=== PATIENT | female | born 1955 | race Asian ===

== ENCOUNTER → 2018-02-16 14:17 | Outpatient (CLI) | payer MEDICARE, OTHER, SELFPAY ==
--- NOTE | 2018-02-16 | DI.MRI.S_ITS ---
PROCEDURE: MR HEAD/BRAIN WO CON INDICATIONS: Tremors. Vertigo TECHNIQUE: Non-contrast axial T1 spin echo, axial T2 fast spin echo, sagittal and axial FLAIR, coronal T2 fast spin echo, axial gradient echo, axial diffusion and ADC through the brain. COMPARISON: None. FINDINGS: Image quality: Excellent. CSF spaces: Ventricles appear symmetric in size and shape. Basal cisterns are patent. No extra-axial fluid collections. Brain: No intracranial bleeds or mass effects. There is moderate cerebral volume loss for age. There are moderate periventricular and deep white matter chronic small vessel ischemic changes. Brainstem appears normal. Diffusion-weighted images show no acute ischemic insults. No chronic ischemic insults. Normal intravascular flow voids are present. Skull and face: Calvarial bone marrow is normal in signal. Orbits are normal. Sinuses: Sinuses and mastoids are clear. IMPRESSION: 1. No acute intracranial abnormalities. No definite findings to explain tumors and vertical. 2. Moderate cerebral volume loss and chronic microvascular ischemic changes. 3. Ventricular dilation may be secondary to central atrophy. A differential diagnosis is normal pressure hydrocephalus. Recommend clinical correlation. Dictated by: Marva Boyer M.D. on 02/16/2018 at 15:34 Approved by: Marva Boyer M.D. on 02/16/2018 at 15:38
== END ==
PROVIDERS: PCP Nurse Practitioner Family; Visit Provider Psychiatry & Neurology Neurology
DX: R25.1 Tremor, unspecified (principal); R42 Dizziness and giddiness; G93.89 Other specified disorders of brain
CPT/HCPCS: 70551

== ENCOUNTER 2018-03-22 14:30 | Outpatient (RCR) | payer MEDICARE, OTHER, SELFPAY ==
--- NOTE | 2018-02-26 17:26 | PT.OIE ---
Current Diagnoses Parkinson's disease (02/26/18) Past Medical History (Last Updated 02/26/18 @ 17:07 by Diana Cruz, PT) Vertigo (Acute) Past Surgical History (Last Updated 02/26/18 @ 17:07 by Diana Cruz, PT) Hx of shoulder surgery (Acute) Status post delivery Status post cholecystectomy Provider Visit Care Team Role Provider Type Emily Lilalupe STOVE INSTALLER- Primary Care Provider Non-Staff Specialty: Medical Address: [address] [place] [address], [id number] Email: Rimma Bauer MD Attending Provider Non-Staff Specialty: Neurology Address: [address] [place] [address], [address] Email: Physical Therapy Initial Evaluation PT-OP-A Visit Information Start: 02/26/18 16:40 Freq: Status: Active Protocol: Document 02/26/18 14:30 AMB (Rec: 02/26/18 16:52 AMB [email or web address]) Out-Patient Physical Therapy Visit Information Visit Information Visit Type Initial Evaluation Visit Start Time 14:30 Visit Stop Time 15:30 Total Visit Minutes 60 Visit Number 1 Evaluation Information Evaluation Date 02/26/18 PT-OP-B Current Condition Start: 02/26/18 16:40 Freq: Status: Active Protocol: Document 02/26/18 14:30 AMB (Rec: 02/26/18 16:52 AMB [email or web address]) Current Condition History of Current Condition History of Current Condition The patient lives with her Juan R and was recently diagnosed with Parkinson's although she reports symptoms for years. She is retired and walks an hour a day. She has tremors in bilateral UEs and LEs worse on the left. Sinemet has been helpful for her symptoms. Prior Functional Status Baseline Function- ADL's Independent Baseline Function- Mobility Independent Current Functional Impairments (Reported) Functional Limitations- Mobility/Gait intermittent difficulty with floor transfers, difficulty washing dishes due to L hand stiffnesss, difficulty writing Personal Factors Other Personal Factors That May Effect History of L shoulder surgery. Therapy/Recovery Trigger finger on R hand. On and off history of vertigo over the past 25 years+, history of motion sensitivity. PT-OP-C Subjective Start: 02/26/18 16:40 Freq: Status: Active Protocol: Document 02/26/18 14:30 AMB (Rec: 02/26/18 16:52 AMB [email or web address]) OP-PT Subjective Patient Comments Patient Reported Progress Improving Patient Questionnaires ABC- Activity Specific Balance Confidence Scale ABC Functional Impairment 0% Impaired (Score 100) PT-OP-D Balance Start: 02/26/18 17:00 Freq: Status: Active Protocol: Document 02/26/18 14:30 AMB (Rec: 02/26/18 17:03 AMB [email or web address]) Balance Tests Single Limb Standing Single Limb- Right 7 seconds Single Limb- Left 9 seconds Semi-Tandem Standing Semi-Tandem Standing Balance with slow head turns, no increase in symptoms, slight ankle sway. Other Other Balance Tests Performed Semi tandem Eyes closed- increased ankle sway forward so that she had to open her eyes within 5 seconds. PT-OP-E Functional Tests Start: 02/26/18 16:40 Freq: Status: Active Protocol: Document 02/26/18 14:30 AMB (Rec: 02/26/18 16:59 AMB [email or web address]) Functional Tests 6 Minute Walk Test Distance 1145 feet Device Used none Comments average for age/gender:1765 feet Five Times Sit to Stand Test Score 8 seconds Comments without UE assist PT-OP-G Mobility & Gait Start: 02/26/18 16:40 Freq: Status: Active Protocol: Document 02/26/18 14:30 AMB (Rec: 02/26/18 16:59 AMB [email or web address]) OP Gait Assessment Comments Gait Comments Decreased arm swing bilaterally worse on the L. Forefoot strike bilaterally. Lack of trunk rotation. PT-OP-J Posture/Palpation/Skin Start: 02/26/18 16:40 Freq: Status: Active Protocol: Document 02/26/18 14:30 AMB (Rec: 02/26/18 17:03 AMB [email or web address]) Posture Evaluation Comments Posture Comments Mild increased thoracic kyphosis. PT-OP-K Range of Motion Start: 02/26/18 16:40 Freq: Status: Active Protocol: Document 02/26/18 14:30 AMB (Rec: 02/26/18 16:59 AMB [email or web address]) Shoulder Goniometric Range of Motion Shoulder Measured in Degrees Left Active Testing Position Supine Flexion 145 Abduction 140 Right Active Testing Position Supine Flexion 170 Abduction 160 PT-OP-M Strength Start: 02/26/18 16:40 Freq: Status: Active Protocol: Document 02/26/18 14:30 AMB (Rec: 02/26/18 16:59 AMB [email or web address]) Hand Assisted Living Coordinator/Pinch Strength Hand Dominance Hand Dominance Left Hand Strength Right Assisted Living Coordinator (lbs) 25 Left Assisted Living Coordinator (lbs) 20 PT-OP-T Assessment and Plan Start: 02/26/18 16:40 Freq: Status: Active Protocol: Document 02/26/18 14:30 AMB (Rec: 02/26/18 17:25 AMB [email or web address]) Physical Therapy Assessment Rehab Potential Rehabilitation Potential Excellent Evaluation Complexity Number of Personal Factors/Comorbidities 1-2 Number of Body Systems Impaired 4 or More Clinical Presentation at Evaluation Evolving Impairments Impairments Balance Functional Activities Gait ROM Strength Goals Four Impairment ADLs Short Term Goal (STG) The patient will improve her customer advisor strength to 35# bilaterally. STG Duration 2 weeks Machine Repair Person Goal (LTG) The patient will improve her hand flexibility so that she can wash the inside of a water glass while washing dishes. LTG Duration 4 weeks Three Impairment Functional mobility Short Term Goal (STG) The patient will move from the floor to standing without environmental support. STG Duration 2 weeks Two Impairment Range of motion Short Term Goal (STG) The patient will increase her shoulder flexion AROM to 160 degrees to put dishes away in tall cabinets. STG Duration 2 weeks One Impairment Gait Short Term Goal (STG) The patient will show appropriate trunk rotation on her daily walks in the community. STG Duration 2 weeks Machine Repair Person Goal (LTG) The patient will improve her 6MWT to 1,325 feet (75% of normal for her gender/age). LTG Duration 4 weeks Assessment Summary Assessment The patient presents to physical therapy with a recent diagnosis of Parkinson's disease for LSVT BIG therapy. She presents with bilateral tremor and stiffness, most impacting her gait and fine motor activities. She presents with weakness, reduced range of motion, impaired balance and gait, and will benefit from physical therapy to improve her function and the amplitude of her motion. Physical Therapy Plan Frequency and Duration Frequency of Treatment 4x/Week Duration of Treatment 4 weeks Plan of Care Start Date 02/26/18 Plan of Care End Date 03/26/18 Therapeutic Interventions Therapeutic Interventions Balance Training Gait Training Home Exercise Program Manual Therapy Neuromuscular Re-education Therapeutic Activities Therapeutic Exercises Vestibular Rehabilitation Modalities Cold Pack/Ice Massage Electric Stimulation Hot Packs Next Visit Focus/Plan Next Note Type Treatment Note
--- NOTE | 2018-02-26 17:26 | PT.OPPOC ---
Current Diagnoses Parkinson's disease (02/26/18) Provider Visit Care Team [facility] Care Provider Non-Staff Specialty: Medical Address: [address], [address] Email: Rimma Bauer MD Attending Provider Non-Staff Specialty: Neurology Address: [address] [place], [address] Email: Plan Of Care PT-OP-T Assessment and Plan Start: 02/26/18 16:40 Freq: Status: Active Protocol: Document 02/26/18 14:30 AMB (Rec: 02/26/18 17:25 AMB [email or web address]) Physical Therapy Assessment Rehab Potential Rehabilitation Potential Excellent Evaluation Complexity Number of Personal Factors/Comorbidities 1-2 Number of Body Systems Impaired 4 or More Clinical Presentation at Evaluation Evolving Impairments Impairments Balance Functional Activities Gait ROM Strength Goals Four Impairment ADLs Short Term Goal (STG) The patient will improve her floor finisher helper strength to 35# bilaterally. STG Duration 2 weeks Getter Filler Goal (LTG) The patient will improve her hand flexibility so that she can wash the inside of a water glass while washing dishes. LTG Duration 4 weeks Three Impairment Functional mobility Short Term Goal (STG) The patient will move from the floor to standing without environmental support. STG Duration 2 weeks Two Impairment Range of motion Short Term Goal (STG) The patient will increase her shoulder flexion AROM to 160 degrees to put dishes away in tall cabinets. STG Duration 2 weeks One Impairment Gait Short Term Goal (STG) The patient will show appropriate trunk rotation on her daily walks in the community. STG Duration 2 weeks Custodial Goal (LTG) The patient will improve her 6MWT to 1,325 feet (75% of normal for her gender/age). LTG Duration 4 weeks Assessment Summary Assessment The patient presents to physical therapy with a recent diagnosis of Parkinson's disease for LSVT BIG therapy. She presents with bilateral tremor and stiffness, most impacting her gait and fine motor activities. She presents with weakness, reduced range of motion, impaired balance and gait, and will benefit from physical therapy to improve her function and the amplitude of her motion. Physical Therapy Plan Frequency and Duration Frequency of Treatment 4x/Week Duration of Treatment 4 weeks Plan of Care Start Date 02/26/18 Plan of Care End Date 03/26/18 Therapeutic Interventions Therapeutic Interventions Balance Training Gait Training Home Exercise Program Manual Therapy Neuromuscular Re-education Therapeutic Activities Therapeutic Exercises Vestibular Rehabilitation Modalities Cold Pack/Ice Massage Electric Stimulation Hot Packs Next Visit Focus/Plan Next Note Type Treatment Note Plan of Care Dates Plan of Care Start Date 02/26/18 Plan of Care End Date 03/26/18 Please Sign and Return: I have reviewed this Plan of Care and certify that the skilled therapy services above are required to meet the patient?s needs. Physician Signature Date Printed Name and Credentials Clinical Instructor Signature Printed Name and Credentials
--- NOTE | 2018-02-27 16:48 | PT.OTN ---
Current Diagnoses Parkinson's disease (02/27/18) Physical Therapy Treatment Note PT-OP-A Visit Information Start: 02/26/18 16:40 Freq: Status: Active Protocol: Document 02/27/18 14:30 AMB (Rec: 02/27/18 16:48 AMB [email or web address]) Out-Patient Physical Therapy Visit Information Visit Information Visit Type Treatment Note Visit Start Time 14:30 Visit Stop Time 15:30 Total Visit Minutes 60 Visit Number 2 Evaluation Information Evaluation Date 02/26/18 PT-OP-B Current Condition Start: 02/26/18 16:40 Freq: Status: Active Protocol: Document 02/26/18 14:30 AMB (Rec: 02/26/18 16:52 AMB [email or web address]) Current Condition History of Current Condition History of Current Condition The patient lives with her Juan R and was recently diagnosed with Parkinson's although she reports symptoms for years. She is retired and walks an hour a day. She has tremors in bilateral UEs and LEs worse on the left. Sinemet has been helpful for her symptoms. Prior Functional Status Baseline Function- ADL's Independent Baseline Function- Mobility Independent Current Functional Impairments (Reported) Functional Limitations- Mobility/Gait intermittent difficulty with floor transfers, difficulty washing dishes due to L hand stiffnesss, difficulty writing Personal Factors Other Personal Factors That May Effect History of L shoulder surgery. Therapy/Recovery Trigger finger on R hand. On and off history of vertigo over the past 25 years+, history of motion sensitivity. PT-OP-C Subjective Start: 02/26/18 16:40 Freq: Status: Active Protocol: Document 02/27/18 14:30 AMB (Rec: 02/27/18 16:48 AMB [email or web address]) OP-PT Subjective Patient Comments Patient Comments Pt reports she has already done her rashmi exercises today. PT-OP-D Balance Start: 02/26/18 17:00 Freq: Status: Active Protocol: Document 02/26/18 14:30 AMB (Rec: 02/26/18 17:03 AMB [email or web address]) Balance Tests Single Limb Standing Single Limb- Right 7 seconds Single Limb- Left 9 seconds Semi-Tandem Standing Semi-Tandem Standing Balance with slow head turns, no increase in symptoms, slight ankle sway. Other Other Balance Tests Performed Semi tandem Eyes closed- increased ankle sway forward so that she had to open her eyes within 5 seconds. PT-OP-E Functional Tests Start: 02/26/18 16:40 Freq: Status: Active Protocol: Document 02/26/18 14:30 AMB (Rec: 02/26/18 16:59 AMB [email or web address]) Functional Tests 6 Minute Walk Test Distance 1145 feet Device Used none Comments average for age/gender:1765 feet Five Times Sit to Stand Test Score 8 seconds Comments without UE assist PT-OP-G Mobility & Gait Start: 02/26/18 16:40 Freq: Status: Active Protocol: Document 02/26/18 14:30 AMB (Rec: 02/26/18 16:59 AMB [email or web address]) OP Gait Assessment Comments Gait Comments Decreased arm swing bilaterally worse on the L. Forefoot strike bilaterally. Lack of trunk rotation. PT-OP-J Posture/Palpation/Skin Start: 02/26/18 16:40 Freq: Status: Active Protocol: Document 02/26/18 14:30 AMB (Rec: 02/26/18 17:03 AMB [email or web address]) Posture Evaluation Comments Posture Comments Mild increased thoracic kyphosis. PT-OP-K Range of Motion Start: 02/26/18 16:40 Freq: Status: Active Protocol: Document 02/26/18 14:30 AMB (Rec: 02/26/18 16:59 AMB [email or web address]) Shoulder Goniometric Range of Motion Shoulder Measured in Degrees Left Active Testing Position Supine Flexion 145 Abduction 140 Right Active Testing Position Supine Flexion 170 Abduction 160 PT-OP-M Strength Start: 02/26/18 16:40 Freq: Status: Active Protocol: Document 02/26/18 14:30 AMB (Rec: 02/26/18 16:59 AMB [email or web address]) Hand Business Continuity Manager/Pinch Strength Hand Dominance Hand Dominance Left Hand Strength Right Business Continuity Manager (lbs) 25 Left Business Continuity Manager (lbs) 20 PT-OP-Q Treatments Start: 02/26/18 16:40 Freq: Status: Active Protocol: Document 02/27/18 14:30 AMB (Rec: 02/27/18 16:48 AMB [email or web address]) Therapeutic Exercises Sitting Exercises 3 Sitting Exercise Name gripping, finger extension Equipment Used red theraputty 2 Sitting Exercise Name Trunk rotation with forward shoulder reach Reps/Minutes 8 1 Sitting Exercise Name Forward flexion with shoulder horizontal abduction Reps/Minutes 8 Gait Training Gait Activity 1 Description smooth surfaces Comments vc for stride length, trunk rotation Neuro Re-Education Treatment Balance Activities 5 Details WBOS with trunk rotation Reps/Duration 12 Comments B UE reach 4 Details a/p weightshift in stride stance Reps/Duration 12 Comments B UE reach alternating 3 Details Backward stepping Reps/Duration 10 Comments B UE reach 2 Details Lateral stepping Reps/Duration 10 Comments B UE reach 1 Details Forward stepping Reps/Duration 10 Comments B UE reach PT-OP-T Assessment and Plan Start: 02/26/18 16:40 Freq: Status: Active Protocol: Document 02/27/18 14:30 AMB (Rec: 02/27/18 16:48 AMB [email or web address]) Physical Therapy Assessment Assessment Summary Assessment Pt should be able to perform exercises without UE support at home safely. Good tolerance but needs cueing for form. Physical Therapy Plan Next Visit Focus/Plan Next Note Type Treatment Note Next Visit Plan Progress gait/balance
--- NOTE | 2018-02-28 16:56 | PT.OTN ---
Current Diagnoses Parkinson's disease (02/28/18) Physical Therapy Treatment Note PT-OP-A Visit Information Start: 02/26/18 16:40 Freq: Status: Active Protocol: Document 02/28/18 14:30 AMB (Rec: 02/28/18 15:12 AMB [id number]) Out-Patient Physical Therapy Visit Information Visit Information Visit Type Treatment Note Visit Start Time 14:30 Visit Stop Time 15:30 Total Visit Minutes 60 Visit Number 3 Evaluation Information Evaluation Date 02/26/18 PT-OP-B Current Condition Start: 02/26/18 16:40 Freq: Status: Active Protocol: Document 02/26/18 14:30 AMB (Rec: 02/26/18 16:52 AMB [email or web address]) Current Condition History of Current Condition History of Current Condition The patient lives with her Juan R and was recently diagnosed with Parkinson's although she reports symptoms for years. She is retired and walks an hour a day. She has tremors in bilateral UEs and LEs worse on the left. Sinemet has been helpful for her symptoms. Prior Functional Status Baseline Function- ADL's Independent Baseline Function- Mobility Independent Current Functional Impairments (Reported) Functional Limitations- Mobility/Gait intermittent difficulty with floor transfers, difficulty washing dishes due to L hand stiffnesss, difficulty writing Personal Factors Other Personal Factors That May Effect History of L shoulder surgery. Therapy/Recovery Trigger finger on R hand. On and off history of vertigo over the past 25 years+, history of motion sensitivity. PT-OP-C Subjective Start: 02/26/18 16:40 Freq: Status: Active Protocol: Document 02/28/18 14:30 AMB (Rec: 02/28/18 15:12 AMB [id number]) OP-PT Subjective Patient Comments Patient Comments Pt states she did the exercises 10x. PT-OP-D Balance Start: 02/26/18 17:00 Freq: Status: Active Protocol: Document 02/26/18 14:30 AMB (Rec: 02/26/18 17:03 AMB [email or web address]) Balance Tests Single Limb Standing Single Limb- Right 7 seconds Single Limb- Left 9 seconds Semi-Tandem Standing Semi-Tandem Standing Balance with slow head turns, no increase in symptoms, slight ankle sway. Other Other Balance Tests Performed Semi tandem Eyes closed- increased ankle sway forward so that she had to open her eyes within 5 seconds. PT-OP-E Functional Tests Start: 02/26/18 16:40 Freq: Status: Active Protocol: Document 02/26/18 14:30 AMB (Rec: 02/26/18 16:59 AMB [email or web address]) Functional Tests 6 Minute Walk Test Distance 1145 feet Device Used none Comments average for age/gender:1765 feet Five Times Sit to Stand Test Score 8 seconds Comments without UE assist PT-OP-G Mobility & Gait Start: 02/26/18 16:40 Freq: Status: Active Protocol: Document 02/26/18 14:30 AMB (Rec: 02/26/18 16:59 AMB [email or web address]) OP Gait Assessment Comments Gait Comments Decreased arm swing bilaterally worse on the L. Forefoot strike bilaterally. Lack of trunk rotation. PT-OP-J Posture/Palpation/Skin Start: 02/26/18 16:40 Freq: Status: Active Protocol: Document 02/26/18 14:30 AMB (Rec: 02/26/18 17:03 AMB [email or web address]) Posture Evaluation Comments Posture Comments Mild increased thoracic kyphosis. PT-OP-K Range of Motion Start: 02/26/18 16:40 Freq: Status: Active Protocol: Document 02/26/18 14:30 AMB (Rec: 02/26/18 16:59 AMB [email or web address]) Shoulder Goniometric Range of Motion Shoulder Measured in Degrees Left Active Testing Position Supine Flexion 145 Abduction 140 Right Active Testing Position Supine Flexion 170 Abduction 160 PT-OP-M Strength Start: 02/26/18 16:40 Freq: Status: Active Protocol: Document 02/26/18 14:30 AMB (Rec: 02/26/18 16:59 AMB [email or web address]) Hand Director Of Career Services/Pinch Strength Hand Dominance Hand Dominance Left Hand Strength Right Director Of Career Services (lbs) 25 Left Director Of Career Services (lbs) 20 PT-OP-Q Treatments Start: 02/26/18 16:40 Freq: Status: Active Protocol: Document 02/28/18 14:30 AMB (Rec: 02/28/18 16:55 AMB [email or web address]) Gym Equipment Shuttle Balance 1 Details RED Reps/Duration 10 min Comments WBOS with eyes closed and then head turns Therapeutic Exercises Sitting Exercises 2 Sitting Exercise Name Trunk rotation with forward shoulder reach Reps/Minutes 8 1 Sitting Exercise Name Forward flexion with shoulder horizontal abduction Reps/Minutes 8 Standing Exercises 1 Standing Exercise Name sidestepping Reps/Minutes 6 x 20' Comments yellow t band Neuro Re-Education Treatment Balance Activities 5 Details WBOS with trunk rotation Reps/Duration 12 Comments B UE reach 4 Details a/p weightshift in stride stance Reps/Duration 12 Comments B UE reach alternating 3 Details Backward stepping Reps/Duration 10 Comments B UE reach 2 Details Lateral stepping Reps/Duration 10 Comments B UE reach 1 Details Forward stepping Reps/Duration 10 Comments B UE reach PT-OP-T Assessment and Plan Start: 02/26/18 16:40 Freq: Status: Active Protocol: Document 02/28/18 14:30 AMB (Rec: 02/28/18 16:55 AMB [email or web address]) Physical Therapy Assessment Goals Four Impairment ADLs Short Term Goal (STG) The patient will improve her data modeling specialist strength to 35# bilaterally. STG Duration 2 weeks Leasing Representative Goal (LTG) The patient will improve her hand flexibility so that she can wash the inside of a water glass while washing dishes. LTG Duration 4 weeks Three Impairment Functional mobility Short Term Goal (STG) The patient will move from the floor to standing without environmental support. STG Duration 2 weeks Two Impairment Range of motion Short Term Goal (STG) The patient will increase her shoulder flexion AROM to 160 degrees to put dishes away in tall cabinets. STG Duration 2 weeks One Impairment Gait Short Term Goal (STG) The patient will show appropriate trunk rotation on her daily walks in the community. STG Duration 2 weeks Leasing Representative Goal (LTG) The patient will improve her 6MWT to 1,325 feet (75% of normal for her gender/age). LTG Duration 4 weeks Assessment Summary Assessment The pt did well with remembering her exercises and doing them at home. She continues to need verbal cues for appropriate form. She is weak in L hip abduction and toes out more on the left than the right with gait and balance activity. Physical Therapy Plan Next Visit Focus/Plan Next Note Type Treatment Note Next Visit Plan Progress dynamic balance and trunk rotation
--- NOTE | 2018-03-01 15:51 | PT.OTN ---
Current Diagnoses Parkinson's disease (03/01/18) Physical Therapy Treatment Note PT-OP-A Visit Information Start: 02/26/18 16:40 Freq: Status: Active Protocol: Document 03/01/18 14:30 AMB (Rec: 03/01/18 15:04 AMB [id number]) Out-Patient Physical Therapy Visit Information Visit Information Visit Type Treatment Note Visit Start Time 14:30 Visit Stop Time 15:30 Total Visit Minutes 60 Visit Number 4 Evaluation Information Evaluation Date 02/26/18 PT-OP-B Current Condition Start: 02/26/18 16:40 Freq: Status: Active Protocol: Document 02/26/18 14:30 AMB (Rec: 02/26/18 16:52 AMB [email or web address]) Current Condition History of Current Condition History of Current Condition The patient lives with her Juan R and was recently diagnosed with Parkinson's although she reports symptoms for years. She is retired and walks an hour a day. She has tremors in bilateral UEs and LEs worse on the left. Sinemet has been helpful for her symptoms. Prior Functional Status Baseline Function- ADL's Independent Baseline Function- Mobility Independent Current Functional Impairments (Reported) Functional Limitations- Mobility/Gait intermittent difficulty with floor transfers, difficulty washing dishes due to L hand stiffnesss, difficulty writing Personal Factors Other Personal Factors That May Effect History of L shoulder surgery. Therapy/Recovery Trigger finger on R hand. On and off history of vertigo over the past 25 years+, history of motion sensitivity. PT-OP-C Subjective Start: 02/26/18 16:40 Freq: Status: Active Protocol: Document 03/01/18 14:30 AMB (Rec: 03/01/18 15:04 AMB [id number]) OP-PT Subjective Patient Comments Patient Comments Pt did all fo her exercises. PT-OP-D Balance Start: 02/26/18 17:00 Freq: Status: Active Protocol: Document 02/26/18 14:30 AMB (Rec: 02/26/18 17:03 AMB [email or web address]) Balance Tests Single Limb Standing Single Limb- Right 7 seconds Single Limb- Left 9 seconds Semi-Tandem Standing Semi-Tandem Standing Balance with slow head turns, no increase in symptoms, slight ankle sway. Other Other Balance Tests Performed Semi tandem Eyes closed- increased ankle sway forward so that she had to open her eyes within 5 seconds. PT-OP-E Functional Tests Start: 02/26/18 16:40 Freq: Status: Active Protocol: Document 02/26/18 14:30 AMB (Rec: 02/26/18 16:59 AMB [email or web address]) Functional Tests 6 Minute Walk Test Distance 1145 feet Device Used none Comments average for age/gender:1765 feet Five Times Sit to Stand Test Score 8 seconds Comments without UE assist PT-OP-G Mobility & Gait Start: 02/26/18 16:40 Freq: Status: Active Protocol: Document 02/26/18 14:30 AMB (Rec: 02/26/18 16:59 AMB [email or web address]) OP Gait Assessment Comments Gait Comments Decreased arm swing bilaterally worse on the L. Forefoot strike bilaterally. Lack of trunk rotation. PT-OP-J Posture/Palpation/Skin Start: 02/26/18 16:40 Freq: Status: Active Protocol: Document 02/26/18 14:30 AMB (Rec: 02/26/18 17:03 AMB [email or web address]) Posture Evaluation Comments Posture Comments Mild increased thoracic kyphosis. PT-OP-K Range of Motion Start: 02/26/18 16:40 Freq: Status: Active Protocol: Document 02/26/18 14:30 AMB (Rec: 02/26/18 16:59 AMB [email or web address]) Shoulder Goniometric Range of Motion Shoulder Measured in Degrees Left Active Testing Position Supine Flexion 145 Abduction 140 Right Active Testing Position Supine Flexion 170 Abduction 160 PT-OP-M Strength Start: 02/26/18 16:40 Freq: Status: Active Protocol: Document 02/26/18 14:30 AMB (Rec: 02/26/18 16:59 AMB [email or web address]) Hand Logistics Supply Officer/Pinch Strength Hand Dominance Hand Dominance Left Hand Strength Right Logistics Supply Officer (lbs) 25 Left Logistics Supply Officer (lbs) 20 PT-OP-Q Treatments Start: 02/26/18 16:40 Freq: Status: Active Protocol: Document 03/01/18 14:30 AMB (Rec: 03/01/18 15:13 AMB [id number]) Therapeutic Exercises Supine Exercises 1 Supine Exercise Name IT band stretch Comments 30x2 2 Supine Exercise Name hamstring stretch Reps/Minutes 30x2 Sidelying Exercises 1 Sidelying Exercise Name hip abduction Reps/Minutes 2x10 Sitting Exercises 2 Sitting Exercise Name Trunk rotation with forward shoulder reach Reps/Minutes 8 1 Sitting Exercise Name Forward flexion with shoulder horizontal abduction Reps/Minutes 8 Standing Exercises 1 Standing Exercise Name sidestepping Reps/Minutes 6 x 20' Comments yellow t band Neuro Re-Education Treatment Balance Activities 5 Details WBOS with trunk rotation Reps/Duration 12 Comments B UE reach 4 Details a/p weightshift in stride stance Reps/Duration 12 Comments B UE reach alternating 3 Details Backward stepping Reps/Duration 10 Comments B UE reach 2 Details Lateral stepping Reps/Duration 10 Comments B UE reach 1 Details Forward stepping Reps/Duration 10 Comments B UE reach PT-OP-T Assessment and Plan Start: 02/26/18 16:40 Freq: Status: Active Protocol: Document 03/01/18 14:30 AMB (Rec: 03/01/18 15:51 AMB [email or web address]) Physical Therapy Assessment Assessment Summary Assessment Pt continues to be weak in hip abduction, but overall is very compliant with her exercises. Physical Therapy Plan Next Visit Focus/Plan Next Note Type Treatment Note Next Visit Plan Progress dynamic stability
--- NOTE | 2018-03-05 17:38 | PT.OTN ---
Current Diagnoses Parkinson's disease (03/05/18) Physical Therapy Treatment Note PT-OP-A Visit Information Start: 02/26/18 16:40 Freq: Status: Active Protocol: Document 03/05/18 14:30 AMB (Rec: 03/05/18 15:17 AMB [id number]) Out-Patient Physical Therapy Visit Information Visit Information Visit Type Treatment Note Visit Start Time 14:30 Visit Stop Time 15:30 Total Visit Minutes 60 Visit Number 5 Evaluation Information Evaluation Date 02/26/18 PT-OP-B Current Condition Start: 02/26/18 16:40 Freq: Status: Active Protocol: Document 02/26/18 14:30 AMB (Rec: 02/26/18 16:52 AMB [email or web address]) Current Condition History of Current Condition History of Current Condition The patient lives with her Juan R and was recently diagnosed with Parkinson's although she reports symptoms for years. She is retired and walks an hour a day. She has tremors in bilateral UEs and LEs worse on the left. Sinemet has been helpful for her symptoms. Prior Functional Status Baseline Function- ADL's Independent Baseline Function- Mobility Independent Current Functional Impairments (Reported) Functional Limitations- Mobility/Gait intermittent difficulty with floor transfers, difficulty washing dishes due to L hand stiffnesss, difficulty writing Personal Factors Other Personal Factors That May Effect History of L shoulder surgery. Therapy/Recovery Trigger finger on R hand. On and off history of vertigo over the past 25 years+, history of motion sensitivity. PT-OP-C Subjective Start: 02/26/18 16:40 Freq: Status: Active Protocol: Document 03/05/18 14:30 AMB (Rec: 03/05/18 15:17 AMB [id number]) OP-PT Subjective Patient Comments Patient Comments Pt notes a litte soreness in her bilateral hips with hip abd exercises. PT-OP-D Balance Start: 02/26/18 17:00 Freq: Status: Active Protocol: Document 02/26/18 14:30 AMB (Rec: 02/26/18 17:03 AMB [email or web address]) Balance Tests Single Limb Standing Single Limb- Right 7 seconds Single Limb- Left 9 seconds Semi-Tandem Standing Semi-Tandem Standing Balance with slow head turns, no increase in symptoms, slight ankle sway. Other Other Balance Tests Performed Semi tandem Eyes closed- increased ankle sway forward so that she had to open her eyes within 5 seconds. PT-OP-E Functional Tests Start: 02/26/18 16:40 Freq: Status: Active Protocol: Document 02/26/18 14:30 AMB (Rec: 02/26/18 16:59 AMB [email or web address]) Functional Tests 6 Minute Walk Test Distance 1145 feet Device Used none Comments average for age/gender:1765 feet Five Times Sit to Stand Test Score 8 seconds Comments without UE assist PT-OP-G Mobility & Gait Start: 02/26/18 16:40 Freq: Status: Active Protocol: Document 02/26/18 14:30 AMB (Rec: 02/26/18 16:59 AMB [email or web address]) OP Gait Assessment Comments Gait Comments Decreased arm swing bilaterally worse on the L. Forefoot strike bilaterally. Lack of trunk rotation. PT-OP-J Posture/Palpation/Skin Start: 02/26/18 16:40 Freq: Status: Active Protocol: Document 02/26/18 14:30 AMB (Rec: 02/26/18 17:03 AMB [email or web address]) Posture Evaluation Comments Posture Comments Mild increased thoracic kyphosis. PT-OP-K Range of Motion Start: 02/26/18 16:40 Freq: Status: Active Protocol: Document 02/26/18 14:30 AMB (Rec: 02/26/18 16:59 AMB [email or web address]) Shoulder Goniometric Range of Motion Shoulder Measured in Degrees Left Active Testing Position Supine Flexion 145 Abduction 140 Right Active Testing Position Supine Flexion 170 Abduction 160 PT-OP-M Strength Start: 02/26/18 16:40 Freq: Status: Active Protocol: Document 02/26/18 14:30 AMB (Rec: 02/26/18 16:59 AMB [email or web address]) Hand Central Office Associate/Pinch Strength Hand Dominance Hand Dominance Left Hand Strength Right Central Office Associate (lbs) 25 Left Central Office Associate (lbs) 20 PT-OP-Q Treatments Start: 02/26/18 16:40 Freq: Status: Active Protocol: Document 03/05/18 14:30 AMB (Rec: 03/05/18 15:36 AMB [id number]) Gym Equipment Shuttle Balance 1 Details RED Reps/Duration 10 min Comments WBOS with eyes closed and then head turns Therapeutic Exercises Supine Exercises 1 Supine Exercise Name IT band stretch Comments 30x2 2 Supine Exercise Name hamstring stretch Reps/Minutes 30x2 Sidelying Exercises 1 Sidelying Exercise Name hip abduction Reps/Minutes 2x10 Sitting Exercises 2 Sitting Exercise Name Trunk rotation with forward shoulder reach Reps/Minutes 8 1 Sitting Exercise Name Forward flexion with shoulder horizontal abduction Reps/Minutes 8 Standing Exercises 2 Standing Exercise Name UE ext Resistance #2 t band Comments 2x10 1 Standing Exercise Name sidestepping Reps/Minutes 6 x 20' Comments yellow t band Gait Training Gait Activity 1 Description smooth surfaces Comments vc for stride length, trunk rotation Neuro Re-Education Treatment Balance Activities 5 Details WBOS with trunk rotation Reps/Duration 12 Comments B UE reach 4 Details a/p weightshift in stride stance Reps/Duration 12 Comments B UE reach alternating 3 Details Backward stepping Reps/Duration 10 Comments B UE reach 2 Details Lateral stepping Reps/Duration 10 Comments B UE reach 1 Details Forward stepping Reps/Duration 10 Comments B UE reach PT-OP-T Assessment and Plan Start: 02/26/18 16:40 Freq: Status: Active Protocol: Document 03/05/18 14:30 AMB (Rec: 03/05/18 17:38 AMB [email or web address]) Physical Therapy Assessment Assessment Summary Assessment Pt progressing well, will need to progress wrist coordination exercises Physical Therapy Plan Next Visit Focus/Plan Next Note Type Treatment Note Next Visit Plan Progress UE coordination
--- NOTE | 2018-03-07 07:20 | PT.OTN ---
Current Diagnoses Parkinson's disease (03/06/18) Physical Therapy Treatment Note PT-OP-A Visit Information Start: 02/26/18 16:40 Freq: Status: Active Protocol: Document 03/06/18 15:15 AMB (Rec: 03/07/18 07:15 AMB [email or web address]) Out-Patient Physical Therapy Visit Information Visit Information Visit Type Treatment Note Visit Start Time 14:30 Visit Stop Time 15:30 Total Visit Minutes 60 Visit Number 6 Evaluation Information Evaluation Date 02/26/18 PT-OP-B Current Condition Start: 02/26/18 16:40 Freq: Status: Active Protocol: Document 02/26/18 14:30 AMB (Rec: 02/26/18 16:52 AMB [email or web address]) Current Condition History of Current Condition History of Current Condition The patient lives with her Juan R and was recently diagnosed with Parkinson's although she reports symptoms for years. She is retired and walks an hour a day. She has tremors in bilateral UEs and LEs worse on the left. Sinemet has been helpful for her symptoms. Prior Functional Status Baseline Function- ADL's Independent Baseline Function- Mobility Independent Current Functional Impairments (Reported) Functional Limitations- Mobility/Gait intermittent difficulty with floor transfers, difficulty washing dishes due to L hand stiffnesss, difficulty writing Personal Factors Other Personal Factors That May Effect History of L shoulder surgery. Therapy/Recovery Trigger finger on R hand. On and off history of vertigo over the past 25 years+, history of motion sensitivity. PT-OP-C Subjective Start: 02/26/18 16:40 Freq: Status: Active Protocol: Document 03/06/18 15:15 AMB (Rec: 03/07/18 07:15 AMB [email or web address]) OP-PT Subjective Patient Comments Patient Comments Pt walked for an hour yesterday PT-OP-D Balance Start: 02/26/18 17:00 Freq: Status: Active Protocol: Document 02/26/18 14:30 AMB (Rec: 02/26/18 17:03 AMB [email or web address]) Balance Tests Single Limb Standing Single Limb- Right 7 seconds Single Limb- Left 9 seconds Semi-Tandem Standing Semi-Tandem Standing Balance with slow head turns, no increase in symptoms, slight ankle sway. Other Other Balance Tests Performed Semi tandem Eyes closed- increased ankle sway forward so that she had to open her eyes within 5 seconds. PT-OP-E Functional Tests Start: 02/26/18 16:40 Freq: Status: Active Protocol: Document 02/26/18 14:30 AMB (Rec: 02/26/18 16:59 AMB [email or web address]) Functional Tests 6 Minute Walk Test Distance 1145 feet Device Used none Comments average for age/gender:1765 feet Five Times Sit to Stand Test Score 8 seconds Comments without UE assist PT-OP-G Mobility & Gait Start: 02/26/18 16:40 Freq: Status: Active Protocol: Document 02/26/18 14:30 AMB (Rec: 02/26/18 16:59 AMB [email or web address]) OP Gait Assessment Comments Gait Comments Decreased arm swing bilaterally worse on the L. Forefoot strike bilaterally. Lack of trunk rotation. PT-OP-J Posture/Palpation/Skin Start: 02/26/18 16:40 Freq: Status: Active Protocol: Document 02/26/18 14:30 AMB (Rec: 02/26/18 17:03 AMB [email or web address]) Posture Evaluation Comments Posture Comments Mild increased thoracic kyphosis. PT-OP-K Range of Motion Start: 02/26/18 16:40 Freq: Status: Active Protocol: Document 02/26/18 14:30 AMB (Rec: 02/26/18 16:59 AMB [email or web address]) Shoulder Goniometric Range of Motion Shoulder Measured in Degrees Left Active Testing Position Supine Flexion 145 Abduction 140 Right Active Testing Position Supine Flexion 170 Abduction 160 PT-OP-M Strength Start: 02/26/18 16:40 Freq: Status: Active Protocol: Document 02/26/18 14:30 AMB (Rec: 02/26/18 16:59 AMB [email or web address]) Hand Marketing Database Coordinator/Pinch Strength Hand Dominance Hand Dominance Left Hand Strength Right Marketing Database Coordinator (lbs) 25 Left Marketing Database Coordinator (lbs) 20 PT-OP-Q Treatments Start: 02/26/18 16:40 Freq: Status: Active Protocol: Document 03/06/18 15:15 AMB (Rec: 03/07/18 07:15 AMB [email or web address]) Gym Equipment Shuttle Balance 1 Details RED Reps/Duration 10 min Comments stride stance with eyes closed and then head turns Therapeutic Exercises Supine Exercises 2 Supine Exercise Name hamstring stretch Reps/Minutes 30x2 Sidelying Exercises 1 Sidelying Exercise Name hip abduction Reps/Minutes 2x10 Sitting Exercises 2 Sitting Exercise Name Trunk rotation with forward shoulder reach Reps/Minutes 8 1 Sitting Exercise Name Forward flexion with shoulder horizontal abduction Reps/Minutes 8 Standing Exercises 2 Standing Exercise Name UE ext Resistance #2 t band Comments 2x10 Neuro Re-Education Treatment Balance Activities 5 Details WBOS with trunk rotation Reps/Duration 12 Comments B UE reach 4 Details a/p weightshift in stride stance Reps/Duration 12 Comments B UE reach alternating 3 Details Backward stepping Reps/Duration 10 Comments B UE reach 2 Details Lateral stepping Reps/Duration 10 Comments B UE reach 1 Details Forward stepping Reps/Duration 10 Comments B UE reach PT-OP-T Assessment and Plan Start: 02/26/18 16:40 Freq: Status: Active Protocol: Document 03/06/18 15:15 AMB (Rec: 03/07/18 07:15 AMB [email or web address]) Physical Therapy Assessment Goals Four Impairment ADLs Short Term Goal (STG) The patient will improve her carrier operator strength to 35# bilaterally. STG Duration 2 weeks Scoop Driver Goal (LTG) The patient will improve her hand flexibility so that she can wash the inside of a water glass while washing dishes. LTG Duration 4 weeks Three Impairment Functional mobility Short Term Goal (STG) The patient will move from the floor to standing without environmental support. STG Duration 2 weeks Two Impairment Range of motion Short Term Goal (STG) The patient will increase her shoulder flexion AROM to 160 degrees to put dishes away in tall cabinets. STG Duration 2 weeks One Impairment Gait Short Term Goal (STG) The patient will show appropriate trunk rotation on her daily walks in the community. STG Duration 2 weeks Scoop Driver Goal (LTG) The patient will improve her 6MWT to 1,325 feet (75% of normal for her gender/age). LTG Duration 4 weeks Assessment Summary Assessment Pt tolerates balance exercises well Physical Therapy Plan Next Visit Focus/Plan Next Note Type Treatment Note Next Visit Plan Progress coordination exercises
--- NOTE | 2018-03-07 15:34 | PT.OTN ---
Current Diagnoses Parkinson's disease (03/07/18) Physical Therapy Treatment Note PT-OP-A Visit Information Start: 02/26/18 16:40 Freq: Status: Active Protocol: Document 03/07/18 14:30 AMB (Rec: 03/07/18 15:24 AMB [id number]) Out-Patient Physical Therapy Visit Information Visit Information Visit Type Treatment Note Visit Start Time 14:30 Visit Stop Time 15:30 Total Visit Minutes 60 Visit Number 7 Evaluation Information Evaluation Date 02/26/18 PT-OP-B Current Condition Start: 02/26/18 16:40 Freq: Status: Active Protocol: Document 02/26/18 14:30 AMB (Rec: 02/26/18 16:52 AMB [email or web address]) Current Condition History of Current Condition History of Current Condition The patient lives with her Juan R and was recently diagnosed with Parkinson's although she reports symptoms for years. She is retired and walks an hour a day. She has tremors in bilateral UEs and LEs worse on the left. Sinemet has been helpful for her symptoms. Prior Functional Status Baseline Function- ADL's Independent Baseline Function- Mobility Independent Current Functional Impairments (Reported) Functional Limitations- Mobility/Gait intermittent difficulty with floor transfers, difficulty washing dishes due to L hand stiffnesss, difficulty writing Personal Factors Other Personal Factors That May Effect History of L shoulder surgery. Therapy/Recovery Trigger finger on R hand. On and off history of vertigo over the past 25 years+, history of motion sensitivity. PT-OP-C Subjective Start: 02/26/18 16:40 Freq: Status: Active Protocol: Document 03/07/18 14:30 AMB (Rec: 03/07/18 15:24 AMB [id number]) OP-PT Subjective Patient Comments Patient Comments Pt notes R knee pain today, perhaps from the squats she was doing. PT-OP-D Balance Start: 02/26/18 17:00 Freq: Status: Active Protocol: Document 02/26/18 14:30 AMB (Rec: 02/26/18 17:03 AMB [email or web address]) Balance Tests Single Limb Standing Single Limb- Right 7 seconds Single Limb- Left 9 seconds Semi-Tandem Standing Semi-Tandem Standing Balance with slow head turns, no increase in symptoms, slight ankle sway. Other Other Balance Tests Performed Semi tandem Eyes closed- increased ankle sway forward so that she had to open her eyes within 5 seconds. PT-OP-E Functional Tests Start: 02/26/18 16:40 Freq: Status: Active Protocol: Document 02/26/18 14:30 AMB (Rec: 02/26/18 16:59 AMB [email or web address]) Functional Tests 6 Minute Walk Test Distance 1145 feet Device Used none Comments average for age/gender:1765 feet Five Times Sit to Stand Test Score 8 seconds Comments without UE assist PT-OP-G Mobility & Gait Start: 02/26/18 16:40 Freq: Status: Active Protocol: Document 02/26/18 14:30 AMB (Rec: 02/26/18 16:59 AMB [email or web address]) OP Gait Assessment Comments Gait Comments Decreased arm swing bilaterally worse on the L. Forefoot strike bilaterally. Lack of trunk rotation. PT-OP-J Posture/Palpation/Skin Start: 02/26/18 16:40 Freq: Status: Active Protocol: Document 02/26/18 14:30 AMB (Rec: 02/26/18 17:03 AMB [email or web address]) Posture Evaluation Comments Posture Comments Mild increased thoracic kyphosis. PT-OP-K Range of Motion Start: 02/26/18 16:40 Freq: Status: Active Protocol: Document 02/26/18 14:30 AMB (Rec: 02/26/18 16:59 AMB [email or web address]) Shoulder Goniometric Range of Motion Shoulder Measured in Degrees Left Active Testing Position Supine Flexion 145 Abduction 140 Right Active Testing Position Supine Flexion 170 Abduction 160 PT-OP-M Strength Start: 02/26/18 16:40 Freq: Status: Active Protocol: Document 02/26/18 14:30 AMB (Rec: 02/26/18 16:59 AMB [email or web address]) Hand Feather Maker/Pinch Strength Hand Dominance Hand Dominance Left Hand Strength Right Feather Maker (lbs) 25 Left Feather Maker (lbs) 20 PT-OP-Q Treatments Start: 02/26/18 16:40 Freq: Status: Active Protocol: Document 03/07/18 14:30 AMB (Rec: 03/07/18 15:24 AMB [id number]) Therapeutic Exercises Supine Exercises 2 Supine Exercise Name hamstring stretch Reps/Minutes 30x2 Sidelying Exercises 1 Sidelying Exercise Name hip abduction Reps/Minutes 2x10 Sitting Exercises 2 Sitting Exercise Name Trunk rotation with forward shoulder reach Reps/Minutes 8 1 Sitting Exercise Name Forward flexion with shoulder horizontal abduction Reps/Minutes 8 Therapeutic Activity Therapeutic Activity 1 Name Rolling lumpia Comments with theraband, fine motor practice Neuro Re-Education Treatment Balance Activities 5 Details WBOS with trunk rotation Reps/Duration 12 Comments B UE reach 4 Details a/p weightshift in stride stance Reps/Duration 12 Comments B UE reach alternating 3 Details Backward stepping Reps/Duration 10 Comments B UE reach 2 Details Lateral stepping Reps/Duration 10 Comments B UE reach 1 Details Forward stepping Reps/Duration 10 Comments B UE reach PT-OP-T Assessment and Plan Start: 02/26/18 16:40 Freq: Status: Active Protocol: Document 03/07/18 14:30 AMB (Rec: 03/07/18 15:24 AMB [id number]) Physical Therapy Assessment Assessment Summary Assessment Rolling the lumpia is difficult with the tremor. Left shoulder limits mixing activities. Physical Therapy Plan Next Visit Focus/Plan Next Note Type Treatment Note Next Visit Plan Folloow up on rolling lumpia other fine motor activities
--- NOTE | 2018-03-09 16:26 | PT.OTN ---
Current Diagnoses Parkinson's disease (03/09/18) Physical Therapy Treatment Note PT-OP-A Visit Information Start: 02/26/18 16:40 Freq: Status: Active Protocol: Document 03/09/18 15:30 AMB (Rec: 03/09/18 16:06 AMB [email or web address]) Out-Patient Physical Therapy Visit Information Visit Information Visit Type Treatment Note Visit Start Time 14:30 Visit Stop Time 15:30 Total Visit Minutes 60 Visit Number 8 Evaluation Information Evaluation Date 02/26/18 PT-OP-B Current Condition Start: 02/26/18 16:40 Freq: Status: Active Protocol: Document 02/26/18 14:30 AMB (Rec: 02/26/18 16:52 AMB [email or web address]) Current Condition History of Current Condition History of Current Condition The patient lives with her Juan R and was recently diagnosed with Parkinson's although she reports symptoms for years. She is retired and walks an hour a day. She has tremors in bilateral UEs and LEs worse on the left. Sinemet has been helpful for her symptoms. Prior Functional Status Baseline Function- ADL's Independent Baseline Function- Mobility Independent Current Functional Impairments (Reported) Functional Limitations- Mobility/Gait intermittent difficulty with floor transfers, difficulty washing dishes due to L hand stiffnesss, difficulty writing Personal Factors Other Personal Factors That May Effect History of L shoulder surgery. Therapy/Recovery Trigger finger on R hand. On and off history of vertigo over the past 25 years+, history of motion sensitivity. PT-OP-C Subjective Start: 02/26/18 16:40 Freq: Status: Active Protocol: Document 03/09/18 15:30 AMB (Rec: 03/09/18 16:06 AMB [id number]) OP-PT Subjective Patient Comments Patient Comments Pt interested in doing a small batch of lumpia. PT-OP-D Balance Start: 02/26/18 17:00 Freq: Status: Active Protocol: Document 02/26/18 14:30 AMB (Rec: 02/26/18 17:03 AMB [email or web address]) Balance Tests Single Limb Standing Single Limb- Right 7 seconds Single Limb- Left 9 seconds Semi-Tandem Standing Semi-Tandem Standing Balance with slow head turns, no increase in symptoms, slight ankle sway. Other Other Balance Tests Performed Semi tandem Eyes closed- increased ankle sway forward so that she had to open her eyes within 5 seconds. PT-OP-E Functional Tests Start: 02/26/18 16:40 Freq: Status: Active Protocol: Document 02/26/18 14:30 AMB (Rec: 02/26/18 16:59 AMB [email or web address]) Functional Tests 6 Minute Walk Test Distance 1145 feet Device Used none Comments average for age/gender:1765 feet Five Times Sit to Stand Test Score 8 seconds Comments without UE assist PT-OP-G Mobility & Gait Start: 02/26/18 16:40 Freq: Status: Active Protocol: Document 02/26/18 14:30 AMB (Rec: 02/26/18 16:59 AMB [email or web address]) OP Gait Assessment Comments Gait Comments Decreased arm swing bilaterally worse on the L. Forefoot strike bilaterally. Lack of trunk rotation. PT-OP-J Posture/Palpation/Skin Start: 02/26/18 16:40 Freq: Status: Active Protocol: Document 02/26/18 14:30 AMB (Rec: 02/26/18 17:03 AMB [email or web address]) Posture Evaluation Comments Posture Comments Mild increased thoracic kyphosis. PT-OP-K Range of Motion Start: 02/26/18 16:40 Freq: Status: Active Protocol: Document 02/26/18 14:30 AMB (Rec: 02/26/18 16:59 AMB [email or web address]) Shoulder Goniometric Range of Motion Shoulder Measured in Degrees Left Active Testing Position Supine Flexion 145 Abduction 140 Right Active Testing Position Supine Flexion 170 Abduction 160 PT-OP-M Strength Start: 02/26/18 16:40 Freq: Status: Active Protocol: Document 02/26/18 14:30 AMB (Rec: 02/26/18 16:59 AMB [email or web address]) Hand Retort Setter/Pinch Strength Hand Dominance Hand Dominance Left Hand Strength Right Retort Setter (lbs) 25 Left Retort Setter (lbs) 20 PT-OP-Q Treatments Start: 02/26/18 16:40 Freq: Status: Active Protocol: Document 03/09/18 15:30 AMB (Rec: 03/09/18 16:06 AMB [id number]) Therapeutic Exercises Supine Exercises 2 Supine Exercise Name hamstring stretch Reps/Minutes 30x2 Sidelying Exercises 1 Sidelying Exercise Name hip abduction Reps/Minutes 2x10 Sitting Exercises 2 Sitting Exercise Name Trunk rotation with forward shoulder reach Reps/Minutes 8 1 Sitting Exercise Name Forward flexion with shoulder horizontal abduction Reps/Minutes 8 Therapeutic Activity Therapeutic Activity 2 Name scissor usage Comments 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- practiced cutting paper 1 Name Rolling lumpia Comments with theraband, fine motor practice Neuro Re-Education Treatment Balance Activities 5 Details WBOS with trunk rotation Reps/Duration 12 Comments B UE reach 4 Details a/p weightshift in stride stance Reps/Duration 12 Comments B UE reach alternating 3 Details Backward stepping Reps/Duration 10 Comments B UE reach 2 Details Lateral stepping Reps/Duration 10 Comments B UE reach 1 Details Forward stepping Reps/Duration 10 Comments B UE reach PT-OP-T Assessment and Plan Start: 02/26/18 16:40 Freq: Status: Active Protocol: Document 03/09/18 15:15 AMB (Rec: 03/09/18 16:26 AMB [email or web address]) Physical Therapy Assessment Assessment Summary Assessment The patient did have difficulty with using the scissors safely, at this point may not be appropriate to cut her 's hair. Physical Therapy Plan Next Visit Focus/Plan Next Note Type Treatment Note Next Visit Plan Progress fine motor coordination
--- NOTE | 2018-03-12 15:44 | PT.OTN ---
Current Diagnoses Parkinson's disease (03/12/18) Physical Therapy Treatment Note PT-OP-A Visit Information Start: 02/26/18 16:40 Freq: Status: Active Protocol: Document 03/12/18 14:30 AMB (Rec: 03/12/18 14:30 AMB [email or web address]) Out-Patient Physical Therapy Visit Information Visit Information Visit Type Treatment Note Visit Start Time 14:30 Visit Stop Time 15:30 Total Visit Minutes 60 Visit Number 9 Evaluation Information Evaluation Date 02/26/18 PT-OP-B Current Condition Start: 02/26/18 16:40 Freq: Status: Active Protocol: Document 02/26/18 14:30 AMB (Rec: 02/26/18 16:52 AMB [email or web address]) Current Condition History of Current Condition History of Current Condition The patient lives with her Juan R and was recently diagnosed with Parkinson's although she reports symptoms for years. She is retired and walks an hour a day. She has tremors in bilateral UEs and LEs worse on the left. Sinemet has been helpful for her symptoms. Prior Functional Status Baseline Function- ADL's Independent Baseline Function- Mobility Independent Current Functional Impairments (Reported) Functional Limitations- Mobility/Gait intermittent difficulty with floor transfers, difficulty washing dishes due to L hand stiffnesss, difficulty writing Personal Factors Other Personal Factors That May Effect History of L shoulder surgery. Therapy/Recovery Trigger finger on R hand. On and off history of vertigo over the past 25 years+, history of motion sensitivity. PT-OP-C Subjective Start: 02/26/18 16:40 Freq: Status: Active Protocol: Document 03/12/18 14:30 AMB (Rec: 03/12/18 14:54 AMB [id number]) OP-PT Subjective Patient Comments Patient Comments The patient washed and vacuumed a car over the weekend so she is abit sore in her R forearm muscles. PT-OP-D Balance Start: 02/26/18 17:00 Freq: Status: Active Protocol: Document 02/26/18 14:30 AMB (Rec: 02/26/18 17:03 AMB [email or web address]) Balance Tests Single Limb Standing Single Limb- Right 7 seconds Single Limb- Left 9 seconds Semi-Tandem Standing Semi-Tandem Standing Balance with slow head turns, no increase in symptoms, slight ankle sway. Other Other Balance Tests Performed Semi tandem Eyes closed- increased ankle sway forward so that she had to open her eyes within 5 seconds. PT-OP-E Functional Tests Start: 02/26/18 16:40 Freq: Status: Active Protocol: Document 02/26/18 14:30 AMB (Rec: 02/26/18 16:59 AMB [email or web address]) Functional Tests 6 Minute Walk Test Distance 1145 feet Device Used none Comments average for age/gender:1765 feet Five Times Sit to Stand Test Score 8 seconds Comments without UE assist PT-OP-G Mobility & Gait Start: 02/26/18 16:40 Freq: Status: Active Protocol: Document 02/26/18 14:30 AMB (Rec: 02/26/18 16:59 AMB [email or web address]) OP Gait Assessment Comments Gait Comments Decreased arm swing bilaterally worse on the L. Forefoot strike bilaterally. Lack of trunk rotation. PT-OP-J Posture/Palpation/Skin Start: 02/26/18 16:40 Freq: Status: Active Protocol: Document 02/26/18 14:30 AMB (Rec: 02/26/18 17:03 AMB [email or web address]) Posture Evaluation Comments Posture Comments Mild increased thoracic kyphosis. PT-OP-K Range of Motion Start: 02/26/18 16:40 Freq: Status: Active Protocol: Document 02/26/18 14:30 AMB (Rec: 02/26/18 16:59 AMB [email or web address]) Shoulder Goniometric Range of Motion Shoulder Measured in Degrees Left Active Testing Position Supine Flexion 145 Abduction 140 Right Active Testing Position Supine Flexion 170 Abduction 160 PT-OP-M Strength Start: 02/26/18 16:40 Freq: Status: Active Protocol: Document 02/26/18 14:30 AMB (Rec: 02/26/18 16:59 AMB [email or web address]) Hand Head Lineman/Pinch Strength Hand Dominance Hand Dominance Left Hand Strength Right Head Lineman (lbs) 25 Left Head Lineman (lbs) 20 PT-OP-Q Treatments Start: 02/26/18 16:40 Freq: Status: Active Protocol: Document 03/12/18 14:30 AMB (Rec: 03/12/18 15:43 AMB [email or web address]) Gym Equipment Shuttle Balance 1 Details RED Reps/Duration 10 min Comments stride stance with eyes closed and then head turns Therapeutic Exercises Supine Exercises 2 Supine Exercise Name hamstring stretch Reps/Minutes 30x2 Sidelying Exercises 1 Sidelying Exercise Name hip abduction Reps/Minutes 2x10 Sitting Exercises 2 Sitting Exercise Name Trunk rotation with forward shoulder reach Reps/Minutes 8 1 Sitting Exercise Name Forward flexion with shoulder horizontal abduction Reps/Minutes 8 Standing Exercises 3 Standing Exercise Name calf stretch Reps/Minutes 30x2 2 Standing Exercise Name UE ext Resistance #2 t band Comments 2x10 1 Standing Exercise Name pec stretch Reps/Minutes 30x2 Comments doorway Neuro Re-Education Treatment Balance Activities 5 Details WBOS with trunk rotation Reps/Duration 12 Comments B UE reach 4 Details a/p weightshift in stride stance Reps/Duration 12 Comments B UE reach alternating 3 Details Backward stepping Reps/Duration 10 Comments B UE reach 2 Details Lateral stepping Reps/Duration 10 Comments B UE reach 1 Details Forward stepping Reps/Duration 10 Comments B UE reach PT-OP-T Assessment and Plan Start: 02/26/18 16:40 Freq: Status: Active Protocol: Document 03/12/18 14:30 AMB (Rec: 03/12/18 15:43 AMB [email or web address]) Physical Therapy Assessment Goals Four Impairment ADLs Short Term Goal (STG) 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 STG Duration 2 weeks Home Service Consultant Goal (LTG) The patient will improve her hand flexibility so that she can wash the inside of a water glass while washing dishes. LTG Duration 4 weeks Three Impairment Functional mobility Short Term Goal (STG) The patient will move from the floor to standing without environmental support. STG Duration 2 weeks Two Impairment Range of motion Short Term Goal (STG) The patient will increase her shoulder flexion AROM to 160 degrees to put dishes away in tall cabinets. STG Duration 2 weeks One Impairment Gait Short Term Goal (STG) The patient will show appropriate trunk rotation on her daily walks in the community. STG Duration 2 weeks Group Home Goal (LTG) The patient will improve her 6MWT to 1,325 feet (75% of normal for her gender/age). LTG Duration 4 weeks Assessment Summary Assessment The patient has slow finger coordination, but otherwise tolerated all exercises well. Physical Therapy Plan Next Visit Focus/Plan Next Note Type Treatment Note Next Visit Plan Progress balance and fine motor coordination
--- NOTE | 2018-03-14 15:55 | PT.OTN ---
Current Diagnoses Parkinson's disease (03/14/18) Physical Therapy Treatment Note PT-OP-A Visit Information Start: 02/26/18 16:40 Freq: Status: Active Protocol: Document 03/14/18 14:30 AMB (Rec: 03/14/18 15:51 AMB [email or web address]) Out-Patient Physical Therapy Visit Information Visit Information Visit Type Treatment Note Visit Note G codes today Visit Start Time 14:30 Visit Stop Time 15:30 Total Visit Minutes 60 Visit Number 10 Evaluation Information Evaluation Date 02/26/18 PT-OP-B Current Condition Start: 02/26/18 16:40 Freq: Status: Active Protocol: Document 02/26/18 14:30 AMB (Rec: 02/26/18 16:52 AMB [email or web address]) Current Condition History of Current Condition History of Current Condition The patient lives with her Juan R and was recently diagnosed with Parkinson's although she reports symptoms for years. She is retired and walks an hour a day. She has tremors in bilateral UEs and LEs worse on the left. Sinemet has been helpful for her symptoms. Prior Functional Status Baseline Function- ADL's Independent Baseline Function- Mobility Independent Current Functional Impairments (Reported) Functional Limitations- Mobility/Gait intermittent difficulty with floor transfers, difficulty washing dishes due to L hand stiffnesss, difficulty writing Personal Factors Other Personal Factors That May Effect History of L shoulder surgery. Therapy/Recovery Trigger finger on R hand. On and off history of vertigo over the past 25 years+, history of motion sensitivity. PT-OP-C Subjective Start: 02/26/18 16:40 Freq: Status: Active Protocol: Document 03/14/18 14:30 AMB (Rec: 03/14/18 15:51 AMB [email or web address]) OP-PT Subjective Patient Comments Patient Comments Pt continues to be concerned with her tremor. PT-OP-D Balance Start: 02/26/18 17:00 Freq: Status: Active Protocol: Document 02/26/18 14:30 AMB (Rec: 02/26/18 17:03 AMB [email or web address]) Balance Tests Single Limb Standing Single Limb- Right 7 seconds Single Limb- Left 9 seconds Semi-Tandem Standing Semi-Tandem Standing Balance with slow head turns, no increase in symptoms, slight ankle sway. Other Other Balance Tests Performed Semi tandem Eyes closed- increased ankle sway forward so that she had to open her eyes within 5 seconds. PT-OP-E Functional Tests Start: 02/26/18 16:40 Freq: Status: Active Protocol: Document 02/26/18 14:30 AMB (Rec: 02/26/18 16:59 AMB [email or web address]) Functional Tests 6 Minute Walk Test Distance 1145 feet Device Used none Comments average for age/gender:1765 feet Five Times Sit to Stand Test Score 8 seconds Comments without UE assist PT-OP-G Mobility & Gait Start: 02/26/18 16:40 Freq: Status: Active Protocol: Document 02/26/18 14:30 AMB (Rec: 02/26/18 16:59 AMB [email or web address]) OP Gait Assessment Comments Gait Comments Decreased arm swing bilaterally worse on the L. Forefoot strike bilaterally. Lack of trunk rotation. PT-OP-J Posture/Palpation/Skin Start: 02/26/18 16:40 Freq: Status: Active Protocol: Document 02/26/18 14:30 AMB (Rec: 02/26/18 17:03 AMB [email or web address]) Posture Evaluation Comments Posture Comments Mild increased thoracic kyphosis. PT-OP-K Range of Motion Start: 02/26/18 16:40 Freq: Status: Active Protocol: Document 02/26/18 14:30 AMB (Rec: 02/26/18 16:59 AMB [email or web address]) Shoulder Goniometric Range of Motion Shoulder Measured in Degrees Left Active Testing Position Supine Flexion 145 Abduction 140 Right Active Testing Position Supine Flexion 170 Abduction 160 PT-OP-M Strength Start: 02/26/18 16:40 Freq: Status: Active Protocol: Document 02/26/18 14:30 AMB (Rec: 02/26/18 16:59 AMB [email or web address]) Hand Tip Length Checker/Pinch Strength Hand Dominance Hand Dominance Left Hand Strength Right Tip Length Checker (lbs) 25 Left Tip Length Checker (lbs) 20 PT-OP-Q Treatments Start: 02/26/18 16:40 Freq: Status: Active Protocol: Document 03/14/18 14:30 AMB (Rec: 03/14/18 15:51 AMB [email or web address]) Therapeutic Exercises Supine Exercises 1 Supine Exercise Name piriformis stretch Reps/Minutes 30x2 2 Supine Exercise Name hamstring stretch Reps/Minutes 30x2 Sitting Exercises 2 Sitting Exercise Name Trunk rotation with forward shoulder reach Reps/Minutes 8 1 Sitting Exercise Name Forward flexion with shoulder horizontal abduction Reps/Minutes 8 Standing Exercises 4 Standing Exercise Name forearm AROM Side bilateral Resistance 3# Reps/Minutes 15 ea Comments wrist flex/ext, rad/unar deviation 3 Standing Exercise Name calf stretch Reps/Minutes 30x2 2 Standing Exercise Name UE ext Resistance #2 t band Comments 2x10 1 Standing Exercise Name pec stretch Reps/Minutes 30x2 Comments doorway Neuro Re-Education Treatment Balance Activities 6 Details SLS balloon batting 5 Details WBOS with trunk rotation Reps/Duration 12 Comments B UE reach 4 Details a/p weightshift in stride stance Reps/Duration 12 Comments B UE reach alternating 3 Details Backward stepping Reps/Duration 10 Comments B UE reach 2 Details Lateral stepping Reps/Duration 10 Comments B UE reach 1 Details Forward stepping Reps/Duration 10 Comments B UE reach PT-OP-T Assessment and Plan Start: 02/26/18 16:40 Freq: Status: Active Protocol: Document 03/14/18 14:30 AMB (Rec: 03/14/18 15:51 AMB [email or web address]) Physical Therapy Assessment Assessment Summary Assessment Shoulder stiffness is improving. Physical Therapy Plan Next Visit Focus/Plan Next Note Type Treatment Note Next Visit Plan Progress fine motor coordination
--- NOTE | 2018-03-15 13:12 | PT.OTN ---
Current Diagnoses Parkinson's disease (03/15/18) Physical Therapy Treatment Note PT-OP-A Visit Information Start: 02/26/18 16:40 Freq: Status: Active Protocol: Document 03/15/18 11:15 AMB (Rec: 03/15/18 13:10 AMB [email or web address]) Out-Patient Physical Therapy Visit Information Visit Information Visit Type Treatment Note Visit Start Time 14:30 Visit Stop Time 15:30 Total Visit Minutes 60 Visit Number 11 Evaluation Information Evaluation Date 02/26/18 PT-OP-B Current Condition Start: 02/26/18 16:40 Freq: Status: Active Protocol: Document 02/26/18 14:30 AMB (Rec: 02/26/18 16:52 AMB [email or web address]) Current Condition History of Current Condition History of Current Condition The patient lives with her Juan R and was recently diagnosed with Parkinson's although she reports symptoms for years. She is retired and walks an hour a day. She has tremors in bilateral UEs and LEs worse on the left. Sinemet has been helpful for her symptoms. Prior Functional Status Baseline Function- ADL's Independent Baseline Function- Mobility Independent Current Functional Impairments (Reported) Functional Limitations- Mobility/Gait intermittent difficulty with floor transfers, difficulty washing dishes due to L hand stiffnesss, difficulty writing Personal Factors Other Personal Factors That May Effect History of L shoulder surgery. Therapy/Recovery Trigger finger on R hand. On and off history of vertigo over the past 25 years+, history of motion sensitivity. PT-OP-C Subjective Start: 02/26/18 16:40 Freq: Status: Active Protocol: Document 03/15/18 11:15 AMB (Rec: 03/15/18 13:10 AMB [email or web address]) OP-PT Subjective Patient Comments Patient Comments Pt will be walking 2x today PT-OP-D Balance Start: 02/26/18 17:00 Freq: Status: Active Protocol: Document 02/26/18 14:30 AMB (Rec: 02/26/18 17:03 AMB [email or web address]) Balance Tests Single Limb Standing Single Limb- Right 7 seconds Single Limb- Left 9 seconds Semi-Tandem Standing Semi-Tandem Standing Balance with slow head turns, no increase in symptoms, slight ankle sway. Other Other Balance Tests Performed Semi tandem Eyes closed- increased ankle sway forward so that she had to open her eyes within 5 seconds. PT-OP-E Functional Tests Start: 02/26/18 16:40 Freq: Status: Active Protocol: Document 02/26/18 14:30 AMB (Rec: 02/26/18 16:59 AMB [email or web address]) Functional Tests 6 Minute Walk Test Distance 1145 feet Device Used none Comments average for age/gender:1765 feet Five Times Sit to Stand Test Score 8 seconds Comments without UE assist PT-OP-G Mobility & Gait Start: 02/26/18 16:40 Freq: Status: Active Protocol: Document 02/26/18 14:30 AMB (Rec: 02/26/18 16:59 AMB [email or web address]) OP Gait Assessment Comments Gait Comments Decreased arm swing bilaterally worse on the L. Forefoot strike bilaterally. Lack of trunk rotation. PT-OP-J Posture/Palpation/Skin Start: 02/26/18 16:40 Freq: Status: Active Protocol: Document 02/26/18 14:30 AMB (Rec: 02/26/18 17:03 AMB [email or web address]) Posture Evaluation Comments Posture Comments Mild increased thoracic kyphosis. PT-OP-K Range of Motion Start: 02/26/18 16:40 Freq: Status: Active Protocol: Document 02/26/18 14:30 AMB (Rec: 02/26/18 16:59 AMB [email or web address]) Shoulder Goniometric Range of Motion Shoulder Measured in Degrees Left Active Testing Position Supine Flexion 145 Abduction 140 Right Active Testing Position Supine Flexion 170 Abduction 160 PT-OP-M Strength Start: 02/26/18 16:40 Freq: Status: Active Protocol: Document 02/26/18 14:30 AMB (Rec: 02/26/18 16:59 AMB [email or web address]) Hand Livestock Nutrition Territory Manager/Pinch Strength Hand Dominance Hand Dominance Left Hand Strength Right Livestock Nutrition Territory Manager (lbs) 25 Left Livestock Nutrition Territory Manager (lbs) 20 PT-OP-Q Treatments Start: 02/26/18 16:40 Freq: Status: Active Protocol: Document 03/15/18 11:15 AMB (Rec: 03/15/18 13:10 AMB [email or web address]) Gym Equipment Shuttle Balance 1 Details RED Reps/Duration 10 min Comments stride stance with eyes closed and then head turns, then with perturbations Therapeutic Exercises Supine Exercises 2 Supine Exercise Name hamstring stretch Reps/Minutes 30x2 Sitting Exercises 2 Sitting Exercise Name Trunk rotation with forward shoulder reach Reps/Minutes 8 1 Sitting Exercise Name Forward flexion with shoulder horizontal abduction Reps/Minutes 8 Standing Exercises 4 Standing Exercise Name forearm AROM Side bilateral Resistance 3# Reps/Minutes 15 ea Comments wrist flex/ext, rad/unar deviation 3 Standing Exercise Name calf stretch Reps/Minutes 30x2 2 Standing Exercise Name UE ext Resistance #2 t band Comments 2x10 1 Standing Exercise Name pec stretch Reps/Minutes 30x2 Comments doorway Neuro Re-Education Treatment Balance Activities 5 Details WBOS with trunk rotation Reps/Duration 12 Comments B UE reach 4 Details a/p weightshift in stride stance Reps/Duration 12 Comments B UE reach alternating 3 Details Backward stepping Reps/Duration 10 Comments B UE reach 2 Details Lateral stepping Reps/Duration 10 Comments B UE reach 1 Details Forward stepping Reps/Duration 10 Comments B UE reach PT-OP-T Assessment and Plan Start: 02/26/18 16:40 Freq: Status: Active Protocol: Document 03/15/18 11:15 AMB (Rec: 03/15/18 13:10 AMB [email or web address]) Physical Therapy Assessment Assessment Summary Assessment Pt continues to have right elbow pain, reinforced icing and bracing. Physical Therapy Plan Next Visit Focus/Plan Next Note Type Treatment Note Next Visit Plan Reassess elbow pain
--- NOTE | 2018-03-16 15:53 | PT.OTN ---
Current Diagnoses Parkinson's disease (03/16/18) Physical Therapy Treatment Note PT-OP-A Visit Information Start: 02/26/18 16:40 Freq: Status: Active Protocol: Document 03/16/18 14:30 AMB (Rec: 03/16/18 14:32 AMB [id number]) Out-Patient Physical Therapy Visit Information Visit Information Visit Type Treatment Note Visit Start Time 14:30 Visit Stop Time 15:30 Total Visit Minutes 60 Visit Number 12 Evaluation Information Evaluation Date 02/26/18 PT-OP-B Current Condition Start: 02/26/18 16:40 Freq: Status: Active Protocol: Document 02/26/18 14:30 AMB (Rec: 02/26/18 16:52 AMB [email or web address]) Current Condition History of Current Condition History of Current Condition The patient lives with her Juan R and was recently diagnosed with Parkinson's although she reports symptoms for years. She is retired and walks an hour a day. She has tremors in bilateral UEs and LEs worse on the left. Sinemet has been helpful for her symptoms. Prior Functional Status Baseline Function- ADL's Independent Baseline Function- Mobility Independent Current Functional Impairments (Reported) Functional Limitations- Mobility/Gait intermittent difficulty with floor transfers, difficulty washing dishes due to L hand stiffnesss, difficulty writing Personal Factors Other Personal Factors That May Effect History of L shoulder surgery. Therapy/Recovery Trigger finger on R hand. On and off history of vertigo over the past 25 years+, history of motion sensitivity. PT-OP-C Subjective Start: 02/26/18 16:40 Freq: Status: Active Protocol: Document 03/16/18 14:30 AMB (Rec: 03/16/18 15:51 AMB [email or web address]) OP-PT Subjective Patient Comments Patient Comments The patient reports she is tired today, she is worried about driving in [place] traffic and that kept her up last night. PT-OP-D Balance Start: 02/26/18 17:00 Freq: Status: Active Protocol: Document 02/26/18 14:30 AMB (Rec: 02/26/18 17:03 AMB [email or web address]) Balance Tests Single Limb Standing Single Limb- Right 7 seconds Single Limb- Left 9 seconds Semi-Tandem Standing Semi-Tandem Standing Balance with slow head turns, no increase in symptoms, slight ankle sway. Other Other Balance Tests Performed Semi tandem Eyes closed- increased ankle sway forward so that she had to open her eyes within 5 seconds. PT-OP-E Functional Tests Start: 02/26/18 16:40 Freq: Status: Active Protocol: Document 02/26/18 14:30 AMB (Rec: 02/26/18 16:59 AMB [email or web address]) Functional Tests 6 Minute Walk Test Distance 1145 feet Device Used none Comments average for age/gender:1765 feet Five Times Sit to Stand Test Score 8 seconds Comments without UE assist PT-OP-G Mobility & Gait Start: 02/26/18 16:40 Freq: Status: Active Protocol: Document 02/26/18 14:30 AMB (Rec: 02/26/18 16:59 AMB [email or web address]) OP Gait Assessment Comments Gait Comments Decreased arm swing bilaterally worse on the L. Forefoot strike bilaterally. Lack of trunk rotation. PT-OP-J Posture/Palpation/Skin Start: 02/26/18 16:40 Freq: Status: Active Protocol: Document 02/26/18 14:30 AMB (Rec: 02/26/18 17:03 AMB [email or web address]) Posture Evaluation Comments Posture Comments Mild increased thoracic kyphosis. PT-OP-K Range of Motion Start: 02/26/18 16:40 Freq: Status: Active Protocol: Document 02/26/18 14:30 AMB (Rec: 02/26/18 16:59 AMB [email or web address]) Shoulder Goniometric Range of Motion Shoulder Measured in Degrees Left Active Testing Position Supine Flexion 145 Abduction 140 Right Active Testing Position Supine Flexion 170 Abduction 160 PT-OP-M Strength Start: 02/26/18 16:40 Freq: Status: Active Protocol: Document 02/26/18 14:30 AMB (Rec: 02/26/18 16:59 AMB [email or web address]) Hand Lining Marker/Pinch Strength Hand Dominance Hand Dominance Left Hand Strength Right Lining Marker (lbs) 25 Left Lining Marker (lbs) 20 PT-OP-Q Treatments Start: 02/26/18 16:40 Freq: Status: Active Protocol: Document 03/16/18 14:30 AMB (Rec: 03/16/18 15:51 AMB [email or web address]) Therapeutic Exercises Supine Exercises 3 Supine Exercise Name IT band stretch Reps/Minutes 30x2 1 Supine Exercise Name piriformis stretch Reps/Minutes 30x2 2 Supine Exercise Name hamstring stretch Reps/Minutes 30x2 Sidelying Exercises 1 Sidelying Exercise Name hip abduction Reps/Minutes 2x10 Sitting Exercises 2 Sitting Exercise Name Trunk rotation with forward shoulder reach Reps/Minutes 8 1 Sitting Exercise Name Forward flexion with shoulder horizontal abduction Reps/Minutes 8 Standing Exercises 3 Standing Exercise Name calf stretch Reps/Minutes 30x2 2 Standing Exercise Name UE ext Resistance #2 t band Comments 2x10 1 Standing Exercise Name pec stretch Reps/Minutes 30x2 Comments doorway Neuro Re-Education Treatment Balance Activities 5 Details WBOS with trunk rotation Reps/Duration 12 Comments B UE reach 4 Details a/p weightshift in stride stance Reps/Duration 12 Comments B UE reach alternating 3 Details Backward stepping Reps/Duration 10 Comments B UE reach 2 Details Lateral stepping Reps/Duration 10 Comments B UE reach 1 Details Forward stepping Reps/Duration 10 Comments B UE reach PT-OP-T Assessment and Plan Start: 02/26/18 16:40 Freq: Status: Active Protocol: Document 03/16/18 14:30 AMB (Rec: 03/16/18 15:51 AMB [email or web address]) Physical Therapy Assessment Goals Four Impairment ADLs Short Term Goal (STG) The patient will improve her supervisor mattress and boxsprings strength to 35# bilaterally. STG Duration 2 weeks Cane Weigher Helper Goal (LTG) The patient will improve her hand flexibility so that she can wash the inside of a water glass while washing dishes. LTG Duration 4 weeks Three Impairment Functional mobility Short Term Goal (STG) The patient will move from the floor to standing without environmental support. STG Duration 2 weeks Two Impairment Range of motion Short Term Goal (STG) The patient will increase her shoulder flexion AROM to 160 degrees to put dishes away in tall cabinets. STG Duration 2 weeks One Impairment Gait Short Term Goal (STG) The patient will show appropriate trunk rotation on her daily walks in the community. STG Duration 2 weeks Cane Weigher Helper Goal (LTG) The patient will improve her 6MWT to 1,325 feet (75% of normal for her gender/age). LTG Duration 4 weeks Assessment Summary Assessment The patient reports her shaking is worse today, because she is tired. Physical Therapy Plan Next Visit Focus/Plan Next Note Type Treatment Note Next Visit Plan Progress dynamic balance.
--- NOTE | 2018-03-20 16:40 | PT.OTN ---
Current Diagnoses Parkinson's disease (03/20/18) Physical Therapy Treatment Note PT-OP-A Visit Information Start: 02/26/18 16:40 Freq: Status: Active Protocol: Document 03/20/18 14:30 AMB (Rec: 03/20/18 16:39 AMB [email or web address]) Out-Patient Physical Therapy Visit Information Visit Information Visit Type Treatment Note Visit Start Time 14:30 Visit Stop Time 15:30 Total Visit Minutes 60 Visit Number 13 Evaluation Information Evaluation Date 02/26/18 PT-OP-B Current Condition Start: 02/26/18 16:40 Freq: Status: Active Protocol: Document 02/26/18 14:30 AMB (Rec: 02/26/18 16:52 AMB [email or web address]) Current Condition History of Current Condition History of Current Condition The patient lives with her Juan R and was recently diagnosed with Parkinson's although she reports symptoms for years. She is retired and walks an hour a day. She has tremors in bilateral UEs and LEs worse on the left. Sinemet has been helpful for her symptoms. Prior Functional Status Baseline Function- ADL's Independent Baseline Function- Mobility Independent Current Functional Impairments (Reported) Functional Limitations- Mobility/Gait intermittent difficulty with floor transfers, difficulty washing dishes due to L hand stiffnesss, difficulty writing Personal Factors Other Personal Factors That May Effect History of L shoulder surgery. Therapy/Recovery Trigger finger on R hand. On and off history of vertigo over the past 25 years+, history of motion sensitivity. PT-OP-C Subjective Start: 02/26/18 16:40 Freq: Status: Active Protocol: Document 03/20/18 14:30 AMB (Rec: 03/20/18 16:39 AMB [email or web address]) OP-PT Subjective Patient Comments Patient Comments Pt continues to be tired. She is noticing L hip pain ( lateral with walking) that is new onset. PT-OP-D Balance Start: 02/26/18 17:00 Freq: Status: Active Protocol: Document 02/26/18 14:30 AMB (Rec: 02/26/18 17:03 AMB [email or web address]) Balance Tests Single Limb Standing Single Limb- Right 7 seconds Single Limb- Left 9 seconds Semi-Tandem Standing Semi-Tandem Standing Balance with slow head turns, no increase in symptoms, slight ankle sway. Other Other Balance Tests Performed Semi tandem Eyes closed- increased ankle sway forward so that she had to open her eyes within 5 seconds. PT-OP-E Functional Tests Start: 02/26/18 16:40 Freq: Status: Active Protocol: Document 02/26/18 14:30 AMB (Rec: 02/26/18 16:59 AMB [email or web address]) Functional Tests 6 Minute Walk Test Distance 1145 feet Device Used none Comments average for age/gender:1765 feet Five Times Sit to Stand Test Score 8 seconds Comments without UE assist PT-OP-G Mobility & Gait Start: 02/26/18 16:40 Freq: Status: Active Protocol: Document 02/26/18 14:30 AMB (Rec: 02/26/18 16:59 AMB [email or web address]) OP Gait Assessment Comments Gait Comments Decreased arm swing bilaterally worse on the L. Forefoot strike bilaterally. Lack of trunk rotation. PT-OP-J Posture/Palpation/Skin Start: 02/26/18 16:40 Freq: Status: Active Protocol: Document 02/26/18 14:30 AMB (Rec: 02/26/18 17:03 AMB [email or web address]) Posture Evaluation Comments Posture Comments Mild increased thoracic kyphosis. PT-OP-K Range of Motion Start: 02/26/18 16:40 Freq: Status: Active Protocol: Document 02/26/18 14:30 AMB (Rec: 02/26/18 16:59 AMB [email or web address]) Shoulder Goniometric Range of Motion Shoulder Measured in Degrees Left Active Testing Position Supine Flexion 145 Abduction 140 Right Active Testing Position Supine Flexion 170 Abduction 160 PT-OP-M Strength Start: 02/26/18 16:40 Freq: Status: Active Protocol: Document 02/26/18 14:30 AMB (Rec: 02/26/18 16:59 AMB [email or web address]) Hand Child And Youth Program Assistant/Pinch Strength Hand Dominance Hand Dominance Left Hand Strength Right Child And Youth Program Assistant (lbs) 25 Left Child And Youth Program Assistant (lbs) 20 PT-OP-Q Treatments Start: 02/26/18 16:40 Freq: Status: Active Protocol: Document 03/20/18 14:30 AMB (Rec: 03/20/18 16:39 AMB [email or web address]) Therapeutic Exercises Supine Exercises 3 Supine Exercise Name IT band stretch Reps/Minutes 30x2 1 Supine Exercise Name piriformis stretch Reps/Minutes 30x2 Sitting Exercises 2 Sitting Exercise Name Trunk rotation with forward shoulder reach Reps/Minutes 8 1 Sitting Exercise Name Forward flexion with shoulder horizontal abduction Reps/Minutes 8 Standing Exercises 3 Standing Exercise Name calf stretch Reps/Minutes 30x2 2 Standing Exercise Name UE ext Resistance #2 t band Comments 2x10 1 Standing Exercise Name pec stretch Reps/Minutes 30x2 Comments doorway Neuro Re-Education Treatment Balance Activities 5 Details WBOS with trunk rotation Reps/Duration 12 Comments B UE reach 4 Details a/p weightshift in stride stance Reps/Duration 12 Comments B UE reach alternating 3 Details Backward stepping Reps/Duration 10 Comments B UE reach 2 Details Lateral stepping Reps/Duration 10 Comments B UE reach 1 Details Forward stepping Reps/Duration 10 Comments B UE reach PT-OP-T Assessment and Plan Start: 02/26/18 16:40 Freq: Status: Active Protocol: Document 03/20/18 14:30 AMB (Rec: 03/20/18 16:39 AMB [email or web address]) Physical Therapy Assessment Assessment Summary Assessment Discussed stress and fatigue's role in changing function. Reassess objective measures next visit. Physical Therapy Plan Next Visit Focus/Plan Next Note Type Treatment Note Next Visit Plan Reassess hip pain
--- NOTE | 2018-03-21 15:53 | PT.OTN ---
Current Diagnoses Parkinson's disease (03/21/18) Physical Therapy Treatment Note PT-OP-A Visit Information Start: 02/26/18 16:40 Freq: Status: Active Protocol: Document 03/21/18 14:30 AMB (Rec: 03/21/18 15:13 AMB [id number]) Out-Patient Physical Therapy Visit Information Visit Information Visit Type Treatment Note Visit Start Time 14:30 Visit Stop Time 15:30 Total Visit Minutes 60 Visit Number 14 Evaluation Information Evaluation Date 02/26/18 PT-OP-B Current Condition Start: 02/26/18 16:40 Freq: Status: Active Protocol: Document 02/26/18 14:30 AMB (Rec: 02/26/18 16:52 AMB [email or web address]) Current Condition History of Current Condition History of Current Condition The patient lives with her Juan R and was recently diagnosed with Parkinson's although she reports symptoms for years. She is retired and walks an hour a day. She has tremors in bilateral UEs and LEs worse on the left. Sinemet has been helpful for her symptoms. Prior Functional Status Baseline Function- ADL's Independent Baseline Function- Mobility Independent Current Functional Impairments (Reported) Functional Limitations- Mobility/Gait intermittent difficulty with floor transfers, difficulty washing dishes due to L hand stiffnesss, difficulty writing Personal Factors Other Personal Factors That May Effect History of L shoulder surgery. Therapy/Recovery Trigger finger on R hand. On and off history of vertigo over the past 25 years+, history of motion sensitivity. PT-OP-C Subjective Start: 02/26/18 16:40 Freq: Status: Active Protocol: Document 03/21/18 14:30 AMB (Rec: 03/21/18 15:13 AMB [id number]) OP-PT Subjective Patient Comments Patient Comments Pt felt that icing the lateral hip helped after her walk yesterday. PT-OP-D Balance Start: 02/26/18 17:00 Freq: Status: Active Protocol: Document 03/21/18 15:19 AMB (Rec: 03/21/18 15:22 AMB [id number]) Balance Tests Single Limb Standing Single Limb- Right 10 seconds Single Limb- Left 10 seconds Other Other Balance Tests Performed eyes closed stride stance 15 seconds + PT-OP-E Functional Tests Start: 02/26/18 16:40 Freq: Status: Active Protocol: Document 03/21/18 14:30 AMB (Rec: 03/21/18 14:59 AMB [id number]) Functional Tests 6 Minute Walk Test Distance 1383 Five Times Sit to Stand Test Score 5 seconds PT-OP-G Mobility & Gait Start: 02/26/18 16:40 Freq: Status: Active Protocol: Document 02/26/18 14:30 AMB (Rec: 02/26/18 16:59 AMB [email or web address]) OP Gait Assessment Comments Gait Comments Decreased arm swing bilaterally worse on the L. Forefoot strike bilaterally. Lack of trunk rotation. PT-OP-J Posture/Palpation/Skin Start: 02/26/18 16:40 Freq: Status: Active Protocol: Document 02/26/18 14:30 AMB (Rec: 02/26/18 17:03 AMB [email or web address]) Posture Evaluation Comments Posture Comments Mild increased thoracic kyphosis. PT-OP-K Range of Motion Start: 02/26/18 16:40 Freq: Status: Active Protocol: Document 03/21/18 15:17 AMB (Rec: 03/21/18 15:19 AMB [id number]) Shoulder Goniometric Range of Motion Shoulder Measured in Degrees Left Active Flexion 165 Abduction 140 PT-OP-M Strength Start: 02/26/18 16:40 Freq: Status: Active Protocol: Document 02/26/18 14:30 AMB (Rec: 02/26/18 16:59 AMB [email or web address]) Hand Population Geneticist/Pinch Strength Hand Dominance Hand Dominance Left Hand Strength Right Population Geneticist (lbs) 25 Left Population Geneticist (lbs) 20 PT-OP-Q Treatments Start: 02/26/18 16:40 Freq: Status: Active Protocol: Document 03/21/18 14:30 AMB (Rec: 03/21/18 15:53 AMB [email or web address]) Therapeutic Exercises Supine Exercises 2 Supine Exercise Name hamstring stretch Reps/Minutes 30x2 Sitting Exercises 2 Sitting Exercise Name Trunk rotation with forward shoulder reach Reps/Minutes 8 1 Sitting Exercise Name Forward flexion with shoulder horizontal abduction Reps/Minutes 8 Standing Exercises 3 Standing Exercise Name calf stretch Reps/Minutes 30x2 2 Standing Exercise Name UE ext Resistance #2 t band Comments 2x10 1 Standing Exercise Name pec stretch Reps/Minutes 30x2 Comments doorway Neuro Re-Education Treatment Balance Activities 5 Details WBOS with trunk rotation Reps/Duration 12 Comments B UE reach 4 Details a/p weightshift in stride stance Reps/Duration 12 Comments B UE reach alternating 3 Details Backward stepping Reps/Duration 10 Comments B UE reach 2 Details Lateral stepping Reps/Duration 10 Comments B UE reach 1 Details Forward stepping Reps/Duration 10 Comments B UE reach PT-OP-T Assessment and Plan Start: 02/26/18 16:40 Freq: Status: Active Protocol: Document 03/21/18 14:30 AMB (Rec: 03/21/18 15:45 AMB [email or web address]) Physical Therapy Assessment Goals Four Impairment ADLs Short Term Goal (STG) The patient will improve her log roper strength to 35# bilaterally. STG Duration 2 weeks Fci Goal (LTG) The patient will improve her hand flexibility so that she can wash the inside of a water glass while washing dishes. LTG Duration 4 weeks Three Impairment Functional mobility Short Term Goal (STG) The patient will move from the floor to standing without environmental support. STG Duration 2 weeks Two Impairment Range of motion Short Term Goal (STG) The patient will increase her shoulder flexion AROM to 160 degrees to put dishes away in tall cabinets. STG Duration 2 weeks One Impairment Gait Short Term Goal (STG) The patient will show appropriate trunk rotation on her daily walks in the community. STG Duration 2 weeks Patient Account Specialist Goal (LTG) The patient will improve her 6MWT to 1,325 feet (75% of normal for her gender/age). LTG Duration 4 weeks Assessment Summary Assessment The patient is showing good improvement with gait and balance. Physical Therapy Plan Next Visit Focus/Plan Next Note Type Discharge Summary
--- NOTE | 2018-03-22 15:55 | PT.OTN ---
Current Diagnoses Parkinson's disease (03/22/18) Physical Therapy Treatment Note PT-OP-A Visit Information Start: 02/26/18 16:40 Freq: Status: Active Protocol: Document 03/22/18 14:30 AMB (Rec: 03/22/18 14:30 AMB [id number]) Out-Patient Physical Therapy Visit Information Visit Information Visit Type Discharge Summary Visit Start Time 14:30 Visit Stop Time 15:30 Total Visit Minutes 60 Visit Number 15 Evaluation Information Evaluation Date 02/26/18 PT-OP-B Current Condition Start: 02/26/18 16:40 Freq: Status: Active Protocol: Document 02/26/18 14:30 AMB (Rec: 02/26/18 16:52 AMB [email or web address]) Current Condition History of Current Condition History of Current Condition The patient lives with her Juan R and was recently diagnosed with Parkinson's although she reports symptoms for years. She is retired and walks an hour a day. She has tremors in bilateral UEs and LEs worse on the left. Sinemet has been helpful for her symptoms. Prior Functional Status Baseline Function- ADL's Independent Baseline Function- Mobility Independent Current Functional Impairments (Reported) Functional Limitations- Mobility/Gait intermittent difficulty with floor transfers, difficulty washing dishes due to L hand stiffnesss, difficulty writing Personal Factors Other Personal Factors That May Effect History of L shoulder surgery. Therapy/Recovery Trigger finger on R hand. On and off history of vertigo over the past 25 years+, history of motion sensitivity. PT-OP-C Subjective Start: 02/26/18 16:40 Freq: Status: Active Protocol: Document 03/22/18 14:30 AMB (Rec: 03/22/18 15:53 AMB [email or web address]) OP-PT Subjective Patient Comments Patient Comments The patient states her hip did not hurt yesterday with her walk. PT-OP-D Balance Start: 02/26/18 17:00 Freq: Status: Active Protocol: Document 03/21/18 15:19 AMB (Rec: 03/21/18 15:22 AMB [id number]) Balance Tests Single Limb Standing Single Limb- Right 10 seconds Single Limb- Left 10 seconds Other Other Balance Tests Performed eyes closed stride stance 15 seconds + PT-OP-E Functional Tests Start: 02/26/18 16:40 Freq: Status: Active Protocol: Document 03/21/18 14:30 AMB (Rec: 03/21/18 14:59 AMB [id number]) Functional Tests 6 Minute Walk Test Distance 1383 Five Times Sit to Stand Test Score 5 seconds PT-OP-G Mobility & Gait Start: 02/26/18 16:40 Freq: Status: Active Protocol: Document 02/26/18 14:30 AMB (Rec: 02/26/18 16:59 AMB [email or web address]) OP Gait Assessment Comments Gait Comments Decreased arm swing bilaterally worse on the L. Forefoot strike bilaterally. Lack of trunk rotation. PT-OP-J Posture/Palpation/Skin Start: 02/26/18 16:40 Freq: Status: Active Protocol: Document 02/26/18 14:30 AMB (Rec: 02/26/18 17:03 AMB [email or web address]) Posture Evaluation Comments Posture Comments Mild increased thoracic kyphosis. PT-OP-K Range of Motion Start: 02/26/18 16:40 Freq: Status: Active Protocol: Document 03/21/18 15:17 AMB (Rec: 03/21/18 15:19 AMB [id number]) Shoulder Goniometric Range of Motion Shoulder Measured in Degrees Left Active Flexion 165 Abduction 140 PT-OP-M Strength Start: 02/26/18 16:40 Freq: Status: Active Protocol: Document 03/22/18 14:30 AMB (Rec: 03/22/18 14:38 AMB [id number]) Hand Professor Of Communication/Pinch Strength Hand Strength Right Professor Of Communication (lbs) 30 Left Professor Of Communication (lbs) 35 PT-OP-Q Treatments Start: 02/26/18 16:40 Freq: Status: Active Protocol: Document 03/22/18 14:30 AMB (Rec: 03/22/18 15:53 AMB [email or web address]) Therapeutic Exercises Supine Exercises 2 Supine Exercise Name hamstring stretch Reps/Minutes 30x2 Sitting Exercises 2 Sitting Exercise Name Trunk rotation with forward shoulder reach Reps/Minutes 8 1 Sitting Exercise Name Forward flexion with shoulder horizontal abduction Reps/Minutes 8 Standing Exercises 3 Standing Exercise Name calf stretch Reps/Minutes 30x2 2 Standing Exercise Name UE ext Resistance #2 t band Comments 2x10 1 Standing Exercise Name pec stretch Reps/Minutes 30x2 Comments doorway Neuro Re-Education Treatment Balance Activities 5 Details WBOS with trunk rotation Reps/Duration 12 Comments B UE reach 4 Details a/p weightshift in stride stance Reps/Duration 12 Comments B UE reach alternating 3 Details Backward stepping Reps/Duration 10 Comments B UE reach 2 Details Lateral stepping Reps/Duration 10 Comments B UE reach 1 Details Forward stepping Reps/Duration 10 Comments B UE reach PT-OP-T Assessment and Plan Start: 02/26/18 16:40 Freq: Status: Active Protocol: Document 03/22/18 14:30 AMB (Rec: 03/22/18 15:53 AMB [email or web address]) Physical Therapy Assessment Goals Four Impairment ADLs Short Term Goal (STG) The patient will improve her structural steel fitter strength to 35# bilaterally. PARTIALLY MET- MET on left, but not right STG Duration 2 weeks Intermediate Goal (LTG) The patient will improve her hand flexibility so that she can wash the inside of a water glass while washing dishes. PARTIALLY MET- the pt continues to have to modify how she does this LTG Duration 4 weeks Three Impairment Functional mobility Short Term Goal (STG) The patient will move from the floor to standing without environmental support. MET STG Duration 2 weeks Two Impairment Range of motion Short Term Goal (STG) The patient will increase her shoulder flexion AROM to 160 degrees to put dishes away in tall cabinets. MET STG Duration 2 weeks One Impairment Gait Short Term Goal (STG) The patient will show appropriate trunk rotation on her daily walks in the community. MET STG Duration 2 weeks Vamp Maker Goal (LTG) The patient will improve her 6MWT to 1,325 feet (75% of normal for her gender/age). MET LTG Duration 4 weeks Assessment Summary Assessment The patient has shown good improvement in structural steel fitter strength, shoulder range of motion, and gait speed. She continues to have tremors (worse with fatigue/ nervous) and this makes some of her fine motor tasks more difficult (she has given up cutting her husbands hair). Overall she is doing well, and has shown excellent consistency with her home exercise program. Physical Therapy Plan Discharge Physical Therapy Discharge Reasons Goals Met Discharge Comments Finished [facility] program
== END 2018-03-29 14:21 ==
LOC: PHYS 14:30
PROVIDERS: PCP Nurse Practitioner Family; Visit Provider Psychiatry & Neurology Neurology
DX: G20 Parkinson's disease (principal)
CPT/HCPCS: 97110; 97112; 97116; 97162; 97530

== ENCOUNTER → 2022-02-03 14:48 | Outpatient (CLI) | payer MEDICARE, OTHER, SELFPAY | PROVIDERS: PCP Physician Assistant; Referring Provider Physician Assistant; Visit Provider Physician Assistant | DX: Z13.820 Encounter for screening for osteoporosis; M81.0 Age-related osteoporosis without current pathological fracture; Z78.0 Asymptomatic menopausal state | CPT/HCPCS: 77080 ==

== ENCOUNTER → 2022-02-07 13:37 | Outpatient (CLI) | payer MEDICARE, OTHER, SELFPAY ==
--- NOTE | 2022-02-07 | DI.MRI.S_ITS ---
PROCEDURE: MR LUMBAR SPINE WO CON INDICATIONS: Low back pain TECHNIQUE: Noncontrast sagittal T1 spin echo and T2 fast echo, sagittal STIR, and T2 fast spin echo through the lumbar spine. In cases with scoliosis, additional coronal T2 fast spin echo may be performed. COMPARISON: None. FINDINGS: Image quality: Excellent. Alignment and Curvature: No plain films are available for comparison, for numbering purposes. Thus, for the purposes of this examination, 5 lumbar type vertebral bodies will be presumed, as denoted on the montage panel. This should be confirmed and correlated with plain films, prior to any lumbar spinal intervention. Roughly 2 mm of anterolisthesis of L4 on L5 is present. Bone Marrow: Marrow is of normal overall signal. No acute vertebral body compression fractures. There is mild reactive signal throughout the endplates of the lumbar and lower thoracic spine. Spinal Cord: Conus medullaris terminates at the T12 level. Visualized cord demonstrates normal signal and size. Paraspinous Soft Tissues: No paravertebral masses. Bilateral renal cysts are present. T12-L1: Mild disc desiccation and diffuse disc bulge. Mild bilateral facet hypertrophy. Mild canal stenosis. Mild bilateral foraminal stenosis. L1-L2: Mild disc desiccation and diffuse disc bulge. Mild facet and ligamentum flavum hypertrophy. Mild epidural lipomatosis. Mild canal stenosis. No foraminal stenosis. L2-L3: Mild disc desiccation and diffuse disc bulge. Mild bilateral facet hypertrophy. Mild canal stenosis. Mild bilateral foraminal stenosis. L3-L4: Mild disc desiccation and diffuse disc bulge. Mild facet and ligamentum flavum hypertrophy. Mild epidural lipomatosis. Mild canal stenosis. Mild bilateral foraminal stenosis. L4-L5: Mild disc desiccation and diffuse disc bulge. Mild facet and ligamentum flavum hypertrophy. Mild epidural lipomatosis. Moderate canal stenosis. Moderate left and mild right foraminal stenosis. L5-S1: Mild disc desiccation and diffuse disc bulge. Mild facet hypertrophy bilaterally. Moderate epidural lipomatosis. Mild canal stenosis. Mild bilateral foraminal stenosis. IMPRESSION: 1. Multilevel degenerative disc and facet disease, as well as ligamentum flavum hypertrophy and epidural lipomatosis. 2. Multilevel canal stenoses, worst at L4-L5 where there is moderate canal stenosis. 3. Multilevel foraminal stenoses, worst at L4-L5 where there is moderate foraminal stenosis. 4. 5 lumbar type vertebral bodies were presumed for the current report. Plain films of the lumbar spine are recommended for confirmation, prior to any lumbar spinal intervention. Dictated by: Rosario Brown M.D. on 02/07/2022 at 14:41 Approved by: Rosario Brown M.D. on 02/07/2022 at 16:50
== END ==
PROVIDERS: PCP Physician Assistant; Referring Provider Physician Assistant; Visit Provider Physician Assistant
DX: M51.36 Other intervertebral disc degeneration, lumbar region (principal); M48.061 Spinal stenosis, lumbar region without neurogenic claudication; M51.37 Other intervertebral disc degeneration, lumbosacral region; M48.07 Spinal stenosis, lumbosacral region; M54.50 Low back pain, unspecified
CPT/HCPCS: 72148

== ENCOUNTER → 2022-05-26 15:07 | Outpatient (CLI) | payer MEDICARE, OTHER, SELFPAY | PROVIDERS: PCP Physician Assistant; Visit Provider Urology | DX: N32.81 Overactive bladder (principal); R31.29 Other microscopic hematuria; R82.81 Pyuria; Z86.69 Personal history of other diseases of the nervous system and sense organs | CPT/HCPCS: 51798; 81002; 87086; 99214 ==

== ENCOUNTER 2022-11-15 13:45 | Outpatient (RCR) | payer MEDICARE, OTHER, SELFPAY ==
--- NOTE | 2022-05-17 21:36 | PT.OPPOC ---
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) Spinal stenosis, lumbar region without neurogenic claudication (05/17/22) Trochanteric bursitis, right hip (05/17/22) Visit Care Team Role Provider Type Rocio Camarillo PA-C Primary Care Provider Non-Staff Specialty: [facility] Address: [address] [place] [address], [id number] Email: [email or web address] Attending Provider Physician Referring Provider Specialty: Orthopedics Orthopedic Surgery [facility] Address: [address] [place] [address], [address] Email: [email or web address] Plan Of Care PT-OP-T Assessment and Plan Start: 05/16/22 19:55 Freq: Status: Active Protocol: Document 05/17/22 13:45 AMB (Rec: 05/21/22 21:33 AMB [id number]) Physical Therapy Assessment Evaluation Complexity Number of Body Systems Impaired 3 Clinical Presentation at Evaluation Evolving Impairments Impairments Activity Tolerance,Balance, Functional Activities, Functional Mobility,Gait,Pain, Posture,ROM,Strength Goals Two Impairment Transfers Short Term Goal (STG) Maggi will roll over in bed without an increase in back pain. STG Duration 4 weeks Gang Tailer Goal (LTG) Maggi will move from supine to standing in the morning after doing her exercises without an increase in back pain. LTG Duration 8 weeks One Impairment Back pain Short Term Goal (STG) Maggi will stand to dog and cat food cook for 30 minutes without an increase in her baseline back pain. STG Duration 4 weeks Mcfp Goal (LTG) Maggi will walk for 30 minutes without an increase in bilateral hip pain. LTG Duration 8 weeks Assessment Summary Assessment Maggi attends physical therapy with an increase in back and bilateral hip pain that limits her ability to stand, walk, and roll over in bed. Her Parkinson's also increases her stiffness and difficulty with gait and transfers. Her symptoms improve with movement and worsen with being stationary. She will benefit from an exercise program that progresses her core stability and hip/lumbar flexibility in addition to taking into consideration her stiffness and gait/transfer changes due to her Parkinson's disease. Physical Therapy Plan Frequency and Duration Frequency of Treatment 2x/Week Duration of treatment (weeks) 8 Plan of Care Start Date 05/17/22 Plan of Care End Date 07/12/22 Therapeutic Interventions Therapeutic Interventions Balance Training,Gait Training ,Home Exercise Program,Joint Mobilizations,Manual Therapy, Neuromuscular Re-education, Self-Care/Home Management, Therapeutic Activities, Therapeutic Exercises Modalities Cold Pack/Ice Massage,Electric Stimulation,Hot Packs, Traction- Mechanical Next Visit Focus/Plan Next Note Type Treatment Note Next Visit Plan Progress hip mobility and core stabilization HEP Plan of Care Dates Plan of Care Start Date 05/17/22 Plan of Care End Date 07/12/22 Electronically Signed by: Diana Cruz, PT 05/21/22 0002 If you are in agreement with this Plan of Care, please return a signed and dated copy. I have reviewed this Plan of Care and certify that the skilled therapy services above are required to meet the patient?s needs. Physician Signature Date Printed Name and Credentials Clinical Instructor Signature Printed Name and Credentials
--- NOTE | 2022-05-17 21:36 | PT.OIE ---
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) Spinal stenosis, lumbar region without neurogenic claudication (05/17/22) Trochanteric bursitis, right hip (05/17/22) Past Medical History (Last Updated 04/27/22 @ 15:50 by Brandon Caballero MD) History of arthritis Hx of Parkinson's disease Microscopic hematuria Overactive bladder Vertigo Past Surgical History (Last Reviewed 03/22/22 @ 15:43 by Brandon Caballero MD) Hx of section Hx of shoulder surgery Status post delivery Status post cholecystectomy Visit Care Team Role Provider Type Rocio Camarillo PA-C Primary Care Provider Non-Staff Specialty: [facility] Address: [address] [place] [address], [id number] Email: [email or web address] Attending Provider Physician Referring Provider Specialty: Orthopedics Orthopedic Surgery [facility] Address: [address] [place] [address], [address] Email: [email or web address] Physical Therapy Initial Evaluation PT-OP-A Visit Information Start: 05/16/22 19:55 Freq: Status: Active Protocol: Document 05/17/22 13:01 AMB (Rec: 05/17/22 13:20 AMB [id number]) Out-Patient Physical Therapy Visit Information Visit Information Visit Type Initial Evaluation Visit Start Time 13:00 Visit Stop Time 13:45 Total Visit Minutes 45 Visit Number 1 PT-OP-B Current Condition Start: 05/16/22 19:55 Freq: Status: Active Protocol: Document 05/17/22 13:01 AMB (Rec: 05/17/22 13:20 AMB [id number]) Current Condition History of Current Condition Onset Date actue exacerbation of chronic pain Current Complaints back pain History of Current Condition Maggi attends for back pain, parkinsons. Standing increases the pain. Rolling over in bed is painful and wakes her up. Does do BIG exercises and overall feels better while moving, standing stationary is the most painful . She cooks a lot and this is painful for her. When waking up legs feel weak. Has had PD for years, does notice freezing vinny in doorways, difficulty walking backwards. Treatment Goals Patient/Caregiver Goals STand, roll over less back pain, walking less hip pain bilateral Personal Factors Other Personal Factors That May Effect Parkinsons Therapy/Recovery PT-OP-G Mobility & Gait Start: 05/16/22 19:55 Freq: Status: Active Protocol: Document 05/17/22 13:45 AMB (Rec: 05/21/22 21:33 AMB [id number]) OP Mobility Evaluation Bed Mobility Rolling pain with rolling over in bed OP Gait Assessment Comments Gait Comments Freezing at doorway, difficulty with turns, reduced trunk rotation PT-OP-J Posture/Palpation/Skin Start: 05/16/22 19:55 Freq: Status: Active Protocol: Document 05/17/22 13:45 AMB (Rec: 05/21/22 21:33 AMB [id number]) Posture Evaluation Comments Posture Comments Flat lumbar spine Palpation Assessment Location One Palpation Findings Soft Tissue Tightness, Tenderness Palpation Details lumbar paraspinals hypertonic PT-OP-K Range of Motion Start: 05/16/22 19:55 Freq: Status: Active Protocol: Document 05/20/22 13:00 AMB (Rec: 05/20/22 15:50 AMB [id number]) Lumbar Spine Range of Motion Lumbar Spine Passive Degrees Testing Position Standing Flexion 50 Extension 15 Lateral Flexion Left 10 Lateral Flexion Right 15 PT-OP-Q Treatments Start: 05/16/22 19:55 Freq: Status: Active Protocol: Document 05/17/22 13:45 AMB (Rec: 05/21/22 21:09 AMB [email or web address]) Therapeutic Exercises Supine Exercises single knee to chest Reps/Minutes 30x2 piriformis stretch Reps/Minutes 30x2 PT-OP-T Assessment and Plan Start: 05/16/22 19:55 Freq: Status: Active Protocol: Document 05/17/22 13:45 AMB (Rec: 05/21/22 21:33 AMB [id number]) Physical Therapy Assessment Evaluation Complexity Number of Body Systems Impaired 3 Clinical Presentation at Evaluation Evolving Impairments Impairments Activity Tolerance,Balance, Functional Activities, Functional Mobility,Gait,Pain, Posture,ROM,Strength Goals Two Impairment Transfers Short Term Goal (STG) Maggi will roll over in bed without an increase in back pain. STG Duration 4 weeks Auto Mechanic Goal (LTG) Maggi will move from supine to standing in the morning after doing her exercises without an increase in back pain. LTG Duration 8 weeks One Impairment Back pain Short Term Goal (STG) Maggi will stand to cheese cook for 30 minutes without an increase in her baseline back pain. STG Duration 4 weeks Custodial Goal (LTG) Maggi will walk for 30 minutes without an increase in bilateral hip pain. LTG Duration 8 weeks Assessment Summary Assessment Maggi attends physical therapy with an increase in back and bilateral hip pain that limits her ability to stand, walk, and roll over in bed. Her Parkinson's also increases her stiffness and difficulty with gait and transfers. Her symptoms improve with movement and worsen with being stationary. She will benefit from an exercise program that progresses her core stability and hip/lumbar flexibility in addition to taking into consideration her stiffness and gait/transfer changes due to her Parkinson's disease. Physical Therapy Plan Frequency and Duration Frequency of Treatment 2x/Week Duration of treatment (weeks) 8 Plan of Care Start Date 05/17/22 Plan of Care End Date 07/12/22 Therapeutic Interventions Therapeutic Interventions Balance Training,Gait Training ,Home Exercise Program,Joint Mobilizations,Manual Therapy, Neuromuscular Re-education, Self-Care/Home Management, Therapeutic Activities, Therapeutic Exercises Modalities Cold Pack/Ice Massage,Electric Stimulation,Hot Packs, Traction- Mechanical Next Visit Focus/Plan Next Note Type Treatment Note Next Visit Plan Progress hip mobility and core stabilization HEP
--- NOTE | 2022-05-23 20:47 | PT.OTN ---
Current Diagnoses Parkinson's disease (05/23/22) Spondylosis without myelopathy or radiculopathy, lumbar region (05/23/22) Spinal stenosis, lumbar region without neurogenic claudication (05/23/22) Trochanteric bursitis, right hip (05/23/22) Physical Therapy Treatment Note PT-OP-A Visit Information Start: 05/16/22 19:55 Freq: Status: Active Protocol: Document 05/23/22 13:03 AMB (Rec: 05/23/22 13:47 AMB [id number]) Out-Patient Physical Therapy Visit Information Visit Information Visit Type Treatment Note Visit Start Time 13:00 Visit Stop Time 13:45 Total Visit Minutes 45 Visit Number 2 PT-OP-B Current Condition Start: 05/16/22 19:55 Freq: Status: Active Protocol: Document 05/17/22 13:01 AMB (Rec: 05/17/22 13:20 AMB [id number]) Current Condition History of Current Condition Onset Date actue exacerbation of chronic pain Current Complaints back pain History of Current Condition Maggi attends for back pain, parkinsons. Standing increases the pain. Rolling over in bed is painful and wakes her up. Does do BIG exercises and overall feels better while moving, standing stationary is the most painful . She cooks a lot and this is painful for her. When waking up legs feel weak. Has had PD for years, does notice freezing vinny in doorways, difficulty walking backwards. Treatment Goals Patient/Caregiver Goals STand, roll over less back pain, walking less hip pain bilateral Personal Factors Other Personal Factors That May Effect Parkinsons Therapy/Recovery PT-OP-C Subjective Start: 05/16/22 19:55 Freq: Status: Active Protocol: Document 05/23/22 13:03 AMB (Rec: 05/23/22 13:47 AMB [id number]) OP-PT Subjective Patient Comments Patient Comments Maggi reports exercises are going well, painis going into buttocks PT-OP-G Mobility & Gait Start: 05/16/22 19:55 Freq: Status: Active Protocol: Document 05/17/22 13:45 AMB (Rec: 05/21/22 21:33 AMB [id number]) OP Mobility Evaluation Bed Mobility Rolling pain with rolling over in bed OP Gait Assessment Comments Gait Comments Freezing at doorway, difficulty with turns, reduced trunk rotation PT-OP-J Posture/Palpation/Skin Start: 05/16/22 19:55 Freq: Status: Active Protocol: Document 05/17/22 13:45 AMB (Rec: 05/21/22 21:33 AMB [id number]) Posture Evaluation Comments Posture Comments Flat lumbar spine Palpation Assessment Location One Palpation Findings Soft Tissue Tightness, Tenderness Palpation Details lumbar paraspinals hypertonic PT-OP-K Range of Motion Start: 05/16/22 19:55 Freq: Status: Active Protocol: Document 05/20/22 13:00 AMB (Rec: 05/20/22 15:50 AMB [id number]) Lumbar Spine Range of Motion Lumbar Spine Passive Degrees Testing Position Standing Flexion 50 Extension 15 Lateral Flexion Left 10 Lateral Flexion Right 15 PT-OP-Q Treatments Start: 05/16/22 19:55 Freq: Status: Active Protocol: Document 05/23/22 13:00 AMB (Rec: 05/24/22 20:46 AMB [id number]) Therapeutic Exercises Supine Exercises TA Supine Exercise Name bent leg lift Reps/Minutes 10 LTR Side bilateral Reps/Minutes 10 single knee to chest Side bilateral Reps/Minutes 30x2 piriformis stretch Side bilateral Reps/Minutes 30x2 Sidelying Exercises open book Side bilateral Reps/Minutes 2x10 Therapeutic Activity Therapeutic Activity bed mobility Reps/Minutes 10 min Comments punch, bridge, use momentum, bend knees PT-OP-T Assessment and Plan Start: 05/16/22 19:55 Freq: Status: Active Protocol: Document 05/23/22 13:03 AMB (Rec: 05/23/22 13:47 AMB [id number]) Physical Therapy Assessment Goals Two Impairment Transfers Short Term Goal (STG) Maggi will roll over in bed without an increase in back pain. STG Duration 4 weeks Jail Goal (LTG) Maggi will move from supine to standing in the morning after doing her exercises without an increase in back pain. LTG Duration 8 weeks One Impairment Back pain Short Term Goal (STG) Maggi will stand to candy cooker helper for 30 minutes without an increase in her baseline back pain. STG Duration 4 weeks Jail Goal (LTG) Maggi will walk for 30 minutes without an increase in bilateral hip pain. 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 Rolling over in bed continues to be challenging depsite cues to punch use momentum. Physical Therapy Plan Next Visit Focus/Plan Next Note Type Treatment Note Next Visit Plan Progress hip mobility and core stabilization HEP
--- NOTE | 2022-05-25 15:21 | PT.OTN ---
Current Diagnoses Parkinson's disease (05/25/22) Spondylosis without myelopathy or radiculopathy, lumbar region (05/25/22) Spinal stenosis, lumbar region without neurogenic claudication (05/25/22) Trochanteric bursitis, right hip (05/25/22) Physical Therapy Treatment Note PT-OP-A Visit Information Start: 05/16/22 19:55 Freq: Status: Active Protocol: Document 05/25/22 12:54 AMB (Rec: 05/25/22 13:53 AMB [id number]) Out-Patient Physical Therapy Visit Information Visit Information Visit Type Treatment Note Visit Start Time 13:00 Visit Stop Time 13:45 Total Visit Minutes 45 Visit Number 3 PT-OP-B Current Condition Start: 05/16/22 19:55 Freq: Status: Active Protocol: Document 05/17/22 13:01 AMB (Rec: 05/17/22 13:20 AMB [id number]) Current Condition History of Current Condition Onset Date actue exacerbation of chronic pain Current Complaints back pain History of Current Condition Maggi attends for back pain, parkinsons. Standing increases the pain. Rolling over in bed is painful and wakes her up. Does do BIG exercises and overall feels better while moving, standing stationary is the most painful . She cooks a lot and this is painful for her. When waking up legs feel weak. Has had PD for years, does notice freezing vinny in doorways, difficulty walking backwards. Treatment Goals Patient/Caregiver Goals STand, roll over less back pain, walking less hip pain bilateral Personal Factors Other Personal Factors That May Effect Parkinsons Therapy/Recovery PT-OP-C Subjective Start: 05/16/22 19:55 Freq: Status: Active Protocol: Document 05/25/22 12:54 AMB (Rec: 05/25/22 13:53 AMB [id number]) OP-PT Subjective Patient Comments Patient Comments Maggi reports R sided back pain woke up with it. PT-OP-G Mobility & Gait Start: 05/16/22 19:55 Freq: Status: Active Protocol: Document 05/17/22 13:45 AMB (Rec: 05/21/22 21:33 AMB [id number]) OP Mobility Evaluation Bed Mobility Rolling pain with rolling over in bed OP Gait Assessment Comments Gait Comments Freezing at doorway, difficulty with turns, reduced trunk rotation PT-OP-J Posture/Palpation/Skin Start: 05/16/22 19:55 Freq: Status: Active Protocol: Document 05/17/22 13:45 AMB (Rec: 05/21/22 21:33 AMB [id number]) Posture Evaluation Comments Posture Comments Flat lumbar spine Palpation Assessment Location One Palpation Findings Soft Tissue Tightness, Tenderness Palpation Details lumbar paraspinals hypertonic PT-OP-K Range of Motion Start: 05/16/22 19:55 Freq: Status: Active Protocol: Document 05/20/22 13:00 AMB (Rec: 05/20/22 15:50 AMB [id number]) Lumbar Spine Range of Motion Lumbar Spine Passive Degrees Testing Position Standing Flexion 50 Extension 15 Lateral Flexion Left 10 Lateral Flexion Right 15 PT-OP-Q Treatments Start: 05/16/22 19:55 Freq: Status: Active Protocol: Document 05/25/22 12:54 AMB (Rec: 05/25/22 13:53 AMB [id number]) Therapeutic Exercises Supine Exercises IT band stretch Reps/Minutes 30x2 Comments HEP TA Supine Exercise Name bent leg lift Reps/Minutes 10 LTR Side bilateral Reps/Minutes 10 Comments HEP single knee to chest Side bilateral Reps/Minutes 30x2 piriformis stretch Side bilateral Reps/Minutes 30x2 Comments HEP Sidelying Exercises open book Side bilateral Reps/Minutes 2x10 Other Exercises thread the needle Reps/Minutes 2x10 Comments HEP PT-OP-T Assessment and Plan Start: 05/16/22 19:55 Freq: Status: Active Protocol: Document 05/25/22 12:54 AMB (Rec: 05/25/22 13:53 AMB [id number]) Physical Therapy Assessment Goals Two Impairment Transfers Short Term Goal (STG) Maggi will roll over in bed without an increase in back pain. STG Duration 4 weeks Senior Medical Transcriptionist Goal (LTG) Maggi will move from supine to standing in the morning after doing her exercises without an increase in back pain. LTG Duration 8 weeks One Impairment Back pain Short Term Goal (STG) Maggi will stand to banquet line cook for 30 minutes without an increase in her baseline back pain. STG Duration 4 weeks Senior Medical Transcriptionist Goal (LTG) Maggi will walk for 30 minutes without an increase in bilateral hip pain. LTG Duration 8 weeks Assessment Summary Assessment Maggi was having more back/ hip pain today but does respond well to exercise, pt's PD sx continue to exacerbate stiffness. Maggi continues to note impaired sleep, difficulty staying asleep. Physical Therapy Plan Next Visit Focus/Plan Next Note Type Treatment Note Next Visit Plan Progress hip mobility and core stabilization HEP
--- NOTE | 2022-05-30 13:49 | PT.OTN ---
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) Spinal stenosis, lumbar region without neurogenic claudication (05/30/22) Trochanteric bursitis, right hip (05/30/22) Physical Therapy Treatment Note PT-OP-A Visit Information Start: 05/16/22 19:55 Freq: Status: Active Protocol: Document 05/30/22 13:00 AMB (Rec: 05/30/22 13:46 AMB [id number]) Out-Patient Physical Therapy Visit Information Visit Information Visit Type Treatment Note Visit Start Time 13:00 Visit Stop Time 13:45 Total Visit Minutes 45 Visit Number 4 PT-OP-B Current Condition Start: 05/16/22 19:55 Freq: Status: Active Protocol: Document 05/17/22 13:01 AMB (Rec: 05/17/22 13:20 AMB [id number]) Current Condition History of Current Condition Onset Date actue exacerbation of chronic pain Current Complaints back pain History of Current Condition Maggi attends for back pain, parkinsons. Standing increases the pain. Rolling over in bed is painful and wakes her up. Does do BIG exercises and overall feels better while moving, standing stationary is the most painful . She cooks a lot and this is painful for her. When waking up legs feel weak. Has had PD for years, does notice freezing vinny in doorways, difficulty walking backwards. Treatment Goals Patient/Caregiver Goals STand, roll over less back pain, walking less hip pain bilateral Personal Factors Other Personal Factors That May Effect Parkinsons Therapy/Recovery PT-OP-C Subjective Start: 05/16/22 19:55 Freq: Status: Active Protocol: Document 05/30/22 13:00 AMB (Rec: 05/30/22 13:46 AMB [id number]) OP-PT Subjective Patient Comments Patient Comments R sided back pain continues-- about the same-- pain does get better with stretches but then comes right back. PT-OP-G Mobility & Gait Start: 05/16/22 19:55 Freq: Status: Active Protocol: Document 05/17/22 13:45 AMB (Rec: 05/21/22 21:33 AMB [id number]) OP Mobility Evaluation Bed Mobility Rolling pain with rolling over in bed OP Gait Assessment Comments Gait Comments Freezing at doorway, difficulty with turns, reduced trunk rotation PT-OP-J Posture/Palpation/Skin Start: 05/16/22 19:55 Freq: Status: Active Protocol: Document 05/17/22 13:45 AMB (Rec: 05/21/22 21:33 AMB [id number]) Posture Evaluation Comments Posture Comments Flat lumbar spine Palpation Assessment Location One Palpation Findings Soft Tissue Tightness, Tenderness Palpation Details lumbar paraspinals hypertonic PT-OP-K Range of Motion Start: 05/16/22 19:55 Freq: Status: Active Protocol: Document 05/20/22 13:00 AMB (Rec: 05/20/22 15:50 AMB [id number]) Lumbar Spine Range of Motion Lumbar Spine Passive Degrees Testing Position Standing Flexion 50 Extension 15 Lateral Flexion Left 10 Lateral Flexion Right 15 PT-OP-Q Treatments Start: 05/16/22 19:55 Freq: Status: Active Protocol: Document 05/30/22 13:00 AMB (Rec: 05/30/22 13:46 AMB [id number]) Therapeutic Exercises Supine Exercises bridges Comments increased pain-discontinued IT band stretch Reps/Minutes 30x2 Comments HEP TA Supine Exercise Name bent leg lift Reps/Minutes 10 LTR Side bilateral Reps/Minutes 10 Comments HEP single knee to chest Side bilateral Reps/Minutes 30x2 piriformis stretch Side bilateral Reps/Minutes 30x2 Comments HEP Sidelying Exercises open book Side bilateral Reps/Minutes 2x10 Other Exercises quadruped UE ext Reps/Minutes 2x10 pipo pose Reps/Minutes 30x2 PT-OP-R Modalities Start: 05/16/22 19:55 Freq: Status: Active Protocol: Document 05/30/22 13:00 AMB (Rec: 05/30/22 13:49 AMB [id number]) Electric Stimulation Electric Stimulation Interferential Current (IFC) Body Location R low back Duration (Minutes) 15 Patient Position Hooklying Combined With Heat/Cold Hot Pack PT-OP-T Assessment and Plan Start: 05/16/22 19:55 Freq: Status: Active Protocol: Document 05/30/22 13:00 AMB (Rec: 05/30/22 13:46 AMB [id number]) Physical Therapy Assessment Goals Two Impairment Transfers Short Term Goal (STG) Maggi will roll over in bed without an increase in back pain. STG Duration 4 weeks Chart Computer Goal (LTG) Maggi will move from supine to standing in the morning after doing her exercises without an increase in back pain. LTG Duration 8 weeks One Impairment Back pain Short Term Goal (STG) Maggi will stand to cooker sulfite for 30 minutes without an increase in her baseline back pain. STG Duration 4 weeks Shelter Goal (LTG) Maggi will walk for 30 minutes without an increase in bilateral hip pain. LTG Duration 8 weeks Assessment Summary Assessment Maggi continues to have difficulty sleeping and back pain R>L that are limiting her function. Bridges increased her pain but pt did do well with stretches. Physical Therapy Plan Frequency and Duration Frequency of Treatment 2x/Week Duration of treatment (weeks) 8 Plan of Care Start Date 05/17/22 Plan of Care End Date 07/12/22 Therapeutic Interventions Therapeutic Interventions Balance Training,Gait Training ,Home Exercise Program,Joint Mobilizations,Manual Therapy, Neuromuscular Re-education, Self-Care/Home Management, Therapeutic Activities, Therapeutic Exercises Modalities Cold Pack/Ice Massage,Electric Stimulation,Hot Packs, Traction- Mechanical Next Visit Focus/Plan Next Note Type Treatment Note Next Visit Plan Progress hip mobility and core stabilization HEP
--- NOTE | 2022-05-31 16:00 | PT.OTN ---
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) Spinal stenosis, lumbar region without neurogenic claudication (05/30/22) Trochanteric bursitis, right hip (05/30/22) Physical Therapy Treatment Note PT-OP-A Visit Information Start: 05/16/22 19:55 Freq: Status: Active Protocol: Document 05/30/22 13:00 AMB (Rec: 05/30/22 13:46 AMB [id number]) Out-Patient Physical Therapy Visit Information Visit Information Visit Type Treatment Note Visit Start Time 13:00 Visit Stop Time 13:45 Total Visit Minutes 45 Visit Number 4 PT-OP-B Current Condition Start: 05/16/22 19:55 Freq: Status: Active Protocol: Document 05/17/22 13:01 AMB (Rec: 05/17/22 13:20 AMB [id number]) Current Condition History of Current Condition Onset Date actue exacerbation of chronic pain Current Complaints back pain History of Current Condition Maggi attends for back pain, parkinsons. Standing increases the pain. Rolling over in bed is painful and wakes her up. Does do BIG exercises and overall feels better while moving, standing stationary is the most painful . She cooks a lot and this is painful for her. When waking up legs feel weak. Has had PD for years, does notice freezing vinny in doorways, difficulty walking backwards. Treatment Goals Patient/Caregiver Goals STand, roll over less back pain, walking less hip pain bilateral Personal Factors Other Personal Factors That May Effect Parkinsons Therapy/Recovery PT-OP-C Subjective Start: 05/16/22 19:55 Freq: Status: Active Protocol: Document 05/30/22 13:00 AMB (Rec: 05/30/22 13:46 AMB [id number]) OP-PT Subjective Patient Comments Patient Comments R sided back pain continues-- about the same-- pain does get better with stretches but then comes right back. PT-OP-G Mobility & Gait Start: 05/16/22 19:55 Freq: Status: Active Protocol: Document 05/17/22 13:45 AMB (Rec: 05/21/22 21:33 AMB [id number]) OP Mobility Evaluation Bed Mobility Rolling pain with rolling over in bed OP Gait Assessment Comments Gait Comments Freezing at doorway, difficulty with turns, reduced trunk rotation PT-OP-J Posture/Palpation/Skin Start: 05/16/22 19:55 Freq: Status: Active Protocol: Document 05/17/22 13:45 AMB (Rec: 05/21/22 21:33 AMB [id number]) Posture Evaluation Comments Posture Comments Flat lumbar spine Palpation Assessment Location One Palpation Findings Soft Tissue Tightness, Tenderness Palpation Details lumbar paraspinals hypertonic PT-OP-K Range of Motion Start: 05/16/22 19:55 Freq: Status: Active Protocol: Document 05/20/22 13:00 AMB (Rec: 05/20/22 15:50 AMB [id number]) Lumbar Spine Range of Motion Lumbar Spine Passive Degrees Testing Position Standing Flexion 50 Extension 15 Lateral Flexion Left 10 Lateral Flexion Right 15 PT-OP-Q Treatments Start: 05/16/22 19:55 Freq: Status: Active Protocol: Document 05/30/22 13:00 AMB (Rec: 05/30/22 13:46 AMB [id number]) Therapeutic Exercises Supine Exercises bridges Comments increased pain-discontinued IT band stretch Reps/Minutes 30x2 Comments HEP TA Supine Exercise Name bent leg lift Reps/Minutes 10 LTR Side bilateral Reps/Minutes 10 Comments HEP single knee to chest Side bilateral Reps/Minutes 30x2 piriformis stretch Side bilateral Reps/Minutes 30x2 Comments HEP Sidelying Exercises open book Side bilateral Reps/Minutes 2x10 Other Exercises quadruped UE ext Reps/Minutes 2x10 pipo pose Reps/Minutes 30x2 PT-OP-R Modalities Start: 05/16/22 19:55 Freq: Status: Active Protocol: Document 05/30/22 13:00 AMB (Rec: 05/30/22 13:49 AMB [id number]) Electric Stimulation Electric Stimulation Interferential Current (IFC) Body Location R low back Duration (Minutes) 15 Patient Position Hooklying Combined With Heat/Cold Hot Pack PT-OP-T Assessment and Plan Start: 05/16/22 19:55 Freq: Status: Active Protocol: Document 05/30/22 13:00 AMB (Rec: 05/30/22 13:46 AMB [id number]) Physical Therapy Assessment Goals Two Impairment Transfers Short Term Goal (STG) Maggi will roll over in bed without an increase in back pain. STG Duration 4 weeks Supply Planner Goal (LTG) Maggi will move from supine to standing in the morning after doing her exercises without an increase in back pain. LTG Duration 8 weeks One Impairment Back pain Short Term Goal (STG) Maggi will stand to mexican food cook for 30 minutes without an increase in her baseline back pain. STG Duration 4 weeks Penitentiary Goal (LTG) Maggi will walk for 30 minutes without an increase in bilateral hip pain. LTG Duration 8 weeks Assessment Summary Assessment Maggi continues to have difficulty sleeping and back pain R>L that are limiting her function. Bridges increased her pain but pt did do well with stretches. Physical Therapy Plan Frequency and Duration Frequency of Treatment 2x/Week Duration of treatment (weeks) 8 Plan of Care Start Date 05/17/22 Plan of Care End Date 07/12/22 Therapeutic Interventions Therapeutic Interventions Balance Training,Gait Training ,Home Exercise Program,Joint Mobilizations,Manual Therapy, Neuromuscular Re-education, Self-Care/Home Management, Therapeutic Activities, Therapeutic Exercises Modalities Cold Pack/Ice Massage,Electric Stimulation,Hot Packs, Traction- Mechanical Next Visit Focus/Plan Next Note Type Treatment Note Next Visit Plan Progress hip mobility and core stabilization HEP
--- NOTE | 2022-06-01 15:32 | PT.OTN ---
Current Diagnoses Parkinson's disease (06/01/22) Spondylosis without myelopathy or radiculopathy, lumbar region (06/01/22) Spinal stenosis, lumbar region without neurogenic claudication (06/01/22) Trochanteric bursitis, right hip (06/01/22) Physical Therapy Treatment Note PT-OP-A Visit Information Start: 05/16/22 19:55 Freq: Status: Active Protocol: Document 06/01/22 13:02 AMB (Rec: 06/01/22 13:46 AMB [id number]) Out-Patient Physical Therapy Visit Information Visit Information Visit Type Treatment Note Visit Start Time 13:00 Visit Stop Time 13:45 Total Visit Minutes 45 Visit Number 5 PT-OP-B Current Condition Start: 05/16/22 19:55 Freq: Status: Active Protocol: Document 05/17/22 13:01 AMB (Rec: 05/17/22 13:20 AMB [id number]) Current Condition History of Current Condition Onset Date actue exacerbation of chronic pain Current Complaints back pain History of Current Condition Maggi attends for back pain, parkinsons. Standing increases the pain. Rolling over in bed is painful and wakes her up. Does do BIG exercises and overall feels better while moving, standing stationary is the most painful . She cooks a lot and this is painful for her. When waking up legs feel weak. Has had PD for years, does notice freezing vinny in doorways, difficulty walking backwards. Treatment Goals Patient/Caregiver Goals STand, roll over less back pain, walking less hip pain bilateral Personal Factors Other Personal Factors That May Effect Parkinsons Therapy/Recovery PT-OP-C Subjective Start: 05/16/22 19:55 Freq: Status: Active Protocol: Document 06/01/22 13:02 AMB (Rec: 06/01/22 13:46 AMB [id number]) OP-PT Subjective Patient Comments Patient Comments Pain was better after last visit, liked the estim would like to try it again before purchasing TENS unit. PT-OP-G Mobility & Gait Start: 05/16/22 19:55 Freq: Status: Active Protocol: Document 05/17/22 13:45 AMB (Rec: 05/21/22 21:33 AMB [id number]) OP Mobility Evaluation Bed Mobility Rolling pain with rolling over in bed OP Gait Assessment Comments Gait Comments Freezing at doorway, difficulty with turns, reduced trunk rotation PT-OP-J Posture/Palpation/Skin Start: 05/16/22 19:55 Freq: Status: Active Protocol: Document 05/17/22 13:45 AMB (Rec: 05/21/22 21:33 AMB [id number]) Posture Evaluation Comments Posture Comments Flat lumbar spine Palpation Assessment Location One Palpation Findings Soft Tissue Tightness, Tenderness Palpation Details lumbar paraspinals hypertonic PT-OP-K Range of Motion Start: 05/16/22 19:55 Freq: Status: Active Protocol: Document 05/20/22 13:00 AMB (Rec: 05/20/22 15:50 AMB [id number]) Lumbar Spine Range of Motion Lumbar Spine Passive Degrees Testing Position Standing Flexion 50 Extension 15 Lateral Flexion Left 10 Lateral Flexion Right 15 PT-OP-Q Treatments Start: 05/16/22 19:55 Freq: Status: Active Protocol: Document 06/01/22 15:26 AMB (Rec: 06/01/22 15:28 AMB [id number]) Therapeutic Exercises Supine Exercises bent knee fall out Side bilateral Reps/Minutes 10 IT band stretch Reps/Minutes 30x2 Comments HEP TA Supine Exercise Name bent leg lift Reps/Minutes 10 LTR Side bilateral Reps/Minutes 10 Comments HEP single knee to chest Side bilateral Reps/Minutes 30x2 piriformis stretch Side bilateral Reps/Minutes 30x2 Comments HEP Sidelying Exercises open book Side bilateral Reps/Minutes 2x10 PT-OP-R Modalities Start: 05/16/22 19:55 Freq: Status: Active Protocol: Document 06/01/22 13:02 AMB (Rec: 06/01/22 13:46 AMB [id number]) Electric Stimulation Electric Stimulation Interferential Current (IFC) Body Location B low back Duration (Minutes) 15 Patient Position Hooklying Combined With Heat/Cold Hot Pack PT-OP-T Assessment and Plan Start: 05/16/22 19:55 Freq: Status: Active Protocol: Document 06/01/22 13:02 AMB (Rec: 06/01/22 13:46 AMB [id number]) Physical Therapy Assessment Goals Two Impairment Transfers Short Term Goal (STG) Maggi will roll over in bed without an increase in back pain. STG Duration 4 weeks [facility] Goal (LTG) Maggi will move from supine to standing in the morning after doing her exercises without an increase in back pain. LTG Duration 8 weeks One Impairment Back pain Short Term Goal (STG) Maggi will stand to cook boat for 30 minutes without an increase in her baseline back pain. STG Duration 4 weeks [facility] Goal (LTG) Maggi will walk for 30 minutes without an increase in bilateral hip pain. LTG Duration 8 weeks Assessment Summary Assessment Maggi is improving with her pain control, but sleep continues to be a big issue. Would recommend following up with her MD regarding difficulty sleeping. Will continue to work on bed mobility as this is a limiting factor as well. If continues to do well with IFC, pt could consider buying home TENS unit. Physical Therapy Plan Next Visit Focus/Plan Next Note Type Treatment Note Next Visit Plan Progress hip mobility and core stabilization HEP
--- NOTE | 2022-06-06 19:44 | PT.OTN ---
Current Diagnoses Parkinson's disease (06/06/22) Spondylosis without myelopathy or radiculopathy, lumbar region (06/06/22) Spinal stenosis, lumbar region without neurogenic claudication (06/06/22) Trochanteric bursitis, right hip (06/06/22) Physical Therapy Treatment Note PT-OP-A Visit Information Start: 05/16/22 19:55 Freq: Status: Active Protocol: Document 06/06/22 14:35 NBM (Rec: 06/06/22 15:21 NB [id number]) Out-Patient Physical Therapy Visit Information Visit Information Visit Type Treatment Note Visit Start Time 14:35 Visit Stop Time 15:15 Total Visit Minutes 40 Visit Number 6 Number of WEB MARKETING SPECIALIST Visits 1 PT-OP-B Current Condition Start: 05/16/22 19:55 Freq: Status: Active Protocol: Document 05/17/22 13:01 AMB (Rec: 05/17/22 13:20 AMB [id number]) Current Condition History of Current Condition Onset Date actue exacerbation of chronic pain Current Complaints back pain History of Current Condition Maggi attends for back pain, parkinsons. Standing increases the pain. Rolling over in bed is painful and wakes her up. Does do BIG exercises and overall feels better while moving, standing stationary is the most painful . She cooks a lot and this is painful for her. When waking up legs feel weak. Has had PD for years, does notice freezing vinny in doorways, difficulty walking backwards. Treatment Goals Patient/Caregiver Goals STand, roll over less back pain, walking less hip pain bilateral Personal Factors Other Personal Factors That May Effect Parkinsons Therapy/Recovery PT-OP-C Subjective Start: 05/16/22 19:55 Freq: Status: Active Protocol: Document 06/06/22 14:35 NBM (Rec: 06/06/22 15:21 [facility] [id number]) OP-PT Subjective Patient Comments Patient Comments Pt still is having trouble sleeping and is tired today. She states she has talked to her doctor before about it but there was nothing they could do to help. When she can't sleep she does her exercises. She wants to wait until next week to try the E-stim again. She sees a massage therapist once a month. PT-OP-G Mobility & Gait Start: 05/16/22 19:55 Freq: Status: Active Protocol: Document 05/17/22 13:45 AMB (Rec: 05/21/22 21:33 AMB [id number]) OP Mobility Evaluation Bed Mobility Rolling pain with rolling over in bed OP Gait Assessment Comments Gait Comments Freezing at doorway, difficulty with turns, reduced trunk rotation PT-OP-J Posture/Palpation/Skin Start: 05/16/22 19:55 Freq: Status: Active Protocol: Document 05/17/22 13:45 AMB (Rec: 05/21/22 21:33 AMB [id number]) Posture Evaluation Comments Posture Comments Flat lumbar spine Palpation Assessment Location One Palpation Findings Soft Tissue Tightness, Tenderness Palpation Details lumbar paraspinals hypertonic PT-OP-K Range of Motion Start: 05/16/22 19:55 Freq: Status: Active Protocol: Document 05/20/22 13:00 AMB (Rec: 05/20/22 15:50 AMB [id number]) Lumbar Spine Range of Motion Lumbar Spine Passive Degrees Testing Position Standing Flexion 50 Extension 15 Lateral Flexion Left 10 Lateral Flexion Right 15 PT-OP-Q Treatments Start: 05/16/22 19:55 Freq: Status: Active Protocol: Document 06/06/22 14:35 NBM (Rec: 06/06/22 15:21 NBM [id number]) Therapeutic Exercises Supine Exercises IT band stretch Side bilateral Equipment Used strap Reps/Minutes 30x2 Comments vc for cervical flexor overactivation - RLE dc'd d/t pain in neck/shoulders LTR Supine Exercise Name Discussed single knee to chest Side bilateral Reps/Minutes 30x2 piriformis stretch Side bilateral Equipment Used strap, manual stretch from WEB MARKETING SPECIALIST Reps/Minutes 30x2 Comments LE assist from therapist for increased stretch per pt request Sidelying Exercises open book Side bilateral Reps/Minutes 2x10 Comments vc for scap setting prior, slower pacing Other Exercises Cat/Cow Comments vc for form, max cues for cat position - improves w/ repetition thread the needle Side bilateral Reps/Minutes 2x10 Comments vc for slower pacing, drop shoulder Manual Therapy Treatment Soft Tissue Mobilization Shoulder Body Location B UT, LS Mobilization Type Rolling,Strumming,Sustained Pressure,Trigger Point Release Intensity/Depth Moderate Body Position Hooklying Comments R>L Cervical Body Location paraspinals, SO, scalenes Mobilization Type Rolling,Sustained Pressure Intensity/Depth Moderate Body Position Hooklying Comments manual trx x2 Good feedback response. PT-OP-R Modalities Start: 05/16/22 19:55 Freq: Status: Active Protocol: Document 06/01/22 13:02 AMB (Rec: 06/01/22 13:46 AMB [id number]) Electric Stimulation Electric Stimulation Interferential Current (IFC) Body Location B low back Duration (Minutes) 15 Patient Position Hooklying Combined With Heat/Cold Hot Pack PT-OP-T Assessment and Plan Start: 05/16/22 19:55 Freq: Status: Active Protocol: Document 06/06/22 14:35 NBM (Rec: 06/06/22 15:21 NBM [id number]) Physical Therapy Assessment Goals Two Impairment Transfers Short Term Goal (STG) Maggi will roll over in bed without an increase in back pain. STG Duration 4 weeks Senior Living Goal (LTG) Maggi will move from supine to standing in the morning after doing her exercises without an increase in back pain. LTG Duration 8 weeks One Impairment Back pain Short Term Goal (STG) Maggi will stand to foreign food specialty cook for 30 minutes without an increase in her baseline back pain. STG Duration 4 weeks Insulation Board Head Saw Operator Goal (LTG) Maggi will walk for 30 minutes without an increase in bilateral hip pain. LTG Duration 8 weeks Assessment Summary Assessment Pt requires consistent cues for slower pacing and transitions, and to hold stretches for at least 30 seconds. Pt needs occasional cues for cervical flexor overactivation when holding strap or leg for stretches- IT band stretch was discontinued due to R-sided pain in neck and shoulders. Palpable tightness in bilateral Upper trapezius R>L improves w/ manual therapy. E-stim declined today, pt would like to try it again next week. Physical Therapy Plan Frequency and Duration Frequency of Treatment 2x/Week Duration of treatment (weeks) 8 Plan of Care Start Date 05/17/22 Plan of Care End Date 07/12/22 Therapeutic Interventions Therapeutic Interventions Balance Training,Gait Training ,Home Exercise Program,Joint Mobilizations,Manual Therapy, Neuromuscular Re-education, Self-Care/Home Management, Therapeutic Activities, Therapeutic Exercises Modalities Cold Pack/Ice Massage,Electric Stimulation,Hot Packs, Traction- Mechanical Next Visit Focus/Plan Next Note Type Treatment Note Next Visit Plan Progress hip mobility and core stabilization HEP
--- NOTE | 2022-06-08 11:15 | PT.OTN ---
Addendum entered and electronically signed by Corinne Galeano, LICENSE EXAMINER 06/08/22 11:33: Pt due to PN in 2 visits, update response to goals. Original Note: Current Diagnoses Parkinson's disease (06/08/22) Spondylosis without myelopathy or radiculopathy, lumbar region (06/08/22) Spinal stenosis, lumbar region without neurogenic claudication (06/08/22) Trochanteric bursitis, right hip (06/08/22) Physical Therapy Treatment Note PT-OP-A Visit Information Start: 05/16/22 19:55 Freq: Status: Active Protocol: Document 06/08/22 10:36 SP (Rec: 06/08/22 11:32 SP [id number]) Out-Patient Physical Therapy Visit Information Visit Information Visit Type Treatment Note Visit Start Time 10:36 Visit Stop Time 11:15 Total Visit Minutes 39 Visit Number 7 Number of LICENSE EXAMINER Visits 2 PT-OP-B Current Condition Start: 05/16/22 19:55 Freq: Status: Active Protocol: Document 05/17/22 13:01 AMB (Rec: 05/17/22 13:20 AMB [id number]) Current Condition History of Current Condition Onset Date actue exacerbation of chronic pain Current Complaints back pain History of Current Condition Maggi attends for back pain, parkinsons. Standing increases the pain. Rolling over in bed is painful and wakes her up. Does do BIG exercises and overall feels better while moving, standing stationary is the most painful . She cooks a lot and this is painful for her. When waking up legs feel weak. Has had PD for years, does notice freezing vinny in doorways, difficulty walking backwards. Treatment Goals Patient/Caregiver Goals STand, roll over less back pain, walking less hip pain bilateral Personal Factors Other Personal Factors That May Effect Parkinsons Therapy/Recovery PT-OP-C Subjective Start: 05/16/22 19:55 Freq: Status: Active Protocol: Document 06/08/22 10:36 SP (Rec: 06/08/22 11:32 SP [id number]) OP-PT Subjective Patient Comments Patient Comments Pt demonstrates slight rounded posture, bent knees and small steps with not full clearance w/ c/o LBP. PT-OP-G Mobility & Gait Start: 05/16/22 19:55 Freq: Status: Active Protocol: Document 05/17/22 13:45 AMB (Rec: 05/21/22 21:33 AMB [id number]) OP Mobility Evaluation Bed Mobility Rolling pain with rolling over in bed OP Gait Assessment Comments Gait Comments Freezing at doorway, difficulty with turns, reduced trunk rotation PT-OP-J Posture/Palpation/Skin Start: 05/16/22 19:55 Freq: Status: Active Protocol: Document 05/17/22 13:45 AMB (Rec: 05/21/22 21:33 AMB [id number]) Posture Evaluation Comments Posture Comments Flat lumbar spine Palpation Assessment Location One Palpation Findings Soft Tissue Tightness, Tenderness Palpation Details lumbar paraspinals hypertonic PT-OP-K Range of Motion Start: 05/16/22 19:55 Freq: Status: Active Protocol: Document 05/20/22 13:00 AMB (Rec: 05/20/22 15:50 AMB [id number]) Lumbar Spine Range of Motion Lumbar Spine Passive Degrees Testing Position Standing Flexion 50 Extension 15 Lateral Flexion Left 10 Lateral Flexion Right 15 PT-OP-Q Treatments Start: 05/16/22 19:55 Freq: Status: Active Protocol: Document 06/08/22 10:36 SP (Rec: 06/08/22 11:32 SP [id number]) Therapeutic Exercises Supine Exercises bent knee fall out Supine Exercise Name HEP reviewed Side bilateral Resistance YTB ( light blue TB #1 home) Reps/Minutes 10 Comments cued stable pelvis bridges Supine Exercise Name HEP reviewed Resistance added Y TB around knees 06/08 Reps/Minutes x10 Comments painfree LTR Supine Exercise Name HEP review Side bilateral Reps/Minutes x10 Comments cued keep pelvis still single knee to chest Side bilateral Reps/Minutes 30x2 Comments good form and stretch response , states hold home until loosens Sitting Exercises STS Sitting Exercise Name added to HEP Equipment Used black table 19 Reps/Minutes x10 Comments cued scoot front, arms across chest, hip hinge slow descent, full stand Standing Exercises self STMs Standing Exercise Name Self STMs: paraspinals, glut Side bilateral Equipment Used tennis ball on wall Reps/Minutes 2 min Comments good feedback response Gait Training Gait Activity no AD Description improve posturing and foot clearance Distance/Duration 170 ft Treatment Focus upright posture, increase stride and foot clearance Comments cued for more upright posturing, knee extension into heel strike, increase stride and foot clearance, cues for maintaining. Manual Therapy Treatment Soft Tissue Mobilization LB Body Location B QL, paraspinals, glut med Mobilization Type Cross-Friction,Strumming Intensity/Depth Moderate Body Position Sidelying Comments good feedback decrease LB muscle tightness Manual Traction LS Details long axis pull each LE Comments good feedback response: can pull more, feels good PT-OP-R Modalities Start: 05/16/22 19:55 Freq: Status: Active Protocol: Document 06/01/22 13:02 AMB (Rec: 06/01/22 13:46 AMB [id number]) Electric Stimulation Electric Stimulation Interferential Current (IFC) Body Location B low back Duration (Minutes) 15 Patient Position Hooklying Combined With Heat/Cold Hot Pack PT-OP-T Assessment and Plan Start: 05/16/22 19:55 Freq: Status: Active Protocol: Document 06/08/22 10:36 SP (Rec: 06/08/22 11:32 SP [id number]) Physical Therapy Assessment Goals Two Impairment Transfers Short Term Goal (STG) Maggi will roll over in bed without an increase in back pain. 06/08/22: reports getting better especially after stretches before gets up but still some pain. STG Duration 4 weeks progressing 06/08 [facility] Goal (LTG) Maggi will move from supine to standing in the morning after doing her exercises without an increase in back pain. 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 06/08/22 unsure if understands but states able to stand up to 3 hours before has to sit down due to LBP but at times if hurries causes increase pain, no time identified. STG Duration 4 weeks progressing 06/08 [facility] Goal (LTG) Maggi will walk for 30 minutes without an increase in bilateral hip pain. 06/08/22: GOAL MET: post injection hasn't had hip pain March or Apr. LTG Duration 8 weeks GOAL MET 06/08/22 Progress Towards Goals Progress Comments MET LTG #1 no hip pain now. Assessment Summary Assessment Pt reported less back pain, unable get scale rating changes, post manual and core HEP review. She improved posture and stride/foot clearance with cues before leaving. Physical Therapy Plan Frequency and Duration Frequency of Treatment 2x/Week Duration of treatment (weeks) 8 Plan of Care Start Date 05/17/22 Plan of Care End Date 07/12/22 Therapeutic Interventions Therapeutic Interventions Balance Training,Gait Training ,Home Exercise Program,Joint Mobilizations,Manual Therapy, Neuromuscular Re-education, Self-Care/Home Management, Therapeutic Activities, Therapeutic Exercises Modalities Cold Pack/Ice Massage,Electric Stimulation,Hot Packs, Traction- Mechanical Next Visit Focus/Plan Next Note Type Treatment Note Next Visit Plan review flexibility, add standing balance/gait for improved foot clerance/stride length for safety gait. POC: Progress hip mobility and core stabilization HEP
--- NOTE | 2022-06-15 14:30 | PT.OTN ---
Addendum entered and electronically signed by Corinne Galeano PTA 06/15/22 14:47: PN due in 2 visits. Original Note: Current Diagnoses Parkinson's disease (06/15/22) Spondylosis without myelopathy or radiculopathy, lumbar region (06/15/22) Spinal stenosis, lumbar region without neurogenic claudication (06/15/22) Trochanteric bursitis, right hip (06/15/22) Physical Therapy Treatment Note PT-OP-A Visit Information Start: 05/16/22 19:55 Freq: Status: Active Protocol: Document 06/15/22 13:50 SP (Rec: 06/15/22 14:44 SP [id number]) Out-Patient Physical Therapy Visit Information Visit Information Visit Type Treatment Note Visit Note DALTON Zepeda instructed pt HEP review while under direct supervision and guidence of ANTONIO Sun. Visit Start Time 13:51 Visit Stop Time 14:30 Total Visit Minutes 39 Visit Number 8 Number of RIDDLER OPERATOR Visits 3 PT-OP-B Current Condition Start: 05/16/22 19:55 Freq: Status: Active Protocol: Document 05/17/22 13:01 AMB (Rec: 05/17/22 13:20 AMB [id number]) Current Condition History of Current Condition Onset Date actue exacerbation of chronic pain Current Complaints back pain History of Current Condition Maggi attends for back pain, parkinsons. Standing increases the pain. Rolling over in bed is painful and wakes her up. Does do BIG exercises and overall feels better while moving, standing stationary is the most painful . She cooks a lot and this is painful for her. When waking up legs feel weak. Has had PD for years, does notice freezing vinny in doorways, difficulty walking backwards. Treatment Goals Patient/Caregiver Goals STand, roll over less back pain, walking less hip pain bilateral Personal Factors Other Personal Factors That May Effect Parkinsons Therapy/Recovery PT-OP-C Subjective Start: 05/16/22 19:55 Freq: Status: Active Protocol: Document 06/15/22 13:50 SP (Rec: 06/15/22 14:44 SP [id number]) OP-PT Subjective Patient Comments Patient Comments Pt reported improving but not back to normal steps. Pt states her and walking around [employer] lately to get some exercise if raining out. PT-OP-G Mobility & Gait Start: 05/16/22 19:55 Freq: Status: Active Protocol: Document 05/17/22 13:45 AMB (Rec: 05/21/22 21:33 AMB [id number]-) OP Mobility Evaluation Bed Mobility Rolling pain with rolling over in bed OP Gait Assessment Comments Gait Comments Freezing at doorway, difficulty with turns, reduced trunk rotation PT-OP-J Posture/Palpation/Skin Start: 05/16/22 19:55 Freq: Status: Active Protocol: Document 05/17/22 13:45 AMB (Rec: 05/21/22 21:33 AMB [id number]-) Posture Evaluation Comments Posture Comments Flat lumbar spine Palpation Assessment Location One Palpation Findings Soft Tissue Tightness, Tenderness Palpation Details lumbar paraspinals hypertonic PT-OP-K Range of Motion Start: 05/16/22 19:55 Freq: Status: Active Protocol: Document 05/20/22 13:00 AMB (Rec: 05/20/22 15:50 AMB [id number]) Lumbar Spine Range of Motion Lumbar Spine Passive Degrees Testing Position Standing Flexion 50 Extension 15 Lateral Flexion Left 10 Lateral Flexion Right 15 PT-OP-Q Treatments Start: 05/16/22 19:55 Freq: Status: Active Protocol: Document 06/15/22 13:50 SP (Rec: 06/15/22 14:44 SP [id number]) Therapeutic Exercises Supine Exercises bent knee fall out Supine Exercise Name HEP reviewed Side bilateral Resistance YTB ( light blue TB #1 home) Reps/Minutes 10 Comments cued stable pelvis bridges Supine Exercise Name HEP reviewed Resistance added Y TB around knees Reps/Minutes x10 Comments painfree, cued core and glut fac lift IT band stretch Supine Exercise Name RIDDLER OPERATOR provided manual support, unable get ITb stretch only HS and calf Side bilateral Resistance in PT only Equipment Used manual Reps/Minutes 30x2 Comments to challenging performing self LTR Supine Exercise Name HEP review Side bilateral Reps/Minutes x10 Comments cued keep pelvis still piriformis stretch Side bilateral Reps/Minutes 30x2 Comments cradling knee towards chest while rested on opposite knee Sitting Exercises Piriformis stretch Sitting Exercise Name Piriformis stretch- trialed but increase L lateral leg pain- DC Side bilateral Reps/Minutes 1x30 Comments Pt reports some discomfort in lateral side of leg in sitting . Other Exercises Cat/Cow Comments vc for form, max cues for cat position - improves w/ repetition tactile cue quadruped UE ext Other Exercise Name Added LE then UE ext Reps/Minutes 2x10 Comments improved core stability pipo pose Reps/Minutes 30x2 Comments good form and back stretch thread the needle Side bilateral Reps/Minutes x10, cued pause 3 sec stretch Comments vc for slower pacing, drop shoulder Gait Training Gait Activity no AD Description improve posturing and foot clearance Distance/Duration 170 ft Treatment Focus upright posture, increase stride and foot clearance Comments cued knee extension into heel strike, increase stride and foot clearance with good demonstration. foot clearance improved 75% time. Neuro Re-Education Treatment Balance Activities jose angel stepping Details fwd/bwd/lateral Surface firm Equipment 5 hurdles Reps/Duration 2 laps each Comments cued feet/ trunk forward vinny lateral stepping. PT-OP-R Modalities Start: 05/16/22 19:55 Freq: Status: Active Protocol: Document 06/01/22 13:02 AMB (Rec: 06/01/22 13:46 AMB [id number]) Electric Stimulation Electric Stimulation Interferential Current (IFC) Body Location B low back Duration (Minutes) 15 Patient Position Hooklying Combined With Heat/Cold Hot Pack PT-OP-T Assessment and Plan Start: 05/16/22 19:55 Freq: Status: Active Protocol: Document 06/15/22 13:50 SP (Rec: 06/15/22 14:44 SP [id number]) Physical Therapy Assessment Goals Two Impairment Transfers Short Term Goal (STG) Maggi will roll over in bed without an increase in back pain. 06/08/22: reports getting better especially after stretches before gets up but still some pain. STG Duration 4 weeks progressing 06/08 [facility] Goal (LTG) Maggi will move from supine to standing in the morning after doing her exercises without an increase in back pain. 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 06/08/22 unsure if understands but states able to stand up to 3 hours before has to sit down due to LBP but at times if hurries causes increase pain, no time identified. 06/15/22: able to stand 30-60 min cooking in kitchen before LB starts to hurt and needs sit down or goes lay down and do stretches to make go away. STG Duration 4 weeks progressing 06/15/22 [facility] Goal (LTG) Maggi will walk for 30 minutes without an increase in bilateral hip pain. 06/08/22: GOAL MET: post injection hasn't had hip pain March or Apr. 06/15/22: able to stand 30-60 min cooking in kitchen before LB starts to hurt and needs sit down or goes lay down and do stretches to make go away. LTG Duration 8 weeks GOAL MET 06/08/22 Assessment Summary Assessment Pt improved foot clearance post jose angel stepping and gait end tx 75% time. She has more ROM/ mobility with HEP, able to progress quadruped LE ext stability continue atd home. Physical Therapy Plan Frequency and Duration Frequency of Treatment 2x/Week Duration of treatment (weeks) 8 Plan of Care Start Date 05/17/22 Plan of Care End Date 07/12/22 Therapeutic Interventions Therapeutic Interventions Balance Training,Gait Training ,Home Exercise Program,Joint Mobilizations,Manual Therapy, Neuromuscular Re-education, Self-Care/Home Management, Therapeutic Activities, Therapeutic Exercises Modalities Cold Pack/Ice Massage,Electric Stimulation,Hot Packs, Traction- Mechanical Next Visit Focus/Plan Next Note Type Treatment Note Next Visit Plan Add step ups, band walk next tx. Continue standing balance/ gait for improved foot clerance/stride length for safety gait. POC: Progress hip mobility and core stabilization HEP
--- NOTE | 2022-06-17 09:47 | PT.OTN ---
Current Diagnoses Parkinson's disease (06/17/22) Spondylosis without myelopathy or radiculopathy, lumbar region (06/17/22) Spinal stenosis, lumbar region without neurogenic claudication (06/17/22) Trochanteric bursitis, right hip (06/17/22) Physical Therapy Treatment Note PT-OP-A Visit Information Start: 05/16/22 19:55 Freq: Status: Active Protocol: Document 06/17/22 08:59 TS (Rec: 06/17/22 09:51 TS [id number]) Out-Patient Physical Therapy Visit Information Visit Information Visit Type Treatment Note Visit Note DALTON Zepeda instructed pt HEP review while under direct supervision and guidence of SUPPLY CHAIN ASSISTANT Corinne. Visit Start Time 09:02 Visit Stop Time 09:47 Total Visit Minutes 45 Visit Number 9 Number of SUPPLY CHAIN ASSISTANT Visits 4 PT-OP-B Current Condition Start: 05/16/22 19:55 Freq: Status: Active Protocol: Document 05/17/22 13:01 AMB (Rec: 05/17/22 13:20 AMB [id number]) Current Condition History of Current Condition Onset Date actue exacerbation of chronic pain Current Complaints back pain History of Current Condition Maggi attends for back pain, parkinsons. Standing increases the pain. Rolling over in bed is painful and wakes her up. Does do BIG exercises and overall feels better while moving, standing stationary is the most painful . She cooks a lot and this is painful for her. When waking up legs feel weak. Has had PD for years, does notice freezing vinny in doorways, difficulty walking backwards. Treatment Goals Patient/Caregiver Goals STand, roll over less back pain, walking less hip pain bilateral Personal Factors Other Personal Factors That May Effect Parkinsons Therapy/Recovery PT-OP-C Subjective Start: 05/16/22 19:55 Freq: Status: Active Protocol: Document 06/17/22 08:59 TS (Rec: 06/17/22 09:51 TS [id number]) OP-PT Subjective Patient Comments Patient Comments Pt reports her R low back is hurting this morning and rates it 8/10. She was having pain while walking around [employer] for 30 mins in her back but not in her hip. She does appear to be more tremulous in UE and trunk during session. Continues trunk repositioning . PT-OP-G Mobility & Gait Start: 05/16/22 19:55 Freq: Status: Active Protocol: Document 05/17/22 13:45 AMB (Rec: 05/21/22 21:33 AMB [id number]-) OP Mobility Evaluation Bed Mobility Rolling pain with rolling over in bed OP Gait Assessment Comments Gait Comments Freezing at doorway, difficulty with turns, reduced trunk rotation PT-OP-J Posture/Palpation/Skin Start: 05/16/22 19:55 Freq: Status: Active Protocol: Document 05/17/22 13:45 AMB (Rec: 05/21/22 21:33 AMB [id number]-) Posture Evaluation Comments Posture Comments Flat lumbar spine Palpation Assessment Location One Palpation Findings Soft Tissue Tightness, Tenderness Palpation Details lumbar paraspinals hypertonic PT-OP-K Range of Motion Start: 05/16/22 19:55 Freq: Status: Active Protocol: Document 05/20/22 13:00 AMB (Rec: 05/20/22 15:50 AMB [id number]) Lumbar Spine Range of Motion Lumbar Spine Passive Degrees Testing Position Standing Flexion 50 Extension 15 Lateral Flexion Left 10 Lateral Flexion Right 15 PT-OP-Q Treatments Start: 05/16/22 19:55 Freq: Status: Active Protocol: Document 06/17/22 08:59 TS (Rec: 06/17/22 09:51 TS [id number]) Therapeutic Exercises Supine Exercises single knee to chest Side bilateral Reps/Minutes 30x2 Comments good form and stretch response , reports helped with her pain symptoms. Other Exercises Cat/Cow Other Exercise Name with lateral pelvic sidebend/ tail wags Equipment Used Mat table Reps/Minutes 2x30 Comments vc for form, max cues for cat position - improves w/ repetition tactile cue pipo pose Equipment Used Mat table Reps/Minutes 30x2 Comments good form and back stretch Manual Therapy Treatment Soft Tissue Mobilization LB Body Location B QL, paraspinals Mobilization Type Cross-Friction,Strumming Intensity/Depth Moderate Body Position Prone Comments good feedback decrease LB muscle tightness PT-OP-R Modalities Start: 05/16/22 19:55 Freq: Status: Active Protocol: Document 06/17/22 08:59 TS (Rec: 06/17/22 09:51 TS [id number]) Electric Stimulation Electric Stimulation Interferential Current (IFC) Body Location B low back Duration (Minutes) 10 Intensity 10 Patient Position Hooklying Combined With Heat/Cold Hot Pack PT-OP-T Assessment and Plan Start: 05/16/22 19:55 Freq: Status: Active Protocol: Document 06/17/22 08:59 TS (Rec: 06/17/22 09:51 TS [id number]) Physical Therapy Assessment Goals Two Impairment Transfers Short Term Goal (STG) Maggi will roll over in bed without an increase in back pain. 06/08/22: reports getting better especially after stretches before gets up but still some pain. STG Duration 4 weeks progressing 06/08 Mission Manager Goal (LTG) Maggi will move from supine to standing in the morning after doing her exercises without an increase in back pain. 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 06/08/22 unsure if understands but states able to stand up to 3 hours before has to sit down due to LBP but at times if hurries causes increase pain, no time identified. 06/15/22: able to stand 30-60 min cooking in kitchen before LB starts to hurt and needs sit down or goes lay down and do stretches to make go away. STG Duration 4 weeks progressing 06/15/22 Shelter Goal (LTG) Maggi will walk for 30 minutes without an increase in bilateral hip pain. 06/08/22: GOAL MET: post injection hasn't had hip pain March or Apr. 06/15/22: able to stand 30-60 min cooking in kitchen before LB starts to hurt and needs sit down or goes lay down and do stretches to make go away. LTG Duration 8 weeks GOAL MET 06/08/22 Assessment Summary Assessment Due to pt's flare up in pain in R lower back, unable to progress exercise this session . She responded well to manual therapy, stretching and estim with a decrease in pain from 03/30 to 12/28. Educated her on taking shorter walks at [employer] or taking more breaks while walking to help limit discomfort in back. She will continue to benefit from skilled intervention to improve core strength, gait/ balance training and bed mobility. Physical Therapy Plan Frequency and Duration Frequency of Treatment 2x/Week Duration of treatment (weeks) 8 Plan of Care Start Date 05/17/22 Plan of Care End Date 07/12/22 Therapeutic Interventions Therapeutic Interventions Balance Training,Gait Training ,Home Exercise Program,Joint Mobilizations,Manual Therapy, Neuromuscular Re-education, Self-Care/Home Management, Therapeutic Activities, Therapeutic Exercises Modalities Cold Pack/Ice Massage,Electric Stimulation,Hot Packs, Traction- Mechanical Next Visit Focus/Plan Next Note Type Progress Note Next Visit Plan 10th visit progress note due, next visit not with primary PT . Add step ups, band walk next tx. Continue standing balance/ gait for improved foot clerance/stride length for safety gait. Trial standing core ex, wood chops/ side stepping with TB. POC: Progress hip mobility and core stabilization HEP
--- NOTE | 2022-06-20 17:11 | PT.OTN ---
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) Spinal stenosis, lumbar region without neurogenic claudication (06/20/22) Trochanteric bursitis, right hip (06/20/22) Physical Therapy Treatment Note PT-OP-A Visit Information Start: 05/16/22 19:55 Freq: Status: Active Protocol: Document 06/20/22 13:52 LRN (Rec: 06/20/22 17:09 LRN [id number]) Out-Patient Physical Therapy Visit Information Visit Information Visit Type Progress Note Visit Start Time 13:52 Visit Stop Time 14:41 Total Visit Minutes 49 Visit Number 10 Evaluation Information Evaluation Date 05/17/22 PT-OP-B Current Condition Start: 05/16/22 19:55 Freq: Status: Active Protocol: Document 05/17/22 13:01 AMB (Rec: 05/17/22 13:20 AMB [id number]) Current Condition History of Current Condition Onset Date actue exacerbation of chronic pain Current Complaints back pain History of Current Condition Maggi attends for back pain, parkinsons. Standing increases the pain. Rolling over in bed is painful and wakes her up. Does do BIG exercises and overall feels better while moving, standing stationary is the most painful . She cooks a lot and this is painful for her. When waking up legs feel weak. Has had PD for years, does notice freezing vinny in doorways, difficulty walking backwards. Treatment Goals Patient/Caregiver Goals STand, roll over less back pain, walking less hip pain bilateral Personal Factors Other Personal Factors That May Effect Parkinsons Therapy/Recovery PT-OP-C Subjective Start: 05/16/22 19:55 Freq: Status: Active Protocol: Document 06/20/22 13:52 LRN (Rec: 06/20/22 17:09 LRN [id number]) OP-PT Subjective Patient Comments Patient Comments Initially was so weak and tired and couldn't walk. States her back hurt a lot after last session. EStim has been helpful and can walk better. Patient Reported Progress Improving PT-OP-G Mobility & Gait Start: 05/16/22 19:55 Freq: Status: Active Protocol: Document 05/17/22 13:45 AMB (Rec: 05/21/22 21:33 AMB [id number]) OP Mobility Evaluation Bed Mobility Rolling pain with rolling over in bed OP Gait Assessment Comments Gait Comments Freezing at doorway, difficulty with turns, reduced trunk rotation PT-OP-J Posture/Palpation/Skin Start: 05/16/22 19:55 Freq: Status: Active Protocol: Document 05/17/22 13:45 AMB (Rec: 05/21/22 21:33 AMB [id number]) Posture Evaluation Comments Posture Comments Flat lumbar spine Palpation Assessment Location One Palpation Findings Soft Tissue Tightness, Tenderness Palpation Details lumbar paraspinals hypertonic PT-OP-K Range of Motion Start: 05/16/22 19:55 Freq: Status: Active Protocol: Document 06/20/22 13:52 LRN (Rec: 06/20/22 17:09 LRN [id number]) Hip Goniometric Range of Motion Hip Right Passive Straight Leg Raise 70 Abduction 35 Internal Rotation 35 External Rotation 55 Left Passive Testing Position Supine Straight Leg Raise 70 Abduction 30 Internal Rotation 20 External Rotation 65 PT-OP-Q Treatments Start: 05/16/22 19:55 Freq: Status: Active Protocol: Document 06/20/22 13:52 LRN (Rec: 06/20/22 17:09 LRN [id number]) Therapeutic Exercises Supine Exercises Supine<>Sit Supine Exercise Name Transfer training with TA tight Reps/Minutes 10' Hip PROM Supine Exercise Name Hip PROM Side bilateral Reps/Minutes 6' Comments ROM taken TA Supine Exercise Name Supine holding with breathing and with cough Reps/Minutes 10' Manual Therapy Treatment Joint Mobilizations SIJ Joint R SIJ/L SIJ Direction Correcting an anteriorly rotated innominate/Posterior rot L SIJ Body Position Supine Reps/Duration 13' PT-OP-R Modalities Start: 05/16/22 19:55 Freq: Status: Active Protocol: Document 06/20/22 13:52 LRN (Rec: 06/20/22 17:09 LRN [id number]) Electric Stimulation Electric Stimulation Interferential Current (IFC) Body Location B low back Duration (Minutes) 10 Intensity 8 Patient Position Hooklying Combined With Heat/Cold Hot Pack PT-OP-T Assessment and Plan Start: 05/16/22 19:55 Freq: Status: Active Protocol: Document 06/20/22 13:52 LRN (Rec: 06/20/22 17:09 LRN [id number]) Physical Therapy Assessment Evaluation Complexity Number of Body Systems Impaired 3 Clinical Presentation at Evaluation Evolving Impairments Impairments Activity Tolerance,Balance, Functional Activities, Functional Mobility,Gait,Pain, Posture,ROM,Strength Goals Two Impairment Transfers Short Term Goal (STG) Maggi will roll over in bed without an increase in back pain. 06/08/22: reports getting better especially after stretches before gets up but still some pain. STG Duration 4 weeks progressing 06/08 Senior Living Goal (LTG) Maggi will move from supine to standing in the morning after doing her exercises without an increase in back pain. 06/20/22: Pain persists. LTG Duration 8 weeks One Impairment Back pain Short Term Goal (STG) Maggi will stand to pulp cooker for 30 minutes without an increase in her baseline back pain. 06/08/22 unsure if understands but states able to stand up to 3 hours before has to sit down due to LBP but at times if hurries causes increase pain, no time identified. 06/15/22: able to stand 30-60 min cooking in kitchen before LB starts to hurt and needs sit down or goes lay down and do stretches to make go away. 06/20/22: More pain with standing 1 hr to cook meal. STG Duration 4 weeks progressing 06/15/22 Genetic Coordinator Goal (LTG) Maggi will walk for 30 minutes without an increase in bilateral hip pain. 06/08/22: GOAL MET: post injection hasn't had hip pain March or Apr. 06/15/22: able to stand 30-60 min cooking in kitchen before LB starts to hurt and needs sit down or goes lay down and do stretches to make go away. 06/20/22: Sometimes pain is worse with walking. LTG Duration 8 weeks GOAL MET 06/08/22 Assessment Summary Assessment Pt has shown some improvement in her pain complaints and greater tolerance to activities with pain decreased . She demonstrates decreased R hip ER and L hip IR & AB PROM ; therefore further stretching would be beneficial. R innominate is anteriorly rotated/L posteriorly rotated; mostly corrected with JMT. Pt has had some relief of her back and bilateral hip pain that limits her ability to stand, walk, and roll over in bed. Her Parkinson's is hindering her ability to progress due to stiffnessness and mobility difficulty with gait and transfers. Her symptoms continue to improve with movement and worsen with being stationary. I recommend continuation of physical theray for an exercise program that progresses her core stability and hip/lumbar flexibility and improving her stability with gait as her Parkinson's hinders her ability to progress. Physical Therapy Plan Frequency and Duration Frequency of Treatment 2x/Week Duration of treatment (weeks) 8 Plan of Care Start Date 06/20/22 Plan of Care End Date 08/19/22 Therapeutic Interventions Therapeutic Interventions Balance Training,Gait Training ,Home Exercise Program,Joint Mobilizations,Manual Therapy, Neuromuscular Re-education, Self-Care/Home Management, Therapeutic Activities, Therapeutic Exercises Modalities Cold Pack/Ice Massage,Electric Stimulation,Hot Packs, Traction- Mechanical Next Visit Focus/Plan Next Note Type Treatment Note Next Visit Plan Add stretch for R hip ER and L hip IR & AB to improve mobility. Core stabilization to minimize back pain. Add step ups, band walk next tx. Continue standing balance/gait for improved foot clerance/ stride length for safety gait. Trial standing core ex, wood chops/ side stepping with TB. POC: Progress hip mobility and core stabilization HEP
--- NOTE | 2022-06-20 17:12 | PT.OPPOC ---
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) Spinal stenosis, lumbar region without neurogenic claudication (06/20/22) Trochanteric bursitis, right hip (06/20/22) Visit Care Team Role Provider Type Rocio Camarillo PA-C Primary Care Provider Non-Staff Specialty: [facility] Address: [address] [place] [address], [id number] Email: Jacob Ferrari MD Attending Provider Physician Referring Provider Specialty: Orthopedics Orthopedic Surgery [facility] Address: [address] [place] [address], [id number] Email: [email or web address] Plan Of Care PT-OP-T Assessment and Plan Start: 05/16/22 19:55 Freq: Status: Active Protocol: Document 06/20/22 13:52 LRN (Rec: 06/20/22 17:09 LRN [id number]) Physical Therapy Assessment Evaluation Complexity Number of Body Systems Impaired 3 Clinical Presentation at Evaluation Evolving Impairments Impairments Activity Tolerance,Balance, Functional Activities, Functional Mobility,Gait,Pain, Posture,ROM,Strength Goals Two Impairment Transfers Short Term Goal (STG) Maggi will roll over in bed without an increase in back pain. 06/08/22: reports getting better especially after stretches before gets up but still some pain. STG Duration 4 weeks progressing 06/08 Oil Field Rig Builder Goal (LTG) Maggi will move from supine to standing in the morning after doing her exercises without an increase in back pain. 06/20/22: Pain persists. 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 06/08/22 unsure if understands but states able to stand up to 3 hours before has to sit down due to LBP but at times if hurries causes increase pain, no time identified. 06/15/22: able to stand 30-60 min cooking in kitchen before LB starts to hurt and needs sit down or goes lay down and do stretches to make go away. 06/20/22: More pain with standing 1 hr to cook meal. STG Duration 4 weeks progressing 06/15/22 Snf Goal (LTG) Maggi will walk for 30 minutes without an increase in bilateral hip pain. 06/08/22: GOAL MET: post injection hasn't had hip pain March or Apr. 06/15/22: able to stand 30-60 min cooking in kitchen before LB starts to hurt and needs sit down or goes lay down and do stretches to make go away. 06/20/22: Sometimes pain is worse with walking. LTG Duration 8 weeks GOAL MET 06/08/22 Assessment Summary Assessment Pt has shown some improvement in her pain complaints and greater tolerance to activities with pain decreased . She demonstrates decreased R hip ER and L hip IR & AB PROM ; therefore further stretching would be beneficial. R innominate is anteriorly rotated/L posteriorly rotated; mostly corrected with JMT. Pt has had some relief of her back and bilateral hip pain that limits her ability to stand, walk, and roll over in bed. Her Parkinson's is hindering her ability to progress due to stiffnessness and mobility difficulty with gait and transfers. Her symptoms continue to improve with movement and worsen with being stationary. I recommend continuation of physical theray for an exercise program that progresses her core stability and hip/lumbar flexibility and improving her stability with gait as her Parkinson's hinders her ability to progress. Physical Therapy Plan Frequency and Duration Frequency of Treatment 2x/Week Duration of treatment (weeks) 8 Plan of Care Start Date 06/20/22 Plan of Care End Date 08/19/22 Therapeutic Interventions Therapeutic Interventions Balance Training,Gait Training ,Home Exercise Program,Joint Mobilizations,Manual Therapy, Neuromuscular Re-education, Self-Care/Home Management, Therapeutic Activities, Therapeutic Exercises Modalities Cold Pack/Ice Massage,Electric Stimulation,Hot Packs, Traction- Mechanical Next Visit Focus/Plan Next Note Type Treatment Note Next Visit Plan Add stretch for R hip ER and L hip IR & AB to improve mobility. Core stabilization to minimize back pain. Add step ups, band walk next tx. Continue standing balance/gait for improved foot clerance/ stride length for safety gait. Trial standing core ex, wood chops/ side stepping with TB. POC: Progress hip mobility and core stabilization HEP Plan of Care Dates Plan of Care Start Date 06/20/22 Plan of Care End Date 08/19/22 Electronically Signed by: Kimberly Browne, PT 06/20/22 0933 If you are in agreement with this Plan of Care, please return a signed and dated copy. I have reviewed this Plan of Care and certify that the skilled therapy services above are required to meet the patient?s needs. Physician Signature Date Printed Name and Credentials Clinical Instructor Signature Printed Name and Credentials
--- NOTE | 2022-06-20 17:14 | PT-OP ANOTE ---
Late entry of pt Questionnaire received. SANDRA is 30/50 (20-39% impaired). Pain Diagram: Pain in L low back/Hip and L knee is rated 8/10.
--- NOTE | 2022-06-22 15:22 | PT.OTN ---
Current Diagnoses Parkinson's disease (06/22/22) Spondylosis without myelopathy or radiculopathy, lumbar region (06/22/22) Spinal stenosis, lumbar region without neurogenic claudication (06/22/22) Trochanteric bursitis, right hip (06/22/22) Physical Therapy Treatment Note PT-OP-A Visit Information Start: 05/16/22 19:55 Freq: Status: Active Protocol: Document 06/22/22 14:22 TS (Rec: 06/22/22 15:36 TS [id number]) Out-Patient Physical Therapy Visit Information Visit Information Visit Type Treatment Note Visit Note SPTA plead session with GIS SOFTWARE ENGINEER Corinne supervising. Spouse reports he is seeing an improvment in her walking and sleeping. She is sleeping well and not waking up due to back pain. Visit Start Time 14:40 Visit Stop Time 15:22 Total Visit Minutes 42 Visit Number 11 Number of GIS SOFTWARE ENGINEER Visits 1 PT-OP-B Current Condition Start: 05/16/22 19:55 Freq: Status: Active Protocol: Document 05/17/22 13:01 AMB (Rec: 05/17/22 13:20 AMB [id number]) Current Condition History of Current Condition Onset Date actue exacerbation of chronic pain Current Complaints back pain History of Current Condition Maggi attends for back pain, parkinsons. Standing increases the pain. Rolling over in bed is painful and wakes her up. Does do BIG exercises and overall feels better while moving, standing stationary is the most painful . She cooks a lot and this is painful for her. When waking up legs feel weak. Has had PD for years, does notice freezing vinny in doorways, difficulty walking backwards. Treatment Goals Patient/Caregiver Goals STand, roll over less back pain, walking less hip pain bilateral Personal Factors Other Personal Factors That May Effect Parkinsons Therapy/Recovery PT-OP-C Subjective Start: 05/16/22 19:55 Freq: Status: Active Protocol: Document 06/22/22 14:22 TS (Rec: 06/22/22 15:36 TS [id number]) OP-PT Subjective Patient Comments Patient Comments Pt reports she is not having any pain today but has some tightness in her back upon arrival. She hasn't been walking at [employer] due to raining outside. PT-OP-G Mobility & Gait Start: 05/16/22 19:55 Freq: Status: Active Protocol: Document 05/17/22 13:45 AMB (Rec: 05/21/22 21:33 AMB [id number]) OP Mobility Evaluation Bed Mobility Rolling pain with rolling over in bed OP Gait Assessment Comments Gait Comments Freezing at doorway, difficulty with turns, reduced trunk rotation PT-OP-J Posture/Palpation/Skin Start: 05/16/22 19:55 Freq: Status: Active Protocol: Document 05/17/22 13:45 AMB (Rec: 05/21/22 21:33 AMB [id number]) Posture Evaluation Comments Posture Comments Flat lumbar spine Palpation Assessment Location One Palpation Findings Soft Tissue Tightness, Tenderness Palpation Details lumbar paraspinals hypertonic PT-OP-K Range of Motion Start: 05/16/22 19:55 Freq: Status: Active Protocol: Document 06/20/22 13:52 LRN (Rec: 06/20/22 17:09 LRN [id number]) Hip Goniometric Range of Motion Hip Right Passive Straight Leg Raise 70 Abduction 35 Internal Rotation 35 External Rotation 55 Left Passive Testing Position Supine Straight Leg Raise 70 Abduction 30 Internal Rotation 20 External Rotation 65 PT-OP-Q Treatments Start: 05/16/22 19:55 Freq: Status: Active Protocol: Document 06/22/22 14:22 TS (Rec: 06/22/22 15:36 TS [id number]) Therapeutic Exercises Supine Exercises ER stretch Supine Exercise Name Figure 4 stretch supine Side bilateral Reps/Minutes 2x30 Comments More comfortable in supine than sitting. piriformis stretch Side bilateral Reps/Minutes 30x2 Comments cradling knee towards chest while rested on opposite knee Sidelying Exercises open book Side bilateral Reps/Minutes 1x10 Comments vc for scap setting prior, slower pacing Standing Exercises Step outs Side bilateral Resistance LVL 1 Reps/Minutes 2x10 Comments Cues for keeping feet straight ahead and posture Hip AROM ABD Side bilateral Resistance AROM Equipment Used Handrail Reps/Minutes 2x15 Comments cues for eyes up and keeping foot straight Step Ups Equipment Used Stairs Reps/Minutes 2x10 Comments Cues for foot placement and upright posture. Sink Stretch Standing Exercise Name L/sink stretch with tail wags Equipment Used counter Comments Cues for sinking in to stretch . Other Exercises Cat/Cow Other Exercise Name Difficult on hands in quadruped Equipment Used Mat table Reps/Minutes 1x30 Comments vc for form, max cues for cat position - improves w/ repetition tactile cue pipo pose Equipment Used Mat table Reps/Minutes 30x2 Comments good form and back stretch PT-OP-R Modalities Start: 05/16/22 19:55 Freq: Status: Active Protocol: Document 06/20/22 13:52 LRN (Rec: 06/20/22 17:09 LRN [id number]) Electric Stimulation Electric Stimulation Interferential Current (IFC) Body Location B low back Duration (Minutes) 10 Intensity 8 Patient Position Hooklying Combined With Heat/Cold Hot Pack PT-OP-T Assessment and Plan Start: 05/16/22 19:55 Freq: Status: Active Protocol: Document 06/22/22 14:22 TS (Rec: 06/22/22 15:36 TS [id number]) Physical Therapy Assessment Goals Two Impairment Transfers Short Term Goal (STG) Maggi will roll over in bed without an increase in back pain. 06/08/22: reports getting better especially after stretches before gets up but still some pain. STG Duration 4 weeks progressing 06/08 Heavy Equipment Sales Manager Goal (LTG) Maggi will move from supine to standing in the morning after doing her exercises without an increase in back pain. 06/20/22: Pain persists. LTG Duration 8 weeks One Impairment Back pain Short Term Goal (STG) Maggi will stand to foreign food specialty cook for 30 minutes without an increase in her baseline back pain. 06/08/22 unsure if understands but states able to stand up to 3 hours before has to sit down due to LBP but at times if hurries causes increase pain, no time identified. 06/15/22: able to stand 30-60 min cooking in kitchen before LB starts to hurt and needs sit down or goes lay down and do stretches to make go away. 06/20/22: More pain with standing 1 hr to cook meal. STG Duration 4 weeks progressing 06/15/22 Heavy Equipment Sales Manager Goal (LTG) Maggi will walk for 30 minutes without an increase in bilateral hip pain. 06/08/22: GOAL MET: post injection hasn't had hip pain March or Apr. 06/15/22: able to stand 30-60 min cooking in kitchen before LB starts to hurt and needs sit down or goes lay down and do stretches to make go away. 06/20/22: Sometimes pain is worse with walking. LTG Duration 8 weeks GOAL MET 06/08/22 Assessment Summary Assessment Pt reported improvement in pain at end of session and decreased tightness in hips. Educated her on the benefits of hip ABD and side stepping while standing for long periods in kitchen. She will benefit from continued intervention to improve activity tolerance and functional mobiltiy. Physical Therapy Plan Frequency and Duration Frequency of Treatment 2x/Week Duration of treatment (weeks) 8 Plan of Care Start Date 06/20/22 Plan of Care End Date 08/19/22 Therapeutic Interventions Therapeutic Interventions Balance Training,Gait Training ,Home Exercise Program,Joint Mobilizations,Manual Therapy, Neuromuscular Re-education, Self-Care/Home Management, Therapeutic Activities, Therapeutic Exercises Modalities Cold Pack/Ice Massage,Electric Stimulation,Hot Packs, Traction- Mechanical Next Visit Focus/Plan Next Note Type Treatment Note Next Visit Plan Continue R hip ER streches and L IR. Assess step outs carryover and possibly add to HEP. trial bandwalks and ABD exercise.
--- NOTE | 2022-06-27 16:00 | PT.OTN ---
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/22) Spinal stenosis, lumbar region without neurogenic claudication (06/27/22) Trochanteric bursitis, right hip (06/27/22) Physical Therapy Treatment Note PT-OP-A Visit Information Start: 05/16/22 19:55 Freq: Status: Active Protocol: Document 06/27/22 14:30 AMB (Rec: 06/27/22 15:26 AMB [id number]) Out-Patient Physical Therapy Visit Information Visit Information Visit Type Treatment Note Visit Start Time 14:30 Visit Stop Time 15:15 Total Visit Minutes 45 Visit Number 12 PT-OP-B Current Condition Start: 05/16/22 19:55 Freq: Status: Active Protocol: Document 05/17/22 13:01 AMB (Rec: 05/17/22 13:20 AMB [id number]) Current Condition History of Current Condition Onset Date actue exacerbation of chronic pain Current Complaints back pain History of Current Condition Maggi attends for back pain, parkinsons. Standing increases the pain. Rolling over in bed is painful and wakes her up. Does do BIG exercises and overall feels better while moving, standing stationary is the most painful . She cooks a lot and this is painful for her. When waking up legs feel weak. Has had PD for years, does notice freezing vinny in doorways, difficulty walking backwards. Treatment Goals Patient/Caregiver Goals STand, roll over less back pain, walking less hip pain bilateral Personal Factors Other Personal Factors That May Effect Parkinsons Therapy/Recovery PT-OP-C Subjective Start: 05/16/22 19:55 Freq: Status: Active Protocol: Document 06/27/22 14:30 AMB (Rec: 06/27/22 15:26 AMB [id number]) OP-PT Subjective Patient Comments Patient Comments Pt reports improving pain, continues to have difficulty with bed mobility, feels like she is baby stepping more. PT-OP-G Mobility & Gait Start: 05/16/22 19:55 Freq: Status: Active Protocol: Document 05/17/22 13:45 AMB (Rec: 05/21/22 21:33 AMB [id number]) OP Mobility Evaluation Bed Mobility Rolling pain with rolling over in bed OP Gait Assessment Comments Gait Comments Freezing at doorway, difficulty with turns, reduced trunk rotation PT-OP-J Posture/Palpation/Skin Start: 05/16/22 19:55 Freq: Status: Active Protocol: Document 05/17/22 13:45 AMB (Rec: 05/21/22 21:33 AMB [id number]) Posture Evaluation Comments Posture Comments Flat lumbar spine Palpation Assessment Location One Palpation Findings Soft Tissue Tightness, Tenderness Palpation Details lumbar paraspinals hypertonic PT-OP-K Range of Motion Start: 05/16/22 19:55 Freq: Status: Active Protocol: Document 06/20/22 13:52 LRN (Rec: 06/20/22 17:09 LRN [id number]) Hip Goniometric Range of Motion Hip Right Passive Straight Leg Raise 70 Abduction 35 Internal Rotation 35 External Rotation 55 Left Passive Testing Position Supine Straight Leg Raise 70 Abduction 30 Internal Rotation 20 External Rotation 65 PT-OP-Q Treatments Start: 05/16/22 19:55 Freq: Status: Active Protocol: Document 06/27/22 14:30 AMB (Rec: 06/28/22 08:10 AMB [id number]) Therapeutic Exercises Supine Exercises ER stretch Supine Exercise Name Figure 4 stretch supine Side bilateral Reps/Minutes 2x30 Comments More comfortable in supine than sitting. bent knee fall out Supine Exercise Name HEP reviewed Side bilateral Resistance YTB ( light blue TB #1 home) Reps/Minutes 10 Comments cued stable pelvis Sidelying Exercises hip abduction Side bilateral Reps/Minutes 2x10 Comments heavy cues needed for form clamshell Side bilateral Reps/Minutes 2x10 Standing Exercises Sink Stretch Standing Exercise Name L/sink stretch with tail wags Equipment Used counter Comments Cues for sinking in to stretch . Other Exercises Cat/Cow Other Exercise Name Difficult on hands in quadruped Equipment Used Mat table Reps/Minutes 1x30 Comments vc for form, max cues for cat position - improves w/ repetition tactile cue pipo pose Equipment Used Mat table Reps/Minutes 30x2 Comments good form and back stretch Therapeutic Activity Therapeutic Activity bed mobility Reps/Minutes 10 min Comments punch, bridge, use momentum, bend knees- improvement since eval, pt continues to have difficulty with scooting PT-OP-R Modalities Start: 05/16/22 19:55 Freq: Status: Active Protocol: Document 06/27/22 14:30 AMB (Rec: 06/28/22 08:10 AMB [id number]) Electric Stimulation Electric Stimulation Interferential Current (IFC) Body Location B low back Duration (Minutes) 10 Intensity 8 Patient Position Hooklying Combined With Heat/Cold Hot Pack PT-OP-T Assessment and Plan Start: 05/16/22 19:55 Freq: Status: Active Protocol: Document 06/27/22 14:30 AMB (Rec: 06/27/22 15:26 [facility] [id number]) Physical Therapy Assessment Goals Two Impairment Transfers Short Term Goal (STG) Maggi will roll over in bed without an increase in back pain. 06/08/22: reports getting better especially after stretches before gets up but still some pain. STG Duration 4 weeks progressing 06/08 Top Precipitator Operator Helper Goal (LTG) Maggi will move from supine to standing in the morning after doing her exercises without an increase in back pain. 06/20/22: Pain persists. 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 06/08/22 unsure if understands but states able to stand up to 3 hours before has to sit down due to LBP but at times if hurries causes increase pain, no time identified. 06/15/22: able to stand 30-60 min cooking in kitchen before LB starts to hurt and needs sit down or goes lay down and do stretches to make go away. 06/20/22: More pain with standing 1 hr to cook meal. STG Duration 4 weeks progressing 06/15/22 Top Precipitator Operator Helper Goal (LTG) Maggi will walk for 30 minutes without an increase in bilateral hip pain. 06/08/22: GOAL MET: post injection hasn't had hip pain March or Apr. 06/15/22: able to stand 30-60 min cooking in kitchen before LB starts to hurt and needs sit down or goes lay down and do stretches to make go away. 06/20/22: Sometimes pain is worse with walking. LTG Duration 8 weeks GOAL MET 06/08/22 Assessment Summary Assessment Discussed with pt's that he could buy TENS unit at [employer] [email or web address] per pt's request. Pt's back pain does appear to be decreasing, but hip abduction is weak and pt continues to have stiffness/ movement changes associated with her PD diagnosis that impacts her pain. Physical Therapy Plan Frequency and Duration Frequency of Treatment 2x/Week Duration of treatment (weeks) 8 Plan of Care Start Date 06/20/22 Plan of Care End Date 08/19/22 Therapeutic Interventions Therapeutic Interventions Balance Training,Gait Training ,Home Exercise Program,Joint Mobilizations,Manual Therapy, Neuromuscular Re-education, Self-Care/Home Management, Therapeutic Activities, Therapeutic Exercises Modalities Cold Pack/Ice Massage,Electric Stimulation,Hot Packs, Traction- Mechanical Next Visit Focus/Plan Next Note Type Treatment Note Next Visit Plan Continue R hip ER streches and L IR. Assess step outs carryover and possibly add to HEP. trial bandwalks and ABD exercise.
--- NOTE | 2022-06-30 16:14 | PT.OTN ---
Current Diagnoses Parkinson's disease (06/30/22) Spondylosis without myelopathy or radiculopathy, lumbar region (06/30/22) Spinal stenosis, lumbar region without neurogenic claudication (06/30/22) Trochanteric bursitis, right hip (06/30/22) Physical Therapy Treatment Note PT-OP-A Visit Information Start: 05/16/22 19:55 Freq: Status: Active Protocol: Document 06/30/22 15:23 LRN (Rec: 06/30/22 16:14 LRN [id number]) Out-Patient Physical Therapy Visit Information Visit Information Visit Type Treatment Note Visit Start Time 15:23 Visit Stop Time 16:11 Total Visit Minutes 48 Visit Number 13 PT-OP-B Current Condition Start: 05/16/22 19:55 Freq: Status: Active Protocol: Document 05/17/22 13:01 AMB (Rec: 05/17/22 13:20 AMB [id number]) Current Condition History of Current Condition Onset Date actue exacerbation of chronic pain Current Complaints back pain History of Current Condition Maggi attends for back pain, parkinsons. Standing increases the pain. Rolling over in bed is painful and wakes her up. Does do BIG exercises and overall feels better while moving, standing stationary is the most painful . She cooks a lot and this is painful for her. When waking up legs feel weak. Has had PD for years, does notice freezing vinny in doorways, difficulty walking backwards. Treatment Goals Patient/Caregiver Goals STand, roll over less back pain, walking less hip pain bilateral Personal Factors Other Personal Factors That May Effect Parkinsons Therapy/Recovery PT-OP-C Subjective Start: 05/16/22 19:55 Freq: Status: Active Protocol: Document 06/30/22 15:23 LRN (Rec: 06/30/22 16:14 LRN [id number]) OP-PT Subjective Patient Comments Patient Comments ............... PT-OP-G Mobility & Gait Start: 05/16/22 19:55 Freq: Status: Active Protocol: Document 05/17/22 13:45 AMB (Rec: 05/21/22 21:33 AMB [id number]) OP Mobility Evaluation Bed Mobility Rolling pain with rolling over in bed OP Gait Assessment Comments Gait Comments Freezing at doorway, difficulty with turns, reduced trunk rotation PT-OP-J Posture/Palpation/Skin Start: 05/16/22 19:55 Freq: Status: Active Protocol: Document 05/17/22 13:45 AMB (Rec: 05/21/22 21:33 AMB [id number]) Posture Evaluation Comments Posture Comments Flat lumbar spine Palpation Assessment Location One Palpation Findings Soft Tissue Tightness, Tenderness Palpation Details lumbar paraspinals hypertonic PT-OP-K Range of Motion Start: 05/16/22 19:55 Freq: Status: Active Protocol: Document 06/20/22 13:52 LRN (Rec: 06/20/22 17:09 LRN [id number]) Hip Goniometric Range of Motion Hip Right Passive Straight Leg Raise 70 Abduction 35 Internal Rotation 35 External Rotation 55 Left Passive Testing Position Supine Straight Leg Raise 70 Abduction 30 Internal Rotation 20 External Rotation 65 PT-OP-Q Treatments Start: 05/16/22 19:55 Freq: Status: Active Protocol: Document 06/30/22 15:23 LRN (Rec: 06/30/22 16:14 LRN [id number]) Therapeutic Exercises Supine Exercises Lateral Hip stretch Supine Exercise Name Lateral Hip stretch Side left Reps/Minutes 60 ER stretch Supine Exercise Name Figure 4 stretch supine w/10x active stretch Side right Reps/Minutes 2x30 Comments More comfortable in supine than sitting. bent knee fall out Supine Exercise Name HEP reviewed Side bilateral Resistance YTB ( light blue TB #1 home) Reps/Minutes 10 Comments cued stable pelvis piriformis stretch Supine Exercise Name Piriformis stretch Side left Reps/Minutes 60 x 1 Sidelying Exercises hip abduction Side bilateral Reps/Minutes 2x10 Comments heavy cues to keep pelvis neutral for proper form clamshell Side bilateral Reps/Minutes 2x10 Comments heavy cues to keep pelvis neutral for proper form Other Exercises pipo pose Equipment Used Mat table Reps/Minutes 30x2 Comments Minimal mvmt, good form and back stretch Self-Care/Home Management Treatment Education Patient Education Home Exercise Program Activities Self-Care/Home Management Activities Issued & reviewed HEP: R hip ER (fig 4) & L hip Piriformis and lateral hip stretch. PT-OP-R Modalities Start: 05/16/22 19:55 Freq: Status: Active Protocol: Document 06/30/22 15:23 LRN (Rec: 06/30/22 16:14 LRN [id number]) Electric Stimulation Electric Stimulation Interferential Current (IFC) Body Location B low back Duration (Minutes) 10 Intensity 17 Target/Sweep Sweep Patient Position Hooklying Combined With Heat/Cold Hot Pack Comments Extra time needed due to failure of one of the electrodes. PT-OP-T Assessment and Plan Start: 05/16/22 19:55 Freq: Status: Active Protocol: Document 06/30/22 15:23 LRN (Rec: 06/30/22 16:14 LRN [id number]) Physical Therapy Assessment Goals Two Impairment Transfers Short Term Goal (STG) Maggi will roll over in bed without an increase in back pain. 06/08/22: reports getting better especially after stretches before gets up but still some pain. STG Duration 4 weeks progressing 06/08 Prison Goal (LTG) Maggi will move from supine to standing in the morning after doing her exercises without an increase in back pain. 06/20/22: Pain persists. 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 06/08/22 unsure if understands but states able to stand up to 3 hours before has to sit down due to LBP but at times if hurries causes increase pain, no time identified. 06/15/22: able to stand 30-60 min cooking in kitchen before LB starts to hurt and needs sit down or goes lay down and do stretches to make go away. 06/20/22: More pain with standing 1 hr to cook meal. STG Duration 4 weeks progressing 06/15/22 Supervisory Investigative Specialist Goal (LTG) Maggi will walk for 30 minutes without an increase in bilateral hip pain. 06/08/22: GOAL MET: post injection hasn't had hip pain March or Apr. 06/15/22: able to stand 30-60 min cooking in kitchen before LB starts to hurt and needs sit down or goes lay down and do stretches to make go away. 06/20/22: Sometimes pain is worse with walking. LTG Duration 8 weeks GOAL MET 06/08/22 Assessment Summary Assessment Pt shows better understanding of neutral pelvis with hip AB & clamshell ex, but has difficulty maintaining neutral without phys cuing to ASIS'. Physical Therapy Plan Frequency and Duration Frequency of Treatment 2x/Week Duration of treatment (weeks) 8 Plan of Care Start Date 06/20/22 Plan of Care End Date 08/19/22 Next Visit Focus/Plan Next Note Type Treatment Note Next Visit Plan Discuss with pt TNS unit for home EStim use. Continue R hip ER and L IR stretching. Assess step outs carryover and possibly add to HEP. trial bandwalks and ABD exercise.
--- NOTE | 2022-07-04 22:33 | PT.OTN ---
Current Diagnoses Parkinson's disease (07/04/22) Spondylosis without myelopathy or radiculopathy, lumbar region (07/04/22) Spinal stenosis, lumbar region without neurogenic claudication (07/04/22) Trochanteric bursitis, right hip (07/04/22) Physical Therapy Treatment Note PT-OP-A Visit Information Start: 05/16/22 19:55 Freq: Status: Active Protocol: Document 07/04/22 13:45 AMB (Rec: 07/04/22 22:32 AMB [id number]-) Out-Patient Physical Therapy Visit Information Visit Information Visit Type Treatment Note Visit Start Time 13:45 Visit Stop Time 14:30 Total Visit Minutes 45 Visit Number 14 PT-OP-B Current Condition Start: 05/16/22 19:55 Freq: Status: Active Protocol: Document 05/17/22 13:01 AMB (Rec: 05/17/22 13:20 AMB [id number]) Current Condition History of Current Condition Onset Date actue exacerbation of chronic pain Current Complaints back pain History of Current Condition Maggi attends for back pain, parkinsons. Standing increases the pain. Rolling over in bed is painful and wakes her up. Does do BIG exercises and overall feels better while moving, standing stationary is the most painful . She cooks a lot and this is painful for her. When waking up legs feel weak. Has had PD for years, does notice freezing vinny in doorways, difficulty walking backwards. Treatment Goals Patient/Caregiver Goals STand, roll over less back pain, walking less hip pain bilateral Personal Factors Other Personal Factors That May Effect Parkinsons Therapy/Recovery PT-OP-C Subjective Start: 05/16/22 19:55 Freq: Status: Active Protocol: Document 07/04/22 13:45 AMB (Rec: 07/04/22 22:32 AMB [id number]-) OP-PT Subjective Patient Comments Patient Comments Pt states less back pain today . is looking into purchasing TENS unit. PT-OP-G Mobility & Gait Start: 05/16/22 19:55 Freq: Status: Active Protocol: Document 05/17/22 13:45 AMB (Rec: 05/21/22 21:33 AMB [id number]-) OP Mobility Evaluation Bed Mobility Rolling pain with rolling over in bed OP Gait Assessment Comments Gait Comments Freezing at doorway, difficulty with turns, reduced trunk rotation PT-OP-J Posture/Palpation/Skin Start: 05/16/22 19:55 Freq: Status: Active Protocol: Document 05/17/22 13:45 AMB (Rec: 05/21/22 21:33 AMB [id number]) Posture Evaluation Comments Posture Comments Flat lumbar spine Palpation Assessment Location One Palpation Findings Soft Tissue Tightness, Tenderness Palpation Details lumbar paraspinals hypertonic PT-OP-K Range of Motion Start: 05/16/22 19:55 Freq: Status: Active Protocol: Document 06/20/22 13:52 LRN (Rec: 06/20/22 17:09 LRN [id number]) Hip Goniometric Range of Motion Hip Right Passive Straight Leg Raise 70 Abduction 35 Internal Rotation 35 External Rotation 55 Left Passive Testing Position Supine Straight Leg Raise 70 Abduction 30 Internal Rotation 20 External Rotation 65 PT-OP-Q Treatments Start: 05/16/22 19:55 Freq: Status: Active Protocol: Document 07/04/22 13:45 AMB (Rec: 07/04/22 22:32 AMB [id number]-) Therapeutic Exercises Sidelying Exercises clamshell Side bilateral Reps/Minutes 2x10 Comments better form Sitting Exercises therapy ball Sitting Exercise Name pelvic tilts, TA Reps/Minutes 3 min STS Sitting Exercise Name added to HEP Equipment Used black table 19 Reps/Minutes x10 Comments cued scoot front, arms across chest, hip hinge slow descent, full stand Standing Exercises Sink Stretch Standing Exercise Name L/sink stretch with tail wags Equipment Used counter Comments Cues for sinking in to stretch . Other Exercises Cat/Cow Other Exercise Name Difficult on hands in quadruped Equipment Used Mat table Reps/Minutes 1x30 Comments vc for form, max cues for cat position - improves w/ repetition tactile cue quadruped UE ext Other Exercise Name Added LE then UE ext Reps/Minutes 2x10 Comments improved core stability pipo pose Equipment Used Mat table Reps/Minutes 30x2 Comments Minimal mvmt, good form and back stretch thread the needle Side bilateral Reps/Minutes x10, cued pause 3 sec stretch Comments vc for slower pacing, drop shoulder PT-OP-R Modalities Start: 05/16/22 19:55 Freq: Status: Active Protocol: Document 07/04/22 13:45 AMB (Rec: 07/04/22 22:33 AMB [id number]) Electric Stimulation Electric Stimulation Interferential Current (IFC) Body Location B low back Duration (Minutes) 10 Intensity 14 Target/Sweep Sweep Patient Position Sitting Combined With Heat/Cold Hot Pack PT-OP-T Assessment and Plan Start: 05/16/22 19:55 Freq: Status: Active Protocol: Document 07/04/22 13:58 AMB (Rec: 07/04/22 14:32 AMB [id number]) Physical Therapy Assessment Goals Two Impairment Transfers Short Term Goal (STG) Maggi will roll over in bed without an increase in back pain. 06/08/22: reports getting better especially after stretches before gets up but still some pain. STG Duration 4 weeks progressing 06/08 Political Advisor Goal (LTG) Maggi will move from supine to standing in the morning after doing her exercises without an increase in back pain. 06/20/22: Pain persists. LTG Duration 8 weeks One Impairment Back pain Short Term Goal (STG) Maggi will stand to industrial cook for 30 minutes without an increase in her baseline back pain. 06/08/22 unsure if understands but states able to stand up to 3 hours before has to sit down due to LBP but at times if hurries causes increase pain, no time identified. 06/15/22: able to stand 30-60 min cooking in kitchen before LB starts to hurt and needs sit down or goes lay down and do stretches to make go away. 06/20/22: More pain with standing 1 hr to cook meal. STG Duration 4 weeks progressing 06/15/22 Retirement Goal (LTG) Maggi will walk for 30 minutes without an increase in bilateral hip pain. 06/08/22: GOAL MET: post injection hasn't had hip pain March or Apr. 06/15/22: able to stand 30-60 min cooking in kitchen before LB starts to hurt and needs sit down or goes lay down and do stretches to make go away. 06/20/22: Sometimes pain is worse with walking. LTG Duration 8 weeks GOAL MET 06/08/22 Assessment Summary Assessment Pt with less back pain today, needed cues for good walking and sit to stand motions to avoid increase in back pain. Reviewed HEP which pt is doing well, pt reports good relief with counter top stretch, stiffness in morning continues , encouraged increased attentiont o amplitude with gait, sit to stand. Physical Therapy Plan Frequency and Duration Frequency of Treatment 2x/Week Duration of treatment (weeks) 8 Plan of Care Start Date 06/20/22 Plan of Care End Date 08/19/22 Therapeutic Interventions Therapeutic Interventions Balance Training,Gait Training ,Home Exercise Program,Joint Mobilizations,Manual Therapy, Neuromuscular Re-education, Self-Care/Home Management, Therapeutic Activities, Therapeutic Exercises Modalities Cold Pack/Ice Massage,Electric Stimulation,Hot Packs, Traction- Mechanical Next Visit Focus/Plan Next Note Type Treatment Note Next Visit Plan Continue R hip ER and L IR stretching. Assess step outs carryover and possibly add to HEP. trial bandwalks and ABD exercise.
--- NOTE | 2022-07-08 13:00 | PT.OTN ---
Addendum entered and electronically signed by Corinne Galeano PTA 07/08/22 15:57: Told pt and spouse if purchase stim unit to bring in with instructions and can provided hands on education on proper use. Original Note: Current Diagnoses Parkinson's disease (07/08/22) Spondylosis without myelopathy or radiculopathy, lumbar region (07/08/22) Spinal stenosis, lumbar region without neurogenic claudication (07/08/22) Trochanteric bursitis, right hip (07/08/22) Physical Therapy Treatment Note PT-OP-A Visit Information Start: 05/16/22 19:55 Freq: Status: Active Protocol: Document 07/08/22 12:09 TS (Rec: 07/08/22 15:29 TS [id number]) Out-Patient Physical Therapy Visit Information Visit Information Visit Type Treatment Note Visit Note SPTA [facility] lead treatment, supervised by ANTONIO Sun. Visit Start Time 12:15 Visit Stop Time 13:00 Total Visit Minutes 45 Visit Number 15 Number of BENEFITS SPECIALIST RECRUITER Visits 1 PT-OP-B Current Condition Start: 05/16/22 19:55 Freq: Status: Active Protocol: Document 05/17/22 13:01 AMB (Rec: 05/17/22 13:20 AMB [id number]) Current Condition History of Current Condition Onset Date actue exacerbation of chronic pain Current Complaints back pain History of Current Condition Maggi attends for back pain, parkinsons. Standing increases the pain. Rolling over in bed is painful and wakes her up. Does do BIG exercises and overall feels better while moving, standing stationary is the most painful . She cooks a lot and this is painful for her. When waking up legs feel weak. Has had PD for years, does notice freezing vinny in doorways, difficulty walking backwards. Treatment Goals Patient/Caregiver Goals STand, roll over less back pain, walking less hip pain bilateral Personal Factors Other Personal Factors That May Effect Parkinsons Therapy/Recovery PT-OP-C Subjective Start: 05/16/22 19:55 Freq: Status: Active Protocol: Document 07/08/22 12:09 TS (Rec: 07/08/22 15:29 TS [id number]) OP-PT Subjective Patient Comments Patient Comments Pt reports increase in pain Monday night, not sure what caused increase in pain. Reports went to massage therapist and it helped relieve her symptoms. Has not purchased tens unit. PT-OP-G Mobility & Gait Start: 05/16/22 19:55 Freq: Status: Active Protocol: Document 05/17/22 13:45 AMB (Rec: 05/21/22 21:33 AMB [id number]) OP Mobility Evaluation Bed Mobility Rolling pain with rolling over in bed OP Gait Assessment Comments Gait Comments Freezing at doorway, difficulty with turns, reduced trunk rotation PT-OP-J Posture/Palpation/Skin Start: 05/16/22 19:55 Freq: Status: Active Protocol: Document 05/17/22 13:45 AMB (Rec: 05/21/22 21:33 AMB [id number]-) Posture Evaluation Comments Posture Comments Flat lumbar spine Palpation Assessment Location One Palpation Findings Soft Tissue Tightness, Tenderness Palpation Details lumbar paraspinals hypertonic PT-OP-K Range of Motion Start: 05/16/22 19:55 Freq: Status: Active Protocol: Document 06/20/22 13:52 LRN (Rec: 06/20/22 17:09 LRN [id number]) Hip Goniometric Range of Motion Hip Right Passive Straight Leg Raise 70 Abduction 35 Internal Rotation 35 External Rotation 55 Left Passive Testing Position Supine Straight Leg Raise 70 Abduction 30 Internal Rotation 20 External Rotation 65 PT-OP-Q Treatments Start: 05/16/22 19:55 Freq: Status: Active Protocol: Document 07/08/22 12:09 TS (Rec: 07/08/22 15:29 TS [id number]) Therapeutic Exercises Sidelying Exercises clamshell Side bilateral Reps/Minutes 1x10 Comments L is weaker than R side, some discomfort in L Sitting Exercises therapy ball Sitting Exercise Name pelvic tilts, lateral tilts, marches Reps/Minutes 5 min Comments Marches 2x10 STS Equipment Used mat table Reps/Minutes 1x15 Comments Cues for hip hinge., WBOS Standing Exercises Sink Stretch Standing Exercise Name L/sink stretch Equipment Used counter Comments Cues for sinking in to stretch . Gait Training Gait Activity no AD Description Mirror for feedback Level of Assistance CGA Distance/Duration 25x6 Comments Pt demonstrates scissor gait. Provided cues for toe off, not crossing feet, posture. Self-Care/Home Management Treatment Education Caregiver Education Pt and spouse education on operation of tens unit, use of electrodes. Are looking to purchase for home use. PT-OP-R Modalities Start: 05/16/22 19:55 Freq: Status: Active Protocol: Document 07/04/22 13:45 AMB (Rec: 07/04/22 22:33 AMB [id number]) Electric Stimulation Electric Stimulation Interferential Current (IFC) Body Location B low back Duration (Minutes) 10 Intensity 14 Target/Sweep Sweep Patient Position Sitting Combined With Heat/Cold Hot Pack PT-OP-T Assessment and Plan Start: 05/16/22 19:55 Freq: Status: Active Protocol: Document 07/08/22 12:09 TS (Rec: 07/08/22 15:29 TS [id number]) Physical Therapy Assessment Goals Two Impairment Transfers Short Term Goal (STG) Maggi will roll over in bed without an increase in back pain. 06/08/22: reports getting better especially after stretches before gets up but still some pain. STG Duration 4 weeks progressing 06/08 Maintenance Mechanic Supervisor Goal (LTG) Maggi will move from supine to standing in the morning after doing her exercises without an increase in back pain. 06/20/22: Pain persists. 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 06/08/22 unsure if understands but states able to stand up to 3 hours before has to sit down due to LBP but at times if hurries causes increase pain, no time identified. 06/15/22: able to stand 30-60 min cooking in kitchen before LB starts to hurt and needs sit down or goes lay down and do stretches to make go away. 06/20/22: More pain with standing 1 hr to cook meal. STG Duration 4 weeks progressing 06/15/22 Nursing Home Goal (LTG) Maggi will walk for 30 minutes without an increase in bilateral hip pain. 06/08/22: GOAL MET: post injection hasn't had hip pain March or Apr. 06/15/22: able to stand 30-60 min cooking in kitchen before LB starts to hurt and needs sit down or goes lay down and do stretches to make go away. 06/20/22: Sometimes pain is worse with walking. LTG Duration 8 weeks GOAL MET 06/08/22 Assessment Summary Assessment Provided education to pt and spouse on proper use of tens unit and electrod pads before purchasing their own. Pt requires cues for decreased hip ER during clamshells, verbal and tactile cues for PPT on ex ball. During gait pt demonstrates scissor gait with rolling of ankles, more on R foot. Provided verbal and tactile cues for toeing off and not crossing R foot. Pt will benefit from continued intervention to improve gait for safe walks out in the community. Physical Therapy Plan Frequency and Duration Frequency of Treatment 2x/Week Duration of treatment (weeks) 8 Plan of Care Start Date 06/20/22 Plan of Care End Date 08/19/22 Therapeutic Interventions Therapeutic Interventions Balance Training,Gait Training ,Home Exercise Program,Joint Mobilizations,Manual Therapy, Neuromuscular Re-education, Self-Care/Home Management, Therapeutic Activities, Therapeutic Exercises Modalities Cold Pack/Ice Massage,Electric Stimulation,Hot Packs, Traction- Mechanical Next Visit Focus/Plan Next Note Type Treatment Note Next Visit Plan Trial bandwalks and ABD ex, assess pts gait and gait with SPC. Progress ex to standing and dynamic balance ex.
--- NOTE | 2022-07-12 22:01 | PT.OTN ---
Current Diagnoses Parkinson's disease (07/12/22) Spondylosis without myelopathy or radiculopathy, lumbar region (07/12/22) Spinal stenosis, lumbar region without neurogenic claudication (07/12/22) Trochanteric bursitis, right hip (07/12/22) Physical Therapy Treatment Note PT-OP-A Visit Information Start: 05/16/22 19:55 Freq: Status: Active Protocol: Document 07/12/22 14:30 AMB (Rec: 07/17/22 22:01 AMB [id number]) Out-Patient Physical Therapy Visit Information Visit Information Visit Type Treatment Note Visit Start Time 14:30 Visit Stop Time 15:30 Total Visit Minutes 60 Visit Number 16 PT-OP-B Current Condition Start: 05/16/22 19:55 Freq: Status: Active Protocol: Document 05/17/22 13:01 AMB (Rec: 05/17/22 13:20 AMB [id number]) Current Condition History of Current Condition Onset Date actue exacerbation of chronic pain Current Complaints back pain History of Current Condition Maggi attends for back pain, parkinsons. Standing increases the pain. Rolling over in bed is painful and wakes her up. Does do BIG exercises and overall feels better while moving, standing stationary is the most painful . She cooks a lot and this is painful for her. When waking up legs feel weak. Has had PD for years, does notice freezing vinny in doorways, difficulty walking backwards. Treatment Goals Patient/Caregiver Goals STand, roll over less back pain, walking less hip pain bilateral Personal Factors Other Personal Factors That May Effect Parkinsons Therapy/Recovery PT-OP-C Subjective Start: 05/16/22 19:55 Freq: Status: Active Protocol: Document 07/12/22 14:30 AMB (Rec: 07/17/22 22:01 AMB [id number]-) OP-PT Subjective Patient Comments Patient Comments Pt and attend with personal TENS unit hoping for instruction in how to use it. Pt reports overall sx are improving, but stiffness and pain persist when working in the kitchen and first getting up in the morning. PT-OP-G Mobility & Gait Start: 05/16/22 19:55 Freq: Status: Active Protocol: Document 05/17/22 13:45 AMB (Rec: 05/21/22 21:33 AMB -[id number]-) OP Mobility Evaluation Bed Mobility Rolling pain with rolling over in bed OP Gait Assessment Comments Gait Comments Freezing at doorway, difficulty with turns, reduced trunk rotation PT-OP-J Posture/Palpation/Skin Start: 05/16/22 19:55 Freq: Status: Active Protocol: Document 05/17/22 13:45 AMB (Rec: 05/21/22 21:33 AMB [id number]-) Posture Evaluation Comments Posture Comments Flat lumbar spine Palpation Assessment Location One Palpation Findings Soft Tissue Tightness, Tenderness Palpation Details lumbar paraspinals hypertonic PT-OP-K Range of Motion Start: 05/16/22 19:55 Freq: Status: Active Protocol: Document 06/20/22 13:52 LRN (Rec: 06/20/22 17:09 LRN [id number]) Hip Goniometric Range of Motion Hip Right Passive Straight Leg Raise 70 Abduction 35 Internal Rotation 35 External Rotation 55 Left Passive Testing Position Supine Straight Leg Raise 70 Abduction 30 Internal Rotation 20 External Rotation 65 PT-OP-Q Treatments Start: 05/16/22 19:55 Freq: Status: Active Protocol: Document 07/12/22 14:30 AMB (Rec: 07/17/22 22:01 AMB [id number]-) Therapeutic Exercises Standing Exercises Step outs Side bilateral Resistance LVL 1 Reps/Minutes 2x10 Comments Cues for keeping feet straight ahead and posture Sink Stretch Standing Exercise Name L/sink stretch Equipment Used counter Comments Cues for sinking in to stretch . Other Exercises thread the needle Side bilateral Reps/Minutes x10, cued pause 3 sec stretch Comments vc for slower pacing, drop shoulder Self-Care/Home Management Treatment Education Other Education Continued pt and spouse education of TENS unit that the purchased, how to set up, attach electrodes, different settings on their unit. PT-OP-R Modalities Start: 05/16/22 19:55 Freq: Status: Active Protocol: Document 07/12/22 14:30 AMB (Rec: 07/17/22 22:01 AMB [id number]-) Hot Pack/Cold Pack Treatment Hot Pack Location mid back Patient Position Supine Treatment Duration (minutes) 10 PT-OP-T Assessment and Plan Start: 05/16/22 19:55 Freq: Status: Active Protocol: Document 07/12/22 14:30 AMB (Rec: 07/17/22 22:01 AMB [id number]) Physical Therapy Assessment Goals Two Impairment Transfers Short Term Goal (STG) Maggi will roll over in bed without an increase in back pain. 06/08/22: reports getting better especially after stretches before gets up but still some pain. STG Duration 4 weeks progressing 06/08 Nursing Home Goal (LTG) Maggi will move from supine to standing in the morning after doing her exercises without an increase in back pain. 06/20/22: Pain persists. 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 06/08/22 unsure if understands but states able to stand up to 3 hours before has to sit down due to LBP but at times if hurries causes increase pain, no time identified. 06/15/22: able to stand 30-60 min cooking in kitchen before LB starts to hurt and needs sit down or goes lay down and do stretches to make go away. 06/20/22: More pain with standing 1 hr to cook meal. STG Duration 4 weeks progressing 06/15/22 Nursing Home Goal (LTG) Maggi will walk for 30 minutes without an increase in bilateral hip pain. 06/08/22: GOAL MET: post injection hasn't had hip pain March or Apr. 06/15/22: able to stand 30-60 min cooking in kitchen before LB starts to hurt and needs sit down or goes lay down and do stretches to make go away. 06/20/22: Sometimes pain is worse with walking. LTG Duration 8 weeks GOAL MET 06/08/22 Assessment Summary Assessment Pt and instructed in their personal TENS unit. All questions answered. Continue to encouraged Maggi in the amplituded of her movement to improve gait/ trunk rotation, etc. Physical Therapy Plan Frequency and Duration Frequency of Treatment 2x/Week Duration of treatment (weeks) 8 Plan of Care Start Date 06/20/22 Plan of Care End Date 08/19/22 Therapeutic Interventions Therapeutic Interventions Balance Training,Gait Training ,Home Exercise Program,Joint Mobilizations,Manual Therapy, Neuromuscular Re-education, Self-Care/Home Management, Therapeutic Activities, Therapeutic Exercises Modalities Cold Pack/Ice Massage,Electric Stimulation,Hot Packs, Traction- Mechanical Next Visit Focus/Plan Next Note Type Treatment Note Next Visit Plan Trial bandwalks and ABD ex, assess pts gait and gait with SPC. Progress ex to standing and dynamic balance ex.
--- NOTE | 2022-07-18 16:01 | PT.OTN ---
Current Diagnoses Parkinson's disease (07/18/22) Spondylosis without myelopathy or radiculopathy, lumbar region (07/18/22) Spinal stenosis, lumbar region without neurogenic claudication (07/18/22) Trochanteric bursitis, right hip (07/18/22) Physical Therapy Treatment Note PT-OP-A Visit Information Start: 05/16/22 19:55 Freq: Status: Active Protocol: Document 07/18/22 13:51 AMB (Rec: 07/18/22 14:35 AMB [id number]) Out-Patient Physical Therapy Visit Information Visit Information Visit Type Treatment Note Visit Start Time 13:45 Visit Stop Time 14:45 Total Visit Minutes 60 Visit Number 17 PT-OP-B Current Condition Start: 05/16/22 19:55 Freq: Status: Active Protocol: Document 05/17/22 13:01 AMB (Rec: 05/17/22 13:20 AMB [id number]) Current Condition History of Current Condition Onset Date actue exacerbation of chronic pain Current Complaints back pain History of Current Condition Maggi attends for back pain, parkinsons. Standing increases the pain. Rolling over in bed is painful and wakes her up. Does do BIG exercises and overall feels better while moving, standing stationary is the most painful . She cooks a lot and this is painful for her. When waking up legs feel weak. Has had PD for years, does notice freezing vinny in doorways, difficulty walking backwards. Treatment Goals Patient/Caregiver Goals STand, roll over less back pain, walking less hip pain bilateral Personal Factors Other Personal Factors That May Effect Parkinsons Therapy/Recovery PT-OP-C Subjective Start: 05/16/22 19:55 Freq: Status: Active Protocol: Document 07/18/22 13:51 AMB (Rec: 07/18/22 14:35 AMB [id number]) OP-PT Subjective Patient Comments Patient Comments Pt reports improved back pain, but still does get pain with extended standing in the kitchen, is taking rest breaks as needed. PT-OP-G Mobility & Gait Start: 05/16/22 19:55 Freq: Status: Active Protocol: Document 05/17/22 13:45 AMB (Rec: 05/21/22 21:33 AMB [id number]) OP Mobility Evaluation Bed Mobility Rolling pain with rolling over in bed OP Gait Assessment Comments Gait Comments Freezing at doorway, difficulty with turns, reduced trunk rotation PT-OP-J Posture/Palpation/Skin Start: 05/16/22 19:55 Freq: Status: Active Protocol: Document 05/17/22 13:45 AMB (Rec: 05/21/22 21:33 AMB [id number]) Posture Evaluation Comments Posture Comments Flat lumbar spine Palpation Assessment Location One Palpation Findings Soft Tissue Tightness, Tenderness Palpation Details lumbar paraspinals hypertonic PT-OP-K Range of Motion Start: 05/16/22 19:55 Freq: Status: Active Protocol: Document 06/20/22 13:52 LRN (Rec: 06/20/22 17:09 LRN [id number]) Hip Goniometric Range of Motion Hip Right Passive Straight Leg Raise 70 Abduction 35 Internal Rotation 35 External Rotation 55 Left Passive Testing Position Supine Straight Leg Raise 70 Abduction 30 Internal Rotation 20 External Rotation 65 PT-OP-Q Treatments Start: 05/16/22 19:55 Freq: Status: Active Protocol: Document 07/18/22 13:51 AMB (Rec: 07/18/22 14:35 AMB [id number]) Therapeutic Exercises Supine Exercises LTR Supine Exercise Name HEP review Side bilateral Reps/Minutes x10 Comments cued keep pelvis still Standing Exercises squats Standing Exercise Name lifting 5# crate from waist height Reps/Minutes 10 Step outs Side bilateral Resistance LVL 2 Reps/Minutes 2x10 Comments Cues for keeping feet straight ahead and posture Hip AROM ABD Side bilateral Resistance AROM Equipment Used Handrail Reps/Minutes 2x15 Comments cues for eyes up and keeping foot straight Other Exercises pipo pose Equipment Used Mat table Reps/Minutes 30x2 Comments Minimal mvmt, good form and back stretch thread the needle Side bilateral Reps/Minutes x10, cued pause 3 sec stretch Comments vc for slower pacing, drop shoulder Therapeutic Activity Therapeutic Activity bed mobility Reps/Minutes 10 min Comments punch, bridge, use momentum, bend knees- improvement since eval, pt continues to have difficulty with scooting PT-OP-R Modalities Start: 05/16/22 19:55 Freq: Status: Active Protocol: Document 07/12/22 14:30 AMB (Rec: 07/17/22 22:01 AMB [id number]) Hot Pack/Cold Pack Treatment Hot Pack Location mid back Patient Position Supine Treatment Duration (minutes) 10 PT-OP-T Assessment and Plan Start: 05/16/22 19:55 Freq: Status: Active Protocol: Document 07/18/22 13:51 AMB (Rec: 07/18/22 14:35 AMB [id number]) Physical Therapy Assessment Goals Two Impairment Transfers Short Term Goal (STG) Maggi will roll over in bed without an increase in back pain. 06/08/22: reports getting better especially after stretches before gets up but still some pain. STG Duration 4 weeks progressing 06/08 Gambling Supervisor Goal (LTG) Maggi will move from supine to standing in the morning after doing her exercises without an increase in back pain. 06/20/22: Pain persists. 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 06/08/22 unsure if understands but states able to stand up to 3 hours before has to sit down due to LBP but at times if hurries causes increase pain, no time identified. 06/15/22: able to stand 30-60 min cooking in kitchen before LB starts to hurt and needs sit down or goes lay down and do stretches to make go away. 06/20/22: More pain with standing 1 hr to cook meal. STG Duration 4 weeks progressing 06/15/22 Gambling Supervisor Goal (LTG) Maggi will walk for 30 minutes without an increase in bilateral hip pain. 06/08/22: GOAL MET: post injection hasn't had hip pain March or Apr. 06/15/22: able to stand 30-60 min cooking in kitchen before LB starts to hurt and needs sit down or goes lay down and do stretches to make go away. 06/20/22: Sometimes pain is worse with walking. LTG Duration 8 weeks GOAL MET 06/08/22 Assessment Summary Assessment Pt reports she is doing better with her back pain, but is frustrated with her gait and bed mobility at times. Continued to encourage pt with amplitude of movement during bed mobility and gait. Started standing hip abd strengthening, pt needing cues for form, bu then can give as HEP once posture during exercise is improved. Physical Therapy Plan Frequency and Duration Frequency of Treatment 2x/Week Duration of treatment (weeks) 8 Plan of Care Start Date 06/20/22 Plan of Care End Date 08/19/22 Therapeutic Interventions Therapeutic Interventions Balance Training,Gait Training ,Home Exercise Program,Joint Mobilizations,Manual Therapy, Neuromuscular Re-education, Self-Care/Home Management, Therapeutic Activities, Therapeutic Exercises Modalities Cold Pack/Ice Massage,Electric Stimulation,Hot Packs, Traction- Mechanical Next Visit Focus/Plan Next Visit Plan Continue to progress standing exercises, gait, continue with bed mobility training.
--- NOTE | 2022-07-20 15:32 | PT.OTN ---
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/22) Spinal stenosis, lumbar region without neurogenic claudication (07/20/22) Trochanteric bursitis, right hip (07/20/22) Physical Therapy Treatment Note PT-OP-A Visit Information Start: 05/16/22 19:55 Freq: Status: Active Protocol: Document 07/20/22 14:37 AMB (Rec: 07/20/22 15:31 AMB [id number]) Out-Patient Physical Therapy Visit Information Visit Information Visit Type Treatment Note Visit Start Time 14:30 Visit Stop Time 15:30 Total Visit Minutes 60 Visit Number 18 PT-OP-B Current Condition Start: 05/16/22 19:55 Freq: Status: Active Protocol: Document 05/17/22 13:01 AMB (Rec: 05/17/22 13:20 AMB [id number]) Current Condition History of Current Condition Onset Date actue exacerbation of chronic pain Current Complaints back pain History of Current Condition Maggi attends for back pain, parkinsons. Standing increases the pain. Rolling over in bed is painful and wakes her up. Does do BIG exercises and overall feels better while moving, standing stationary is the most painful . She cooks a lot and this is painful for her. When waking up legs feel weak. Has had PD for years, does notice freezing vinny in doorways, difficulty walking backwards. Treatment Goals Patient/Caregiver Goals STand, roll over less back pain, walking less hip pain bilateral Personal Factors Other Personal Factors That May Effect Parkinsons Therapy/Recovery PT-OP-C Subjective Start: 05/16/22 19:55 Freq: Status: Active Protocol: Document 07/20/22 14:37 AMB (Rec: 07/20/22 15:31 AMB [id number]) OP-PT Subjective Patient Comments Patient Comments Pt is going to be visiting with 8 month old grandson over the weekend. Did sleep better over the last few days. PT-OP-G Mobility & Gait Start: 05/16/22 19:55 Freq: Status: Active Protocol: Document 05/17/22 13:45 AMB (Rec: 05/21/22 21:33 AMB [id number]) OP Mobility Evaluation Bed Mobility Rolling pain with rolling over in bed OP Gait Assessment Comments Gait Comments Freezing at doorway, difficulty with turns, reduced trunk rotation PT-OP-J Posture/Palpation/Skin Start: 05/16/22 19:55 Freq: Status: Active Protocol: Document 05/17/22 13:45 AMB (Rec: 05/21/22 21:33 AMB [id number]) Posture Evaluation Comments Posture Comments Flat lumbar spine Palpation Assessment Location One Palpation Findings Soft Tissue Tightness, Tenderness Palpation Details lumbar paraspinals hypertonic PT-OP-K Range of Motion Start: 05/16/22 19:55 Freq: Status: Active Protocol: Document 06/20/22 13:52 LRN (Rec: 06/20/22 17:09 LRN [id number]) Hip Goniometric Range of Motion Hip Right Passive Straight Leg Raise 70 Abduction 35 Internal Rotation 35 External Rotation 55 Left Passive Testing Position Supine Straight Leg Raise 70 Abduction 30 Internal Rotation 20 External Rotation 65 PT-OP-Q Treatments Start: 05/16/22 19:55 Freq: Status: Active Protocol: Document 07/20/22 14:37 AMB (Rec: 07/20/22 15:31 AMB [id number]) Therapeutic Exercises Supine Exercises Lateral Hip stretch Supine Exercise Name Lateral Hip stretch Side left Reps/Minutes 60 ER stretch Supine Exercise Name Figure 4 stretch supine w/10x active stretch Side right Reps/Minutes 2x30 Comments More comfortable in supine than sitting. LTR Supine Exercise Name HEP review Side bilateral Reps/Minutes x10 Comments cued keep pelvis still Standing Exercises forward/backward/sidestepping Standing Exercise Name focus on amplitude squats Standing Exercise Name lifting 10# crate from floor Reps/Minutes 10 Sink Stretch Standing Exercise Name L/sink stretch Equipment Used counter Comments Cues for sinking in to stretch . Therapeutic Activity Therapeutic Activity bed mobility Reps/Minutes 10 min Comments punch, bridge, use momentum, bend knees- improvement since eval, pt continues to have difficulty with scooting--- better roll to the R than the L today Manual Therapy Treatment Soft Tissue Mobilization LB Body Location L QL Mobilization Type Cross-Friction,Strumming Intensity/Depth Moderate Body Position Sidelying Comments good feedback decrease LB muscle tightness PT-OP-R Modalities Start: 05/16/22 19:55 Freq: Status: Active Protocol: Document 07/20/22 14:37 AMB (Rec: 07/20/22 15:31 AMB [id number]) Hot Pack/Cold Pack Treatment Hot Pack Location mid back Patient Position Supine Treatment Duration (minutes) 10 PT-OP-T Assessment and Plan Start: 05/16/22 19:55 Freq: Status: Active Protocol: Document 07/20/22 14:37 AMB (Rec: 07/20/22 15:31 AMB [id number]) Physical Therapy Assessment Goals Two Impairment Transfers Short Term Goal (STG) Maggi will roll over in bed without an increase in back pain. 06/08/22: reports getting better especially after stretches before gets up but still some pain. STG Duration 4 weeks progressing 06/08 Senior Living Goal (LTG) Maggi will move from supine to standing in the morning after doing her exercises without an increase in back pain. 06/20/22: Pain persists. 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 06/08/22 unsure if understands but states able to stand up to 3 hours before has to sit down due to LBP but at times if hurries causes increase pain, no time identified. 06/15/22: able to stand 30-60 min cooking in kitchen before LB starts to hurt and needs sit down or goes lay down and do stretches to make go away. 06/20/22: More pain with standing 1 hr to cook meal. STG Duration 4 weeks progressing 06/15/22 Class 1 Owner Operator Goal (LTG) Maggi will walk for 30 minutes without an increase in bilateral hip pain. 06/08/22: GOAL MET: post injection hasn't had hip pain March or Apr. 06/15/22: able to stand 30-60 min cooking in kitchen before LB starts to hurt and needs sit down or goes lay down and do stretches to make go away. 06/20/22: Sometimes pain is worse with walking. LTG Duration 8 weeks GOAL MET 06/08/22 Assessment Summary Assessment Maggi is doing better with her back pain, continues to take concentration to work on good amplituded with gait. Did well with lifting 10# from floor in prep for grandson visiting. Physical Therapy Plan Frequency and Duration Frequency of Treatment 2x/Week Duration of treatment (weeks) 8 Plan of Care Start Date 06/20/22 Plan of Care End Date 08/19/22 Therapeutic Interventions Therapeutic Interventions Balance Training,Gait Training ,Home Exercise Program,Joint Mobilizations,Manual Therapy, Neuromuscular Re-education, Self-Care/Home Management, Therapeutic Activities, Therapeutic Exercises Modalities Cold Pack/Ice Massage,Electric Stimulation,Hot Packs, Traction- Mechanical Next Visit Focus/Plan Next Visit Plan Continue to progress standing exercises, gait, continue with bed mobility training.
--- NOTE | 2022-07-27 11:52 | PT.OTN ---
Current Diagnoses Parkinson's disease (07/27/22) Spondylosis without myelopathy or radiculopathy, lumbar region (07/27/22) Spinal stenosis, lumbar region without neurogenic claudication (07/27/22) Trochanteric bursitis, right hip (07/27/22) Physical Therapy Treatment Note PT-OP-A Visit Information Start: 05/16/22 19:55 Freq: Status: Active Protocol: Document 07/27/22 11:18 AMB (Rec: 07/27/22 12:01 AMB [id number]) Out-Patient Physical Therapy Visit Information Visit Information Visit Type Treatment Note Visit Start Time 14:30 Visit Stop Time 15:30 Total Visit Minutes 60 Visit Number 19 PT-OP-B Current Condition Start: 05/16/22 19:55 Freq: Status: Active Protocol: Document 05/17/22 13:01 AMB (Rec: 05/17/22 13:20 AMB [id number]) Current Condition History of Current Condition Onset Date actue exacerbation of chronic pain Current Complaints back pain History of Current Condition Maggi attends for back pain, parkinsons. Standing increases the pain. Rolling over in bed is painful and wakes her up. Does do BIG exercises and overall feels better while moving, standing stationary is the most painful . She cooks a lot and this is painful for her. When waking up legs feel weak. Has had PD for years, does notice freezing vinny in doorways, difficulty walking backwards. Treatment Goals Patient/Caregiver Goals STand, roll over less back pain, walking less hip pain bilateral Personal Factors Other Personal Factors That May Effect Parkinsons Therapy/Recovery PT-OP-C Subjective Start: 05/16/22 19:55 Freq: Status: Active Protocol: Document 07/27/22 11:18 AMB (Rec: 07/27/22 12:01 AMB [id number]) OP-PT Subjective Patient Comments Patient Comments Back pain is going better, sleeping better PT-OP-G Mobility & Gait Start: 05/16/22 19:55 Freq: Status: Active Protocol: Document 05/17/22 13:45 AMB (Rec: 05/21/22 21:33 AMB [id number]) OP Mobility Evaluation Bed Mobility Rolling pain with rolling over in bed OP Gait Assessment Comments Gait Comments Freezing at doorway, difficulty with turns, reduced trunk rotation PT-OP-J Posture/Palpation/Skin Start: 05/16/22 19:55 Freq: Status: Active Protocol: Document 05/17/22 13:45 AMB (Rec: 05/21/22 21:33 AMB [id number]) Posture Evaluation Comments Posture Comments Flat lumbar spine Palpation Assessment Location One Palpation Findings Soft Tissue Tightness, Tenderness Palpation Details lumbar paraspinals hypertonic PT-OP-K Range of Motion Start: 05/16/22 19:55 Freq: Status: Active Protocol: Document 06/20/22 13:52 LRN (Rec: 06/20/22 17:09 LRN [id number]) Hip Goniometric Range of Motion Hip Right Passive Straight Leg Raise 70 Abduction 35 Internal Rotation 35 External Rotation 55 Left Passive Testing Position Supine Straight Leg Raise 70 Abduction 30 Internal Rotation 20 External Rotation 65 PT-OP-Q Treatments Start: 05/16/22 19:55 Freq: Status: Active Protocol: Document 07/27/22 11:18 AMB (Rec: 07/27/22 12:01 AMB [id number]) Therapeutic Exercises Supine Exercises bent knee fall out Supine Exercise Name HEP reviewed Side bilateral Resistance YTB ( light blue TB #1 home) Reps/Minutes 10 Comments cued stable pelvis TA Supine Exercise Name Supine holding with breathing and with cough Reps/Minutes 10' LTR Supine Exercise Name HEP review Side bilateral Reps/Minutes x10 Comments cued keep pelvis still Standing Exercises forward/backward/sidestepping Standing Exercise Name focus on amplitude squats Standing Exercise Name lifting 10# crate from floor Reps/Minutes 10 Step outs Side bilateral Resistance LVL 2 Reps/Minutes 2x10 Comments Cues for keeping feet straight ahead and posture Other Exercises quadruped UE ext Other Exercise Name Added LE then UE ext Reps/Minutes 2x10 Comments improved core stability Therapeutic Activity Therapeutic Activity bed mobility Reps/Minutes 10 min Comments punch, bridge, use momentum, bend knees- improvement since eval, pt continues to have difficulty with scooting--- better roll to the R than the L today Gait Training Gait Activity no AD Description Mirror for feedback Level of Assistance CGA Distance/Duration 200'X1 Comments no scissoring noted today, cues for amplitude PT-OP-R Modalities Start: 05/16/22 19:55 Freq: Status: Active Protocol: Document 07/27/22 11:37 AMB (Rec: 07/28/22 11:37 AMB [id number]) Hot Pack/Cold Pack Treatment Hot Pack Location mid back Patient Position Supine Treatment Duration (minutes) 10 PT-OP-T Assessment and Plan Start: 05/16/22 19:55 Freq: Status: Active Protocol: Document 07/27/22 11:18 AMB (Rec: 07/27/22 12:01 [facility] [id number]) Physical Therapy Assessment Goals Two Impairment Transfers Short Term Goal (STG) Maggi will roll over in bed without an increase in back pain. 06/08/22: reports getting better especially after stretches before gets up but still some pain. STG Duration 4 weeks progressing 06/08 Information Technology Administrator Goal (LTG) Maggi will move from supine to standing in the morning after doing her exercises without an increase in back pain. 06/20/22: Pain persists. 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 06/08/22 unsure if understands but states able to stand up to 3 hours before has to sit down due to LBP but at times if hurries causes increase pain, no time identified. 06/15/22: able to stand 30-60 min cooking in kitchen before LB starts to hurt and needs sit down or goes lay down and do stretches to make go away. 06/20/22: More pain with standing 1 hr to cook meal. STG Duration 4 weeks progressing 06/15/22 [facility] Goal (LTG) Maggi will walk for 30 minutes without an increase in bilateral hip pain. 06/08/22: GOAL MET: post injection hasn't had hip pain March or Apr. 06/15/22: able to stand 30-60 min cooking in kitchen before LB starts to hurt and needs sit down or goes lay down and do stretches to make go away. 06/20/22: Sometimes pain is worse with walking. LTG Duration 8 weeks GOAL MET 06/08/22 Assessment Summary Assessment Maggi continues to improve with her back pain. she was able to hold her grandson without an increase in back pain. She did have one instance of radicular pain in the last week. So far it has not returned, advised to continue to monitor, but as long as it does not return not necessary to return to ortho yet. Physical Therapy Plan Frequency and Duration Frequency of Treatment 2x/Week Duration of treatment (weeks) 8 Plan of Care Start Date 06/20/22 Plan of Care End Date 08/19/22 Therapeutic Interventions Therapeutic Interventions Balance Training,Gait Training ,Home Exercise Program,Joint Mobilizations,Manual Therapy, Neuromuscular Re-education, Self-Care/Home Management, Therapeutic Activities, Therapeutic Exercises Modalities Cold Pack/Ice Massage,Electric Stimulation,Hot Packs, Traction- Mechanical Next Visit Focus/Plan Next Visit Plan Continue to progress standing exercises, gait, continue with bed mobility training.
--- NOTE | 2022-08-01 15:40 | PT.OTN ---
Current Diagnoses Parkinson's disease (08/01/22) Spondylosis without myelopathy or radiculopathy, lumbar region (08/01/22) Spinal stenosis, lumbar region without neurogenic claudication (08/01/22) Trochanteric bursitis, right hip (08/01/22) Physical Therapy Treatment Note PT-OP-A Visit Information Start: 05/16/22 19:55 Freq: Status: Active Protocol: Document 08/01/22 11:27 AMB (Rec: 08/01/22 12:02 AMB [id number]) Out-Patient Physical Therapy Visit Information Visit Information Visit Type Treatment Note Visit Number 20 PT-OP-B Current Condition Start: 05/16/22 19:55 Freq: Status: Active Protocol: Document 05/17/22 13:01 AMB (Rec: 05/17/22 13:20 AMB [id number]) Current Condition History of Current Condition Onset Date actue exacerbation of chronic pain Current Complaints back pain History of Current Condition Maggi attends for back pain, parkinsons. Standing increases the pain. Rolling over in bed is painful and wakes her up. Does do BIG exercises and overall feels better while moving, standing stationary is the most painful . She cooks a lot and this is painful for her. When waking up legs feel weak. Has had PD for years, does notice freezing vinny in doorways, difficulty walking backwards. Treatment Goals Patient/Caregiver Goals STand, roll over less back pain, walking less hip pain bilateral Personal Factors Other Personal Factors That May Effect Parkinsons Therapy/Recovery PT-OP-C Subjective Start: 05/16/22 19:55 Freq: Status: Active Protocol: Document 08/01/22 11:15 AMB (Rec: 08/01/22 15:39 AMB [id number]) OP-PT Subjective Patient Comments Patient Comments Increased back pain today. Not sleeping well. PT-OP-G Mobility & Gait Start: 05/16/22 19:55 Freq: Status: Active Protocol: Document 05/17/22 13:45 AMB (Rec: 05/21/22 21:33 AMB [id number]) OP Mobility Evaluation Bed Mobility Rolling pain with rolling over in bed OP Gait Assessment Comments Gait Comments Freezing at doorway, difficulty with turns, reduced trunk rotation PT-OP-J Posture/Palpation/Skin Start: 05/16/22 19:55 Freq: Status: Active Protocol: Document 05/17/22 13:45 AMB (Rec: 05/21/22 21:33 AMB [id number]) Posture Evaluation Comments Posture Comments Flat lumbar spine Palpation Assessment Location One Palpation Findings Soft Tissue Tightness, Tenderness Palpation Details lumbar paraspinals hypertonic PT-OP-K Range of Motion Start: 05/16/22 19:55 Freq: Status: Active Protocol: Document 06/20/22 13:52 LRN (Rec: 06/20/22 17:09 LRN [id number]) Hip Goniometric Range of Motion Hip Right Passive Straight Leg Raise 70 Abduction 35 Internal Rotation 35 External Rotation 55 Left Passive Testing Position Supine Straight Leg Raise 70 Abduction 30 Internal Rotation 20 External Rotation 65 PT-OP-Q Treatments Start: 05/16/22 19:55 Freq: Status: Active Protocol: Document 08/01/22 11:15 AMB (Rec: 08/01/22 15:39 AMB [id number]) Therapeutic Exercises Supine Exercises ER stretch Supine Exercise Name Figure 4 stretch supine w/10x active stretch Side right Reps/Minutes 2x30 Comments More comfortable in supine than sitting. LTR Supine Exercise Name HEP review Side bilateral Reps/Minutes x10 Comments cued keep pelvis still single knee to chest Side bilateral Reps/Minutes 30x2 Comments good form and stretch response , reports helped with her pain symptoms. piriformis stretch Supine Exercise Name Piriformis stretch Side left Reps/Minutes 60 x 1 Sidelying Exercises clamshell Side bilateral Reps/Minutes 2x10 Comments cues for amplitude open book Side bilateral Reps/Minutes 1x10 Comments vc for scap setting prior, slower pacing Standing Exercises squats Standing Exercise Name lifting 10# crate from floor Reps/Minutes 10 Sink Stretch Standing Exercise Name L/sink stretch Equipment Used counter Comments Cues for sinking in to stretch . Manual Therapy Treatment Soft Tissue Mobilization LB Body Location L QL Mobilization Type Cross-Friction,Strumming Intensity/Depth Moderate Body Position Sidelying Comments good feedback decrease LB muscle tightness PT-OP-R Modalities Start: 05/16/22 19:55 Freq: Status: Active Protocol: Document 08/01/22 11:15 AMB (Rec: 08/01/22 15:39 AMB [id number]) Hot Pack/Cold Pack Treatment Hot Pack Location mid back Patient Position Supine Treatment Duration (minutes) 10 PT-OP-T Assessment and Plan Start: 05/16/22 19:55 Freq: Status: Active Protocol: Document 08/01/22 11:15 AMB (Rec: 08/01/22 15:39 AMB [id number]) Physical Therapy Assessment Goals Two Impairment Transfers Short Term Goal (STG) Maggi will roll over in bed without an increase in back pain. 06/08/22: reports getting better especially after stretches before gets up but still some pain. STG Duration 4 weeks progressing 06/08 Electric Fork Operator Goal (LTG) Maggi will move from supine to standing in the morning after doing her exercises without an increase in back pain. 06/20/22: Pain persists. 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 06/08/22 unsure if understands but states able to stand up to 3 hours before has to sit down due to LBP but at times if hurries causes increase pain, no time identified. 06/15/22: able to stand 30-60 min cooking in kitchen before LB starts to hurt and needs sit down or goes lay down and do stretches to make go away. 06/20/22: More pain with standing 1 hr to cook meal. STG Duration 4 weeks progressing 06/15/22 Electric Fork Operator Goal (LTG) Maggi will walk for 30 minutes without an increase in bilateral hip pain. 06/08/22: GOAL MET: post injection hasn't had hip pain March or Apr. 06/15/22: able to stand 30-60 min cooking in kitchen before LB starts to hurt and needs sit down or goes lay down and do stretches to make go away. 06/20/22: Sometimes pain is worse with walking. LTG Duration 8 weeks GOAL MET 06/08/22 Assessment Summary Assessment Maggi had increased back pain today because she just woke up and didn't have time to do her exercises. Needed continued cues for appropriate amplitude with exercises. Physical Therapy Plan Frequency and Duration Frequency of Treatment 2x/Week Duration of treatment (weeks) 8 Plan of Care Start Date 06/20/22 Plan of Care End Date 08/19/22 Therapeutic Interventions Therapeutic Interventions Balance Training,Gait Training ,Home Exercise Program,Joint Mobilizations,Manual Therapy, Neuromuscular Re-education, Self-Care/Home Management, Therapeutic Activities, Therapeutic Exercises Modalities Cold Pack/Ice Massage,Electric Stimulation,Hot Packs, Traction- Mechanical Next Visit Focus/Plan Next Visit Plan Continue to progress standing exercises, gait, continue with bed mobility training.
--- NOTE | 2022-08-05 20:59 | PT.OPPOC ---
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) Spinal stenosis, lumbar region without neurogenic claudication (08/05/22) Trochanteric bursitis, right hip (08/05/22) Visit Care Team Role Provider Type Rocio Camarillo PA-C Primary Care Provider Non-Staff Specialty: [facility] Address: [address] [place] [address], [id number] Email: [email or web address] Attending Provider Physician Referring Provider Specialty: Orthopedics Orthopedic Surgery [facility] Address: [address] [place] [address], [address] Email: [email or web address] Plan Of Care PT-OP-T Assessment and Plan Start: 05/16/22 19:55 Freq: Status: Active Protocol: Document 08/05/22 10:33 AMB (Rec: 08/05/22 10:45 AMB [id number]) Physical Therapy Assessment Goals Two Impairment Transfers Short Term Goal (STG) Maggi will roll over in bed without an increase in back pain. 06/08/22: reports getting better especially after stretches before gets up but still some pain. STG Duration 4 weeks progressing 06/08 Mds Nurse Goal (LTG) Maggi will move from supine to standing in the morning after doing her exercises without an increase in back pain. 06/20/22: Pain persists. LTG Duration 8 weeks One Impairment Back pain Short Term Goal (STG) Maggi will stand to starch cooker for 30 minutes without an increase in her baseline back pain. 06/08/22 unsure if understands but states able to stand up to 3 hours before has to sit down due to LBP but at times if hurries causes increase pain, no time identified. 06/15/22: able to stand 30-60 min cooking in kitchen before LB starts to hurt and needs sit down or goes lay down and do stretches to make go away. 06/20/22: More pain with standing 1 hr to cook meal. STG Duration 4 weeks progressing 06/15/22 Mds Nurse Goal (LTG) Maggi will walk for 30 minutes without an increase in bilateral hip pain. 06/08/22: GOAL MET: post injection hasn't had hip pain March or Apr. 06/15/22: able to stand 30-60 min cooking in kitchen before LB starts to hurt and needs sit down or goes lay down and do stretches to make go away. 06/20/22: Sometimes pain is worse with walking. LTG Duration 8 weeks GOAL MET 06/08/22 Assessment Summary Assessment Pt noticing some tingling in the right leg for the last 3 weeks. Hard to find a pattern , does report sitting seems to make it worse. Upon physical exam pt did have increased sx with hip flexion, IR, adduction in combination. Otherwise difficult to increase sx. Encouraged in continued sciatic n glide, piriformis stretch, core strengthening, and hip abductor strengthening. Overall pt feels that PT has been helpful and is progressing with her goals, but this new onset tingling is concerning. Her Parkinson's continues to increase her stiffness and impact her gait. Physical Therapy Plan Frequency and Duration Frequency of Treatment 2x/Week Duration of treatment (weeks) 8 Plan of Care Start Date 08/05/22 Plan of Care End Date 09/30/22 Therapeutic Interventions Therapeutic Interventions Balance Training,Gait Training ,Home Exercise Program,Joint Mobilizations,Manual Therapy, Neuromuscular Re-education, Self-Care/Home Management, Therapeutic Activities, Therapeutic Exercises Modalities Cold Pack/Ice Massage,Electric Stimulation,Hot Packs, Traction- Mechanical Next Visit Focus/Plan Next Note Type Treatment Note Next Visit Plan Continue to progress standing exercises, gait, continue with bed mobility training. Follow up on new onset tingling through posterior R LE. Plan of Care Dates Plan of Care Start Date 08/05/22 Plan of Care End Date 09/30/22 Electronically Signed by: Diana Cruz, PT 08/06/222058 If you are in agreement with this Plan of Care, please return a signed and dated copy. I have reviewed this Plan of Care and certify that the skilled therapy services above are required to meet the patient?s needs. Physician Signature Date Printed Name and Credentials Clinical Instructor Signature Printed Name and Credentials
--- NOTE | 2022-08-05 20:59 | PT.OTN ---
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) Spinal stenosis, lumbar region without neurogenic claudication (08/05/22) Trochanteric bursitis, right hip (08/05/22) Physical Therapy Treatment Note PT-OP-A Visit Information Start: 05/16/22 19:55 Freq: Status: Active Protocol: Document 08/05/22 10:33 AMB (Rec: 08/05/22 10:45 AMB [id number]) Out-Patient Physical Therapy Visit Information Visit Information Visit Type Progress Note Visit Start Time 10:30 Visit Stop Time 11:15 Total Visit Minutes 45 Visit Number 21 PT-OP-B Current Condition Start: 05/16/22 19:55 Freq: Status: Active Protocol: Document 05/17/22 13:01 AMB (Rec: 05/17/22 13:20 AMB [id number]) Current Condition History of Current Condition Onset Date actue exacerbation of chronic pain Current Complaints back pain History of Current Condition Maggi attends for back pain, parkinsons. Standing increases the pain. Rolling over in bed is painful and wakes her up. Does do BIG exercises and overall feels better while moving, standing stationary is the most painful . She cooks a lot and this is painful for her. When waking up legs feel weak. Has had PD for years, does notice freezing vinny in doorways, difficulty walking backwards. Treatment Goals Patient/Caregiver Goals STand, roll over less back pain, walking less hip pain bilateral Personal Factors Other Personal Factors That May Effect Parkinsons Therapy/Recovery PT-OP-C Subjective Start: 05/16/22 19:55 Freq: Status: Active Protocol: Document 08/05/22 10:30 AMB (Rec: 08/06/22 20:50 AMB [id number]) OP-PT Subjective Patient Comments Patient Comments Maggi continues to having tingling/numbness in her right leg intermittently, it has been present for about 3 weeks and she is having a hard time figuring out what makes it worse. Thinks making sitting or standing, lying down seems to help. PT-OP-G Mobility & Gait Start: 05/16/22 19:55 Freq: Status: Active Protocol: Document 05/17/22 13:45 AMB (Rec: 05/21/22 21:33 AMB [id number]) OP Mobility Evaluation Bed Mobility Rolling pain with rolling over in bed OP Gait Assessment Comments Gait Comments Freezing at doorway, difficulty with turns, reduced trunk rotation PT-OP-J Posture/Palpation/Skin Start: 05/16/22 19:55 Freq: Status: Active Protocol: Document 05/17/22 13:45 AMB (Rec: 05/21/22 21:33 AMB [id number]) Posture Evaluation Comments Posture Comments Flat lumbar spine Palpation Assessment Location One Palpation Findings Soft Tissue Tightness, Tenderness Palpation Details lumbar paraspinals hypertonic PT-OP-K Range of Motion Start: 05/16/22 19:55 Freq: Status: Active Protocol: Document 06/20/22 13:52 LRN (Rec: 06/20/22 17:09 LRN [id number]) Hip Goniometric Range of Motion Hip Right Passive Straight Leg Raise 70 Abduction 35 Internal Rotation 35 External Rotation 55 Left Passive Testing Position Supine Straight Leg Raise 70 Abduction 30 Internal Rotation 20 External Rotation 65 PT-OP-Q Treatments Start: 05/16/22 19:55 Freq: Status: Active Protocol: Document 08/05/22 10:30 AMB (Rec: 08/06/22 20:50 AMB [id number]) Therapeutic Exercises Supine Exercises Lateral Hip stretch Supine Exercise Name Lateral Hip stretch Side left Reps/Minutes 60 ER stretch Supine Exercise Name Figure 4 stretch supine w/10x active stretch Side right Reps/Minutes 2x30 Comments More comfortable in supine than sitting. Hip PROM Supine Exercise Name Hip PROM Side bilateral Reps/Minutes 6' Comments ROM taken IT band stretch Supine Exercise Name EDGE CUTTER provided manual support, unable get ITb stretch only HS and calf Side bilateral Resistance in PT only Equipment Used manual Reps/Minutes 30x2 Comments to challenging performing self TA Supine Exercise Name Supine holding with breathing and with cough Reps/Minutes 10' LTR Supine Exercise Name HEP review Side bilateral Reps/Minutes x10 Comments cued keep pelvis still single knee to chest Side bilateral Reps/Minutes 30x2 Comments good form and stretch response , reports helped with her pain symptoms. piriformis stretch Supine Exercise Name Piriformis stretch Side left Reps/Minutes 60 x 1 Sidelying Exercises hip abduction Side bilateral Reps/Minutes 2x10 Comments heavy cues to keep pelvis neutral for proper form clamshell Side bilateral Reps/Minutes 2x10 Comments cues for amplitude Manual Therapy Treatment Soft Tissue Mobilization LB Body Location L QL Mobilization Type Cross-Friction,Strumming Intensity/Depth Moderate Body Position Sidelying Comments good feedback decrease LB muscle tightness Manual Traction LS Details long axis pull each LE Comments good feedback response: can pull more, feels good PT-OP-R Modalities Start: 05/16/22 19:55 Freq: Status: Active Protocol: Document 08/05/22 10:30 AMB (Rec: 08/06/22 20:50 AMB [id number]) Electric Stimulation Electric Stimulation Interferential Current (IFC) Body Location B low back Duration (Minutes) 10 Intensity 14 Target/Sweep Sweep Patient Position Supine Combined With Heat/Cold Hot Pack PT-OP-T Assessment and Plan Start: 05/16/22 19:55 Freq: Status: Active Protocol: Document 08/05/22 10:33 AMB (Rec: 08/05/22 10:45 AMB [id number]) Physical Therapy Assessment Goals Two Impairment Transfers Short Term Goal (STG) Maggi will roll over in bed without an increase in back pain. 06/08/22: reports getting better especially after stretches before gets up but still some pain. STG Duration 4 weeks progressing 06/08 Project Portfolio Analyst Goal (LTG) Maggi will move from supine to standing in the morning after doing her exercises without an increase in back pain. 06/20/22: Pain persists. 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 06/08/22 unsure if understands but states able to stand up to 3 hours before has to sit down due to LBP but at times if hurries causes increase pain, no time identified. 06/15/22: able to stand 30-60 min cooking in kitchen before LB starts to hurt and needs sit down or goes lay down and do stretches to make go away. 06/20/22: More pain with standing 1 hr to cook meal. STG Duration 4 weeks progressing 06/15/22 Project Portfolio Analyst Goal (LTG) Maggi will walk for 30 minutes without an increase in bilateral hip pain. 06/08/22: GOAL MET: post injection hasn't had hip pain March or Apr. 06/15/22: able to stand 30-60 min cooking in kitchen before LB starts to hurt and needs sit down or goes lay down and do stretches to make go away. 06/20/22: Sometimes pain is worse with walking. LTG Duration 8 weeks GOAL MET 06/08/22 Assessment Summary Assessment Pt noticing some tingling in the right leg for the last 3 weeks. Hard to find a pattern , does report sitting seems to make it worse. Upon physical exam pt did have increased sx with hip flexion, IR, adduction in combination. Otherwise difficult to increase sx. Encouraged in continued sciatic n glide, piriformis stretch, core strengthening, and hip abductor strengthening. Overall pt feels that PT has been helpful and is progressing with her goals, but this new onset tingling is concerning. Her Parkinson's continues to increase her stiffness and impact her gait. Physical Therapy Plan Frequency and Duration Frequency of Treatment 2x/Week Duration of treatment (weeks) 8 Plan of Care Start Date 08/05/22 Plan of Care End Date 09/30/22 Therapeutic Interventions Therapeutic Interventions Balance Training,Gait Training ,Home Exercise Program,Joint Mobilizations,Manual Therapy, Neuromuscular Re-education, Self-Care/Home Management, Therapeutic Activities, Therapeutic Exercises Modalities Cold Pack/Ice Massage,Electric Stimulation,Hot Packs, Traction- Mechanical Next Visit Focus/Plan Next Note Type Treatment Note Next Visit Plan Continue to progress standing exercises, gait, continue with bed mobility training. Follow up on new onset tingling through posterior R LE.
--- NOTE | 2022-08-08 14:20 | PT.OTN ---
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/22) Spinal stenosis, lumbar region without neurogenic claudication (08/08/22) Trochanteric bursitis, right hip (08/08/22) Physical Therapy Treatment Note PT-OP-A Visit Information Start: 05/16/22 19:55 Freq: Status: Active Protocol: Document 08/08/22 11:17 AMB (Rec: 08/08/22 11:21 AMB [id number]) Out-Patient Physical Therapy Visit Information Visit Information Visit Type Treatment Note Visit Start Time 11:15 Visit Stop Time 12:00 Total Visit Minutes 45 Visit Number 22 PT-OP-B Current Condition Start: 05/16/22 19:55 Freq: Status: Active Protocol: Document 05/17/22 13:01 AMB (Rec: 05/17/22 13:20 AMB [id number]) Current Condition History of Current Condition Onset Date actue exacerbation of chronic pain Current Complaints back pain History of Current Condition Maggi attends for back pain, parkinsons. Standing increases the pain. Rolling over in bed is painful and wakes her up. Does do BIG exercises and overall feels better while moving, standing stationary is the most painful . She cooks a lot and this is painful for her. When waking up legs feel weak. Has had PD for years, does notice freezing vinny in doorways, difficulty walking backwards. Treatment Goals Patient/Caregiver Goals STand, roll over less back pain, walking less hip pain bilateral Personal Factors Other Personal Factors That May Effect Parkinsons Therapy/Recovery PT-OP-C Subjective Start: 05/16/22 19:55 Freq: Status: Active Protocol: Document 08/08/22 11:21 AMB (Rec: 08/08/22 12:04 AMB [id number]) OP-PT Subjective Patient Comments Patient Comments Pt attends with headache, dizziness, nausea. PT-OP-G Mobility & Gait Start: 05/16/22 19:55 Freq: Status: Active Protocol: Document 05/17/22 13:45 AMB (Rec: 05/21/22 21:33 AMB [id number]) OP Mobility Evaluation Bed Mobility Rolling pain with rolling over in bed OP Gait Assessment Comments Gait Comments Freezing at doorway, difficulty with turns, reduced trunk rotation PT-OP-J Posture/Palpation/Skin Start: 05/16/22 19:55 Freq: Status: Active Protocol: Document 05/17/22 13:45 AMB (Rec: 05/21/22 21:33 AMB [id number]) Posture Evaluation Comments Posture Comments Flat lumbar spine Palpation Assessment Location One Palpation Findings Soft Tissue Tightness, Tenderness Palpation Details lumbar paraspinals hypertonic PT-OP-K Range of Motion Start: 05/16/22 19:55 Freq: Status: Active Protocol: Document 06/20/22 13:52 LRN (Rec: 06/20/22 17:09 LRN [id number]) Hip Goniometric Range of Motion Hip Right Passive Straight Leg Raise 70 Abduction 35 Internal Rotation 35 External Rotation 55 Left Passive Testing Position Supine Straight Leg Raise 70 Abduction 30 Internal Rotation 20 External Rotation 65 PT-OP-Q Treatments Start: 05/16/22 19:55 Freq: Status: Active Protocol: Document 08/08/22 14:09 AMB (Rec: 08/08/22 14:18 AMB [id number]) Therapeutic Exercises Supine Exercises ER stretch Supine Exercise Name Figure 4 stretch supine w/10x active stretch Side right Reps/Minutes 2x30 Comments More comfortable in supine than sitting. Hip PROM Supine Exercise Name Hip PROM Side bilateral Reps/Minutes 6' TA Supine Exercise Name Supine holding with breathing and with cough Reps/Minutes 10' LTR Supine Exercise Name HEP review Side bilateral Reps/Minutes x10 Comments cued keep pelvis still Gait Training Gait Activity no AD Description Mirror for feedback Level of Assistance CGA Distance/Duration 600'X1 Comments increased athetoid movement today, but better after gait Manual Therapy Treatment Soft Tissue Mobilization LB Body Location L QL Mobilization Type Cross-Friction,Strumming Intensity/Depth Moderate Body Position Sidelying Comments good feedback decrease LB muscle tightness Manual Traction LS Details long axis pull each LE Comments good feedback response: can pull more, feels good PT-OP-R Modalities Start: 05/16/22 19:55 Freq: Status: Active Protocol: Document 08/08/22 14:09 AMB (Rec: 08/08/22 14:18 AMB [id number]) Electric Stimulation Electric Stimulation Interferential Current (IFC) Body Location B low back Duration (Minutes) 10 Intensity 14 Target/Sweep Sweep Patient Position Sidelying Combined With Heat/Cold Hot Pack Comments with HOB elevated PT-OP-T Assessment and Plan Start: 05/16/22 19:55 Freq: Status: Active Protocol: Document 08/08/22 11:21 AMB (Rec: 08/08/22 12:04 AMB [id number]) Physical Therapy Assessment Goals Two Impairment Transfers Short Term Goal (STG) Maggi will roll over in bed without an increase in back pain. 06/08/22: reports getting better especially after stretches before gets up but still some pain. STG Duration 4 weeks progressing 06/08 Vp Global Goal (LTG) Maggi will move from supine to standing in the morning after doing her exercises without an increase in back pain. 06/20/22: Pain persists. 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 06/08/22 unsure if understands but states able to stand up to 3 hours before has to sit down due to LBP but at times if hurries causes increase pain, no time identified. 06/15/22: able to stand 30-60 min cooking in kitchen before LB starts to hurt and needs sit down or goes lay down and do stretches to make go away. 06/20/22: More pain with standing 1 hr to cook meal. STG Duration 4 weeks progressing 06/15/22 Vp Global Goal (LTG) Maggi will walk for 30 minutes without an increase in bilateral hip pain. 06/08/22: GOAL MET: post injection hasn't had hip pain March or Apr. 06/15/22: able to stand 30-60 min cooking in kitchen before LB starts to hurt and needs sit down or goes lay down and do stretches to make go away. 06/20/22: Sometimes pain is worse with walking. LTG Duration 8 weeks GOAL MET 06/08/22 Assessment Summary Assessment Increased athetoid movement today. Better at the end of the appointment. Pt with dizziness and nausea and headache today, would be interested in vestibular function. Did not tolerate supine well today, so moved into more upright positions and sidelying with HOB elevated and pt tolerated better. Physical Therapy Plan Frequency and Duration Frequency of Treatment 2x/Week Duration of treatment (weeks) 8 Plan of Care Start Date 08/05/22 Plan of Care End Date 09/30/22 Therapeutic Interventions Therapeutic Interventions Balance Training,Gait Training ,Home Exercise Program,Joint Mobilizations,Manual Therapy, Neuromuscular Re-education, Self-Care/Home Management, Therapeutic Activities, Therapeutic Exercises Modalities Cold Pack/Ice Massage,Electric Stimulation,Hot Packs, Traction- Mechanical Next Visit Focus/Plan Next Note Type Treatment Note Next Visit Plan Check Martha tenorio. Continue to progress standing exercises , gait, continue with bed mobility training. Follow up on new onset tingling through posterior R LE.
--- NOTE | 2022-08-17 12:10 | PT.OTN ---
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/22) Spinal stenosis, lumbar region without neurogenic claudication (08/17/22) Trochanteric bursitis, right hip (08/17/22) Physical Therapy Treatment Note PT-OP-A Visit Information Start: 05/16/22 19:55 Freq: Status: Active Protocol: Document 08/17/22 13:51 AMB (Rec: 08/17/22 14:33 AMB [id number]) Out-Patient Physical Therapy Visit Information Visit Information Visit Type Treatment Note Visit Start Time 13:45 Visit Stop Time 14:30 Total Visit Minutes 45 Visit Number 23 PT-OP-B Current Condition Start: 05/16/22 19:55 Freq: Status: Active Protocol: Document 05/17/22 13:01 AMB (Rec: 05/17/22 13:20 AMB [id number]) Current Condition History of Current Condition Onset Date actue exacerbation of chronic pain Current Complaints back pain History of Current Condition Maggi attends for back pain, parkinsons. Standing increases the pain. Rolling over in bed is painful and wakes her up. Does do BIG exercises and overall feels better while moving, standing stationary is the most painful . She cooks a lot and this is painful for her. When waking up legs feel weak. Has had PD for years, does notice freezing vinny in doorways, difficulty walking backwards. Treatment Goals Patient/Caregiver Goals STand, roll over less back pain, walking less hip pain bilateral Personal Factors Other Personal Factors That May Effect Parkinsons Therapy/Recovery PT-OP-C Subjective Start: 05/16/22 19:55 Freq: Status: Active Protocol: Document 08/17/22 13:51 AMB (Rec: 08/17/22 14:33 AMB [id number]) OP-PT Subjective Patient Comments Patient Comments Pt reports dizziness is better now, was better after getting a full night of sleep. Is still having tingling at times going down the right leg. PT-OP-G Mobility & Gait Start: 05/16/22 19:55 Freq: Status: Active Protocol: Document 05/17/22 13:45 AMB (Rec: 05/21/22 21:33 AMB [id number]) OP Mobility Evaluation Bed Mobility Rolling pain with rolling over in bed OP Gait Assessment Comments Gait Comments Freezing at doorway, difficulty with turns, reduced trunk rotation PT-OP-J Posture/Palpation/Skin Start: 05/16/22 19:55 Freq: Status: Active Protocol: Document 05/17/22 13:45 AMB (Rec: 05/21/22 21:33 AMB [id number]) Posture Evaluation Comments Posture Comments Flat lumbar spine Palpation Assessment Location One Palpation Findings Soft Tissue Tightness, Tenderness Palpation Details lumbar paraspinals hypertonic PT-OP-K Range of Motion Start: 05/16/22 19:55 Freq: Status: Active Protocol: Document 06/20/22 13:52 LRN (Rec: 06/20/22 17:09 LRN [id number]) Hip Goniometric Range of Motion Hip Right Passive Straight Leg Raise 70 Abduction 35 Internal Rotation 35 External Rotation 55 Left Passive Testing Position Supine Straight Leg Raise 70 Abduction 30 Internal Rotation 20 External Rotation 65 PT-OP-Q Treatments Start: 05/16/22 19:55 Freq: Status: Active Protocol: Document 08/17/22 13:45 AMB (Rec: 08/18/22 11:53 AMB [id number]-) Therapeutic Exercises Supine Exercises bridges Supine Exercise Name HEP reviewed Resistance added Y TB around knees Reps/Minutes x10 Comments painfree, cued core and glut fac lift IT band stretch Supine Exercise Name HS, calf stretch as well Side bilateral Resistance in PT only Equipment Used manual Reps/Minutes 30x2 Comments to challenging performing self LTR Supine Exercise Name HEP review Side bilateral Reps/Minutes x10 Comments cued keep pelvis still single knee to chest Side bilateral Reps/Minutes 30x2 Comments good form and stretch response , reports helped with her pain symptoms. piriformis stretch Supine Exercise Name Piriformis stretch Side left Reps/Minutes 60 x 1 Sidelying Exercises clamshell Side bilateral Reps/Minutes 2x10 Comments cues for amplitude Standing Exercises squats Standing Exercise Name lifting 10# crate from floor Reps/Minutes 10 Comments cued hip hinge, engage core Step outs Side bilateral Resistance LVL 2 Reps/Minutes 2x10 Comments Cues for keeping feet straight ahead and posture Gait Training Gait Activity no AD Level of Assistance SBA Distance/Duration 600'X1 Comments Better gait today, cued trunk rotation and step length PT-OP-R Modalities Start: 05/16/22 19:55 Freq: Status: Active Protocol: Document 08/17/22 13:45 AMB (Rec: 08/18/22 12:03 AMB [id number]) Electric Stimulation Electric Stimulation Interferential Current (IFC) Body Location B low back Duration (Minutes) 10 Intensity 14 Target/Sweep Sweep Patient Position Supine Combined With Heat/Cold Hot Pack PT-OP-T Assessment and Plan Start: 05/16/22 19:55 Freq: Status: Active Protocol: Document 08/17/22 13:45 AMB (Rec: 08/18/22 11:53 AMB [id number]) Physical Therapy Assessment Goals Two Impairment Transfers Short Term Goal (STG) Maggi will roll over in bed without an increase in back pain. 06/08/22: reports getting better especially after stretches before gets up but still some pain. STG Duration 4 weeks progressing 06/08 Adjunct Psychology Faculty Member Goal (LTG) Maggi will move from supine to standing in the morning after doing her exercises without an increase in back pain. 06/20/22: Pain persists. 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 06/08/22 unsure if understands but states able to stand up to 3 hours before has to sit down due to LBP but at times if hurries causes increase pain, no time identified. 06/15/22: able to stand 30-60 min cooking in kitchen before LB starts to hurt and needs sit down or goes lay down and do stretches to make go away. 06/20/22: More pain with standing 1 hr to cook meal. STG Duration 4 weeks progressing 06/15/22 Longterm Goal (LTG) Maggi will walk for 30 minutes without an increase in bilateral hip pain. 06/08/22: GOAL MET: post injection hasn't had hip pain March or Apr. 06/15/22: able to stand 30-60 min cooking in kitchen before LB starts to hurt and needs sit down or goes lay down and do stretches to make go away. 06/20/22: Sometimes pain is worse with walking. LTG Duration 8 weeks GOAL MET 06/08/22 Assessment Summary Assessment Maggi had less pain today but continues to have significant difficulty with using good amplitude in the L LE. R LE continues to have intermittent tingling worse with activity/ standing improves with manual traction, supine ex. Encouraged pt in continued focus on amplitude, to stop gait if she is baby stepping and then take a big mindful step. Asked pt to be mindful of when dizziness comes on, to see if vestibular eval needed . Pt requests estim, does have TENS unit at home and has been trained. Physical Therapy Plan Frequency and Duration Frequency of Treatment 2x/Week Duration of treatment (weeks) 8 Plan of Care Start Date 08/05/22 Plan of Care End Date 09/30/22 Therapeutic Interventions Therapeutic Interventions Balance Training,Gait Training ,Home Exercise Program,Joint Mobilizations,Manual Therapy, Neuromuscular Re-education, Self-Care/Home Management, Therapeutic Activities, Therapeutic Exercises Modalities Cold Pack/Ice Massage,Electric Stimulation,Hot Packs, Traction- Mechanical Next Visit Focus/Plan Next Note Type Treatment Note Next Visit Plan Continue to progress standing exercises, gait, continue with bed mobility training. Follow up on new onset tingling through posterior R LE.
--- NOTE | 2022-08-19 13:00 | PT.OTN ---
Addendum entered and electronically signed by Corinne Galeano, ANTONIO 08/19/22 13:06: Pt good mechanics getting items on/ off floor, 1 UE support good stabiltiy to clean floors. Original Note: Current Diagnoses Parkinson's disease (08/19/22) Spondylosis without myelopathy or radiculopathy, lumbar region (08/19/22) Spinal stenosis, lumbar region without neurogenic claudication (08/19/22) Trochanteric bursitis, right hip (08/19/22) Physical Therapy Treatment Note PT-OP-A Visit Information Start: 05/16/22 19:55 Freq: Status: Active Protocol: Document 08/19/22 12:26 SP (Rec: 08/19/22 13:05 SP [id number]) Out-Patient Physical Therapy Visit Information Visit Information Visit Type Treatment Note Visit Start Time 12:26 Visit Stop Time 13:00 Total Visit Minutes 34 Visit Number 24 Number of HARDWOOD FALLER Visits 1 Evaluation Information Evaluation Date 05/17/22 PT-OP-B Current Condition Start: 05/16/22 19:55 Freq: Status: Active Protocol: Document 05/17/22 13:01 AMB (Rec: 05/17/22 13:20 AMB [id number]) Current Condition History of Current Condition Onset Date actue exacerbation of chronic pain Current Complaints back pain History of Current Condition Maggi attends for back pain, parkinsons. Standing increases the pain. Rolling over in bed is painful and wakes her up. Does do BIG exercises and overall feels better while moving, standing stationary is the most painful . She cooks a lot and this is painful for her. When waking up legs feel weak. Has had PD for years, does notice freezing vinny in doorways, difficulty walking backwards. Treatment Goals Patient/Caregiver Goals STand, roll over less back pain, walking less hip pain bilateral Personal Factors Other Personal Factors That May Effect Parkinsons Therapy/Recovery PT-OP-C Subjective Start: 05/16/22 19:55 Freq: Status: Active Protocol: Document 08/19/22 12:26 SP (Rec: 08/19/22 13:05 SP [id number]) OP-PT Subjective Patient Comments Patient Comments Pt reports frustrating that her feel still scuff when walk . She stated no dizziness. She stated took her vertigo medicine after last appt, slept til the evening, helps. PT-OP-G Mobility & Gait Start: 05/16/22 19:55 Freq: Status: Active Protocol: Document 05/17/22 13:45 AMB (Rec: 05/21/22 21:33 AMB [id number]) OP Mobility Evaluation Bed Mobility Rolling pain with rolling over in bed OP Gait Assessment Comments Gait Comments Freezing at doorway, difficulty with turns, reduced trunk rotation PT-OP-J Posture/Palpation/Skin Start: 05/16/22 19:55 Freq: Status: Active Protocol: Document 05/17/22 13:45 AMB (Rec: 05/21/22 21:33 AMB [id number]-) Posture Evaluation Comments Posture Comments Flat lumbar spine Palpation Assessment Location One Palpation Findings Soft Tissue Tightness, Tenderness Palpation Details lumbar paraspinals hypertonic PT-OP-K Range of Motion Start: 05/16/22 19:55 Freq: Status: Active Protocol: Document 06/20/22 13:52 LRN (Rec: 06/20/22 17:09 LRN [id number]) Hip Goniometric Range of Motion Hip Right Passive Straight Leg Raise 70 Abduction 35 Internal Rotation 35 External Rotation 55 Left Passive Testing Position Supine Straight Leg Raise 70 Abduction 30 Internal Rotation 20 External Rotation 65 PT-OP-Q Treatments Start: 05/16/22 19:55 Freq: Status: Active Protocol: Document 08/19/22 12:26 SP (Rec: 08/19/22 13:05 SP [id number]) Therapeutic Exercises Sitting Exercises Piriformis stretch Sitting Exercise Name Piriformis stretch- trialed but increase L lateral leg pain- DC Side bilateral Reps/Minutes 2x60 Comments reports painfree STS Sitting Exercise Name eccentric squat 18 chair Equipment Used arms across chest Reps/Minutes x10 reps Comments good hip hinge, slow eccentric control Standing Exercises squats Standing Exercise Name lifting 10# crate from floor Reps/Minutes 10 Comments good hip hinge, engage core Step outs Side bilateral Resistance LVL 2 Reps/Minutes 2x10 Comments Cues for keeping feet straight ahead and posture Step Ups Standing Exercise Name step ups to put things away in cupboard, 2. step up/back down 4# leg wt 8b Resistance CGA/ SBA Equipment Used 4 step stool, reach 3# DBs, 8 step 4# leg wt Reps/Minutes x10 reps Comments cued increase foot clearanc, toes caught x2 self recovery Gait Training Gait Activity no AD Level of Assistance SBA Distance/Duration 340 Comments Better gait today, cued trunk rotation and step length post cues for steel pickler your toes ( DF) PT-OP-R Modalities Start: 05/16/22 19:55 Freq: Status: Active Protocol: Document 08/17/22 13:45 AMB (Rec: 08/18/22 12:03 AMB [id number]) Electric Stimulation Electric Stimulation Interferential Current (IFC) Body Location B low back Duration (Minutes) 10 Intensity 14 Target/Sweep Sweep Patient Position Supine Combined With Heat/Cold Hot Pack PT-OP-T Assessment and Plan Start: 05/16/22 19:55 Freq: Status: Active Protocol: Document 08/19/22 12:26 SP (Rec: 08/19/22 13:05 SP [id number]) Physical Therapy Assessment Goals Two Impairment Transfers Short Term Goal (STG) Maggi will roll over in bed without an increase in back pain. 06/08/22: reports getting better especially after stretches before gets up but still some pain. STG Duration 4 weeks progressing 06/08 Freight Conductor Goal (LTG) Maggi will move from supine to standing in the morning after doing her exercises without an increase in back pain. 06/20/22: Pain persists. 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 06/08/22 unsure if understands but states able to stand up to 3 hours before has to sit down due to LBP but at times if hurries causes increase pain, no time identified. 06/15/22: able to stand 30-60 min cooking in kitchen before LB starts to hurt and needs sit down or goes lay down and do stretches to make go away. 06/20/22: More pain with standing 1 hr to cook meal. STG Duration 4 weeks progressing 06/15/22 Freight Conductor Goal (LTG) Maggi will walk for 30 minutes without an increase in bilateral hip pain. 06/08/22: GOAL MET: post injection hasn't had hip pain March or Apr. 06/15/22: able to stand 30-60 min cooking in kitchen before LB starts to hurt and needs sit down or goes lay down and do stretches to make go away. 06/20/22: Sometimes pain is worse with walking. LTG Duration 8 weeks GOAL MET 06/08/22 Assessment Summary Assessment Pt improved foot clearance post wt'd step patterning, gait cues steel pickler toes and lift mechanics and step up put items away cabinet. Physical Therapy Plan Frequency and Duration Frequency of Treatment 2x/Week Duration of treatment (weeks) 8 Plan of Care Start Date 08/05/22 Plan of Care End Date 09/30/22 Therapeutic Interventions Therapeutic Interventions Balance Training,Gait Training ,Home Exercise Program,Joint Mobilizations,Manual Therapy, Neuromuscular Re-education, Self-Care/Home Management, Therapeutic Activities, Therapeutic Exercises Modalities Cold Pack/Ice Massage,Electric Stimulation,Hot Packs, Traction- Mechanical Next Visit Focus/Plan Next Note Type Treatment Note Next Visit Plan Continue functional activities for balance and foot clearance. Continue to progress standing exercises, gait, continue with bed mobility training. Follow up on new onset tingling through posterior R LE.
--- NOTE | 2022-08-23 13:02 | PT.OTN ---
Current Diagnoses Parkinson's disease (08/23/22) Spondylosis without myelopathy or radiculopathy, lumbar region (08/23/22) Spinal stenosis, lumbar region without neurogenic claudication (08/23/22) Trochanteric bursitis, right hip (08/23/22) Physical Therapy Treatment Note PT-OP-A Visit Information Start: 05/16/22 19:55 Freq: Status: Active Protocol: Document 08/23/22 11:17 AMB (Rec: 08/23/22 12:02 AMB [id number]) Out-Patient Physical Therapy Visit Information Visit Information Visit Type Treatment Note Visit Note 11/28 till next progress note Visit Start Time 11:15 Visit Stop Time 12:00 Total Visit Minutes 45 Visit Number 25 PT-OP-B Current Condition Start: 05/16/22 19:55 Freq: Status: Active Protocol: Document 05/17/22 13:01 AMB (Rec: 05/17/22 13:20 AMB [id number]) Current Condition History of Current Condition Onset Date actue exacerbation of chronic pain Current Complaints back pain History of Current Condition Maggi attends for back pain, parkinsons. Standing increases the pain. Rolling over in bed is painful and wakes her up. Does do BIG exercises and overall feels better while moving, standing stationary is the most painful . She cooks a lot and this is painful for her. When waking up legs feel weak. Has had PD for years, does notice freezing vinny in doorways, difficulty walking backwards. Treatment Goals Patient/Caregiver Goals STand, roll over less back pain, walking less hip pain bilateral Personal Factors Other Personal Factors That May Effect Parkinsons Therapy/Recovery PT-OP-C Subjective Start: 05/16/22 19:55 Freq: Status: Active Protocol: Document 08/23/22 11:17 AMB (Rec: 08/23/22 12:02 AMB [id number]) OP-PT Subjective Patient Comments Patient Comments Denies any dizziness today. R leg is tingling a little bit today. Overall back is feeling ok, pt feels like back is a little better, did a lot of walking yesterday. PT-OP-G Mobility & Gait Start: 05/16/22 19:55 Freq: Status: Active Protocol: Document 05/17/22 13:45 AMB (Rec: 05/21/22 21:33 AMB [id number]) OP Mobility Evaluation Bed Mobility Rolling pain with rolling over in bed OP Gait Assessment Comments Gait Comments Freezing at doorway, difficulty with turns, reduced trunk rotation PT-OP-J Posture/Palpation/Skin Start: 05/16/22 19:55 Freq: Status: Active Protocol: Document 05/17/22 13:45 AMB (Rec: 05/21/22 21:33 AMB [id number]) Posture Evaluation Comments Posture Comments Flat lumbar spine Palpation Assessment Location One Palpation Findings Soft Tissue Tightness, Tenderness Palpation Details lumbar paraspinals hypertonic PT-OP-K Range of Motion Start: 05/16/22 19:55 Freq: Status: Active Protocol: Document 06/20/22 13:52 LRN (Rec: 06/20/22 17:09 LRN [id number]) Hip Goniometric Range of Motion Hip Right Passive Straight Leg Raise 70 Abduction 35 Internal Rotation 35 External Rotation 55 Left Passive Testing Position Supine Straight Leg Raise 70 Abduction 30 Internal Rotation 20 External Rotation 65 PT-OP-Q Treatments Start: 05/16/22 19:55 Freq: Status: Active Protocol: Document 08/23/22 11:17 AMB (Rec: 08/23/22 12:02 AMB [id number]) Therapeutic Exercises Supine Exercises bridges Supine Exercise Name HEP reviewed Resistance added Y TB around knees Reps/Minutes x10 Comments painfree, cued core and glut fac lift Sidelying Exercises clamshell Side bilateral Reps/Minutes 2x10 Comments cues for amplitude Standing Exercises forward/backward/sidestepping Standing Exercise Name focus on amplitude Reps/Minutes 5'x15 ea squats Standing Exercise Name lifting 10# crate from floor Reps/Minutes 10 Comments good hip hinge, engage core Other Exercises quadruped UE ext Other Exercise Name Added LE then UE ext Reps/Minutes 2x10 Comments improved core stability PT-OP-R Modalities Start: 05/16/22 19:55 Freq: Status: Active Protocol: Document 08/23/22 11:15 AMB (Rec: 08/23/22 12:58 AMB [id number]) Electric Stimulation Electric Stimulation Interferential Current (IFC) Body Location B low back Duration (Minutes) 10 Intensity 14 Target/Sweep Sweep Patient Position Supine Combined With Heat/Cold Hot Pack PT-OP-T Assessment and Plan Start: 05/16/22 19:55 Freq: Status: Active Protocol: Document 08/23/22 11:17 AMB (Rec: 08/23/22 12:02 AMB [id number]) Physical Therapy Assessment Goals Two Impairment Transfers Short Term Goal (STG) Maggi will roll over in bed without an increase in back pain. 06/08/22: reports getting better especially after stretches before gets up but still some pain. STG Duration 4 weeks progressing 06/08 [employer]cf Goal (LTG) Maggi will move from supine to standing in the morning after doing her exercises without an increase in back pain. 06/20/22: Pain persists. 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 06/08/22 unsure if understands but states able to stand up to 3 hours before has to sit down due to LBP but at times if hurries causes increase pain, no time identified. 06/15/22: able to stand 30-60 min cooking in kitchen before LB starts to hurt and needs sit down or goes lay down and do stretches to make go away. 06/20/22: More pain with standing 1 hr to cook meal. STG Duration 4 weeks progressing 06/15/22 Gameplay Programmer Goal (LTG) Maggi will walk for 30 minutes without an increase in bilateral hip pain. 06/08/22: GOAL MET: post injection hasn't had hip pain March or Apr. 06/15/22: able to stand 30-60 min cooking in kitchen before LB starts to hurt and needs sit down or goes lay down and do stretches to make go away. 06/20/22: Sometimes pain is worse with walking. LTG Duration 8 weeks GOAL MET 06/08/22 Assessment Summary Assessment Pt had a better day today, was able to tolerate stepping well, was challenged by backward stepping but did improve with cues for amplitude. Physical Therapy Plan Frequency and Duration Frequency of Treatment 2x/Week Duration of treatment (weeks) 8 Plan of Care Start Date 08/05/22 Plan of Care End Date 09/30/22 Therapeutic Interventions Therapeutic Interventions Balance Training,Gait Training ,Home Exercise Program,Joint Mobilizations,Manual Therapy, Neuromuscular Re-education, Self-Care/Home Management, Therapeutic Activities, Therapeutic Exercises Modalities Cold Pack/Ice Massage,Electric Stimulation,Hot Packs, Traction- Mechanical Next Visit Focus/Plan Next Note Type Treatment Note Next Visit Plan Continue functional activities for balance and foot clearance. Continue to progress standing exercises, gait, continue with bed mobility training. Follow up on new onset tingling through posterior R LE.
--- NOTE | 2022-08-29 10:30 | PT.OTN ---
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/22) Spinal stenosis, lumbar region without neurogenic claudication (08/29/22) Trochanteric bursitis, right hip (08/29/22) Physical Therapy Treatment Note PT-OP-A Visit Information Start: 05/16/22 19:55 Freq: Status: Active Protocol: Document 08/29/22 09:51 SP (Rec: 08/29/22 10:33 SP [id number]) Out-Patient Physical Therapy Visit Information Visit Information Visit Type Treatment Note Visit Note 11/28 til next PN Visit Start Time 09:51 Visit Stop Time 10:30 Total Visit Minutes 39 Visit Number 26 Number of CABIN FURNISHINGS INSTALLER Visits 1 Evaluation Information Evaluation Date 05/17/22 PT-OP-B Current Condition Start: 05/16/22 19:55 Freq: Status: Active Protocol: Document 05/17/22 13:01 AMB (Rec: 05/17/22 13:20 AMB [id number]) Current Condition History of Current Condition Onset Date actue exacerbation of chronic pain Current Complaints back pain History of Current Condition Maggi attends for back pain, parkinsons. Standing increases the pain. Rolling over in bed is painful and wakes her up. Does do BIG exercises and overall feels better while moving, standing stationary is the most painful . She cooks a lot and this is painful for her. When waking up legs feel weak. Has had PD for years, does notice freezing vinny in doorways, difficulty walking backwards. Treatment Goals Patient/Caregiver Goals STand, roll over less back pain, walking less hip pain bilateral Personal Factors Other Personal Factors That May Effect Parkinsons Therapy/Recovery PT-OP-C Subjective Start: 05/16/22 19:55 Freq: Status: Active Protocol: Document 08/29/22 09:51 SP (Rec: 08/29/22 10:33 SP [id number]) OP-PT Subjective Patient Comments Patient Comments Pt reports R hip and back hurting today. Demonstrates effort lifting each LE, lateral SB trunk during gait and excessive UEs movememt to support LE advancement. SHe reports walked about 1 hr yesterday and didn't bother her back. Someone helped her massage her back yesterday with instrument and helps her R LB feel good. She states no changes in meds when asked and she has appt with neurolgist coming up. PT-OP-G Mobility & Gait Start: 05/16/22 19:55 Freq: Status: Active Protocol: Document 05/17/22 13:45 AMB (Rec: 05/21/22 21:33 AMB [id number]) OP Mobility Evaluation Bed Mobility Rolling pain with rolling over in bed OP Gait Assessment Comments Gait Comments Freezing at doorway, difficulty with turns, reduced trunk rotation PT-OP-J Posture/Palpation/Skin Start: 05/16/22 19:55 Freq: Status: Active Protocol: Document 05/17/22 13:45 AMB (Rec: 05/21/22 21:33 AMB [id number]) Posture Evaluation Comments Posture Comments Flat lumbar spine Palpation Assessment Location One Palpation Findings Soft Tissue Tightness, Tenderness Palpation Details lumbar paraspinals hypertonic PT-OP-K Range of Motion Start: 05/16/22 19:55 Freq: Status: Active Protocol: Document 06/20/22 13:52 LRN (Rec: 06/20/22 17:09 LRN [id number]) Hip Goniometric Range of Motion Hip Right Passive Straight Leg Raise 70 Abduction 35 Internal Rotation 35 External Rotation 55 Left Passive Testing Position Supine Straight Leg Raise 70 Abduction 30 Internal Rotation 20 External Rotation 65 PT-OP-Q Treatments Start: 05/16/22 19:55 Freq: Status: Active Protocol: Document 08/29/22 09:51 SP (Rec: 08/29/22 10:33 SP [id number]) Therapeutic Exercises Supine Exercises bridges Supine Exercise Name HEP reviewed Resistance AROM Reps/Minutes x10 Comments cued head back to table, arms side, ankle neutral, lift pelvis single knee to chest Supine Exercise Name manual assist initially then able self Side bilateral Equipment Used grasp behind thigh Reps/Minutes 30x2 Comments cued head/ shld relax back table, gentle hug knee toward chest piriformis stretch Supine Exercise Name Piriformis stretch: manual assist for controlled movement /relax, benefit Side bilateral Resistance L?R Reps/Minutes 60 x 1 Comments cued head/ shld relax back table, gentle hug knee toward chest Sitting Exercises Piriformis stretch Sitting Exercise Name Piriformis stretch- Side right Reps/Minutes 60 Comments reports painfree good stretch STS Sitting Exercise Name eccentric squat 18 table Equipment Used arms across chest Reps/Minutes x10 reps Comments cued shlds down/back, eccentric sit w/ knees apart- no UT assist Standing Exercises squats Standing Exercise Name lifting 6-10# crate from floor Equipment Used on/off floor and place on lowered mat table Reps/Minutes many reps Comments cued head up, scap retracted, elbows next to ribs, lift LEs- max cues today self STMs Standing Exercise Name Reviewed: R glut med/piriform Side right Reps/Minutes 20 s Comments states helps decrease buttocks tightness end tx. Gait Training Gait Activity no AD Level of Assistance SBA Distance/Duration 340 Comments cued chest/head lift, increase stride/heel clearance, arm swing. Manual Therapy Treatment Soft Tissue Mobilization LB Body Location L QL, Glut med, Pirf, TFL Mobilization Type Cross-Friction,Strumming Intensity/Depth Moderate Body Position Sidelying Comments good feedback decrease LB/ hip muscle tightness PT-OP-R Modalities Start: 05/16/22 19:55 Freq: Status: Active Protocol: Document 08/23/22 11:15 AMB (Rec: 08/23/22 12:58 AMB [id number]) Electric Stimulation Electric Stimulation Interferential Current (IFC) Body Location B low back Duration (Minutes) 10 Intensity 14 Target/Sweep Sweep Patient Position Supine Combined With Heat/Cold Hot Pack PT-OP-T Assessment and Plan Start: 05/16/22 19:55 Freq: Status: Active Protocol: Document 08/29/22 09:51 SP (Rec: 08/29/22 10:33 SP [id number]) Physical Therapy Assessment Goals Two Impairment Transfers Short Term Goal (STG) Maggi will roll over in bed without an increase in back pain. 06/08/22: reports getting better especially after stretches before gets up but still some pain. STG Duration 4 weeks progressing 06/08 Usp Goal (LTG) Maggi will move from supine to standing in the morning after doing her exercises without an increase in back pain. 06/20/22: Pain persists. LTG Duration 8 weeks One Impairment Back pain Short Term Goal (STG) Maggi will stand to corn cooker for 30 minutes without an increase in her baseline back pain. 06/08/22 unsure if understands but states able to stand up to 3 hours before has to sit down due to LBP but at times if hurries causes increase pain, no time identified. 06/15/22: able to stand 30-60 min cooking in kitchen before LB starts to hurt and needs sit down or goes lay down and do stretches to make go away. 06/20/22: More pain with standing 1 hr to cook meal. STG Duration 4 weeks progressing 06/15/22 Heat Set Operator Goal (LTG) Maggi will walk for 30 minutes without an increase in bilateral hip pain. 06/08/22: GOAL MET: post injection hasn't had hip pain March or Apr. 06/15/22: able to stand 30-60 min cooking in kitchen before LB starts to hurt and needs sit down or goes lay down and do stretches to make go away. 06/20/22: Sometimes pain is worse with walking. LTG Duration 8 weeks GOAL MET 06/08/22 Assessment Summary Assessment Pt increased parkinson's unconscious movements during throughout tx today: scapular rolls/wrist rolls, hip hike, max cues for tall trunk/head posturing scap stab (retract/ depress), neutral ankle alignment flat foot, R ankle tended to PF/ IV, improved with cues gait/ STMs and manual support currections durign hip strething to allow proper form and carryover STS, lifting mechanics and gait during tx. Pt improved gait and trunk posturing stability leaving tx with better foot clearance. She states no changes in meds and has appt with neurolgist coming up. Physical Therapy Plan Frequency and Duration Frequency of Treatment 2x/Week Duration of treatment (weeks) 8 Plan of Care Start Date 08/05/22 Plan of Care End Date 09/30/22 Therapeutic Interventions Therapeutic Interventions Balance Training,Gait Training ,Home Exercise Program,Joint Mobilizations,Manual Therapy, Neuromuscular Re-education, Self-Care/Home Management, Therapeutic Activities, Therapeutic Exercises Modalities Cold Pack/Ice Massage,Electric Stimulation,Hot Packs, Traction- Mechanical Next Visit Focus/Plan Next Note Type Treatment Note Next Visit Plan Continue functional activities for balance and foot clearance. Continue to progress standing exercises, gait, continue with bed mobility training. Follow up on new onset tingling through posterior R LE.
--- NOTE | 2022-08-31 14:00 | PT.OTN ---
Current Diagnoses Parkinson's disease (08/31/22) Spondylosis without myelopathy or radiculopathy, lumbar region (08/31/22) Spinal stenosis, lumbar region without neurogenic claudication (08/31/22) Trochanteric bursitis, right hip (08/31/22) Physical Therapy Treatment Note PT-OP-A Visit Information Start: 05/16/22 19:55 Freq: Status: Active Protocol: Document 08/31/22 13:03 AMB (Rec: 08/31/22 13:47 AMB [id number]) Out-Patient Physical Therapy Visit Information Visit Information Visit Type Treatment Note Visit Note 01/28 til next PN Visit Start Time 13:00 Visit Stop Time 13:45 Total Visit Minutes 40 Visit Number 27 PT-OP-B Current Condition Start: 05/16/22 19:55 Freq: Status: Active Protocol: Document 05/17/22 13:01 AMB (Rec: 05/17/22 13:20 AMB [id number]) Current Condition History of Current Condition Onset Date actue exacerbation of chronic pain Current Complaints back pain History of Current Condition Maggi attends for back pain, parkinsons. Standing increases the pain. Rolling over in bed is painful and wakes her up. Does do BIG exercises and overall feels better while moving, standing stationary is the most painful . She cooks a lot and this is painful for her. When waking up legs feel weak. Has had PD for years, does notice freezing vinny in doorways, difficulty walking backwards. Treatment Goals Patient/Caregiver Goals STand, roll over less back pain, walking less hip pain bilateral Personal Factors Other Personal Factors That May Effect Parkinsons Therapy/Recovery PT-OP-C Subjective Start: 05/16/22 19:55 Freq: Status: Active Protocol: Document 08/31/22 13:03 AMB (Rec: 08/31/22 13:47 AMB [id number]) OP-PT Subjective Patient Comments Patient Comments Pt noticing dizziness today. Had increased back pain yesterday evening but today is ok. PT-OP-G Mobility & Gait Start: 05/16/22 19:55 Freq: Status: Active Protocol: Document 05/17/22 13:45 AMB (Rec: 05/21/22 21:33 AMB [id number]) OP Mobility Evaluation Bed Mobility Rolling pain with rolling over in bed OP Gait Assessment Comments Gait Comments Freezing at doorway, difficulty with turns, reduced trunk rotation PT-OP-J Posture/Palpation/Skin Start: 05/16/22 19:55 Freq: Status: Active Protocol: Document 05/17/22 13:45 AMB (Rec: 05/21/22 21:33 AMB [id number]-) Posture Evaluation Comments Posture Comments Flat lumbar spine Palpation Assessment Location One Palpation Findings Soft Tissue Tightness, Tenderness Palpation Details lumbar paraspinals hypertonic PT-OP-K Range of Motion Start: 05/16/22 19:55 Freq: Status: Active Protocol: Document 06/20/22 13:52 LRN (Rec: 06/20/22 17:09 LRN [id number]) Hip Goniometric Range of Motion Hip Right Passive Straight Leg Raise 70 Abduction 35 Internal Rotation 35 External Rotation 55 Left Passive Testing Position Supine Straight Leg Raise 70 Abduction 30 Internal Rotation 20 External Rotation 65 PT-OP-Q Treatments Start: 05/16/22 19:55 Freq: Status: Active Protocol: Document 08/31/22 13:00 AMB (Rec: 09/01/22 11:40 AMB [id number]-) Therapeutic Exercises Supine Exercises Lateral Hip stretch Supine Exercise Name Lateral Hip stretch Side left Reps/Minutes 60 IT band stretch Supine Exercise Name HS, calf stretch as well Side bilateral Resistance in PT only Equipment Used manual Reps/Minutes 30x2 Comments to challenging performing self single knee to chest Supine Exercise Name manual assist initially then able self Side bilateral Equipment Used grasp behind thigh Reps/Minutes 30x2 Comments cued head/ shld relax back table, gentle hug knee toward chest piriformis stretch Supine Exercise Name Piriformis stretch: manual assist for controlled movement /relax, benefit Side bilateral Resistance L?R Reps/Minutes 60 x 1 Comments cued head/ shld relax back table, gentle hug knee toward chest Standing Exercises forward/backward/sidestepping Standing Exercise Name focus on amplitude Reps/Minutes 5'x15 ea squats Standing Exercise Name lifting 6-10# crate from floor Equipment Used on/off floor and place on lowered mat table Reps/Minutes 10 Comments cued head up, scap retracted, elbows next to ribs, lift LEs- max cues today Step outs Side bilateral Resistance LVL 2 Reps/Minutes 2x10 Comments Cues for keeping feet straight ahead and posture Neuro Re-Education Treatment Other Activities 1 Details BPPV screen Comments pt reported dizziness with B Martha Hallpike but did not show any nystagmus. Did not have any latency and sx also did not dissipate so unlikely to BPPV, could consider other vestibular or central causes. PT-OP-R Modalities Start: 05/16/22 19:55 Freq: Status: Active Protocol: Document 08/31/22 13:00 AMB (Rec: 09/01/22 11:41 AMB [id number]) Electric Stimulation Electric Stimulation Interferential Current (IFC) Body Location B low back Duration (Minutes) 10 Intensity 14 Target/Sweep Sweep Patient Position Supine Combined With Heat/Cold Hot Pack PT-OP-T Assessment and Plan Start: 05/16/22 19:55 Freq: Status: Active Protocol: Document 08/31/22 13:03 AMB (Rec: 08/31/22 13:47 AMB [id number]) Physical Therapy Assessment Goals Two Impairment Transfers Short Term Goal (STG) Maggi will roll over in bed without an increase in back pain. 08/31: Pt reports needs to help her 1-2x/week with bed mobility STG Duration 4 weeks Mri Supervisor Goal (LTG) Maggi will move from supine to standing in the morning after doing her exercises without an increase in back pain. 06/20/22: Pain persists. 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 06/08/22 unsure if understands but states able to stand up to 3 hours before has to sit down due to LBP but at times if hurries causes increase pain, no time identified. 06/15/22: able to stand 30-60 min cooking in kitchen before LB starts to hurt and needs sit down or goes lay down and do stretches to make go away. 06/20/22: More pain with standing 1 hr to cook meal. STG Duration MET Mri Supervisor Goal (LTG) Maggi will walk for 30 minutes without an increase in bilateral hip pain. 06/08/22: GOAL MET: post injection hasn't had hip pain March or Apr. 06/15/22: able to stand 30-60 min cooking in kitchen before LB starts to hurt and needs sit down or goes lay down and do stretches to make go away. 06/20/22: Sometimes pain is worse with walking. LTG Duration MET Assessment Summary Assessment Pt thinks tingling is better with SKTC and piriformis stretches. No signs of BPPV today, encouraged pt to follow up with MD regarding dizziness if needed. Pt having a better today regarding Parkinsonian movement patterning. Pain seems to come and go, but does continue to have pain with bed mobility. Physical Therapy Plan Frequency and Duration Frequency of Treatment 2x/Week Duration of treatment (weeks) 8 Plan of Care Start Date 08/05/22 Plan of Care End Date 09/30/22 Therapeutic Interventions Therapeutic Interventions Balance Training,Gait Training ,Home Exercise Program,Joint Mobilizations,Manual Therapy, Neuromuscular Re-education, Self-Care/Home Management, Therapeutic Activities, Therapeutic Exercises Modalities Cold Pack/Ice Massage,Electric Stimulation,Hot Packs, Traction- Mechanical Next Visit Focus/Plan Next Note Type Treatment Note Next Visit Plan Continue functional activities for balance and foot clearance. Continue to progress standing exercises, gait, continue with bed mobility training.
--- NOTE | 2022-09-05 13:00 | PT.OTN ---
Current Diagnoses Parkinson's disease (09/05/22) Spondylosis without myelopathy or radiculopathy, lumbar region (09/05/22) Spinal stenosis, lumbar region without neurogenic claudication (09/05/22) Trochanteric bursitis, right hip (09/05/22) Physical Therapy Treatment Note PT-OP-A Visit Information Start: 05/16/22 19:55 Freq: Status: Active Protocol: Document 09/05/22 12:19 SP (Rec: 09/05/22 13:06 SP [id number]) Out-Patient Physical Therapy Visit Information Visit Information Visit Type Treatment Note Visit Note 02/27 until next PN Visit Start Time 12:19 Visit Stop Time 13:00 Total Visit Minutes 41 Visit Number 28 Number of PEST CONTROL PILOT Visits 1 PT-OP-B Current Condition Start: 05/16/22 19:55 Freq: Status: Active Protocol: Document 05/17/22 13:01 AMB (Rec: 05/17/22 13:20 AMB [id number]) Current Condition History of Current Condition Onset Date actue exacerbation of chronic pain Current Complaints back pain History of Current Condition Maggi attends for back pain, parkinsons. Standing increases the pain. Rolling over in bed is painful and wakes her up. Does do BIG exercises and overall feels better while moving, standing stationary is the most painful . She cooks a lot and this is painful for her. When waking up legs feel weak. Has had PD for years, does notice freezing vinny in doorways, difficulty walking backwards. Treatment Goals Patient/Caregiver Goals STand, roll over less back pain, walking less hip pain bilateral Personal Factors Other Personal Factors That May Effect Parkinsons Therapy/Recovery PT-OP-C Subjective Start: 05/16/22 19:55 Freq: Status: Active Protocol: Document 09/05/22 12:19 SP (Rec: 09/05/22 13:06 SP [id number]) OP-PT Subjective Patient Comments Patient Comments states pt hard time getting started on stairs when stops. Pt reports has her monthly massage this Wed. PT-OP-G Mobility & Gait Start: 05/16/22 19:55 Freq: Status: Active Protocol: Document 05/17/22 13:45 AMB (Rec: 05/21/22 21:33 AMB [id number]) OP Mobility Evaluation Bed Mobility Rolling pain with rolling over in bed OP Gait Assessment Comments Gait Comments Freezing at doorway, difficulty with turns, reduced trunk rotation PT-OP-J Posture/Palpation/Skin Start: 05/16/22 19:55 Freq: Status: Active Protocol: Document 05/17/22 13:45 AMB (Rec: 05/21/22 21:33 AMB [id number]) Posture Evaluation Comments Posture Comments Flat lumbar spine Palpation Assessment Location One Palpation Findings Soft Tissue Tightness, Tenderness Palpation Details lumbar paraspinals hypertonic PT-OP-K Range of Motion Start: 05/16/22 19:55 Freq: Status: Active Protocol: Document 06/20/22 13:52 LRN (Rec: 06/20/22 17:09 LRN [id number]) Hip Goniometric Range of Motion Hip Right Passive Straight Leg Raise 70 Abduction 35 Internal Rotation 35 External Rotation 55 Left Passive Testing Position Supine Straight Leg Raise 70 Abduction 30 Internal Rotation 20 External Rotation 65 PT-OP-Q Treatments Start: 05/16/22 19:55 Freq: Status: Active Protocol: Document 09/05/22 12:19 SP (Rec: 09/05/22 13:06 SP [id number]) Therapeutic Exercises Standing Exercises band walks Standing Exercise Name lateral Side bilateral Resistance RTB Reps/Minutes 20 ft x3 laps Comments Cues for keeping feet straight ahead and posture shld ext, rows Standing Exercise Name in PT Side bilateral Resistance Tb #2 ext, TB #3 rows Reps/Minutes [id number] Comments cued tall chest lift, scap retraction arms close to side con/ ecc forward/backward/sidestepping Standing Exercise Name focus on amplitude Reps/Minutes 20 ft x3 laps each Comments cued tall posturing, arm swing squats Standing Exercise Name lifting 10# crate from floor Equipment Used on/off floor Reps/Minutes STS from sit chair, then x10 picking machine operator off floor Comments cued head up, scap retracted, elbows next to ribs, lift LEs/ scap retract Step outs Standing Exercise Name f/b/lateral Side bilateral Resistance arms large FF, ABD (BIG steps) Reps/Minutes x10 reps each side/direction Comments Cues for keeping feet straight ahead and posture Step Ups Standing Exercise Name step ups to put things away in cupboard, 2. step up/back down 4# leg wt 8b Resistance CGA/ SBA Equipment Used 8 step silver step stool, 3# DB reach OH Reps/Minutes x10 reps alternating UE/ LEs step up and UE reach OH Comments cued awareness LE clearance step up Gait Training Gait Activity stairs Device Used 0 Level of Assistance S Distance/Duration 28 stairs MAP BLDG Treatment Focus foot clearance, receiprocal stepping Comments good form receiprocal stepping , no LOB Manual Therapy Treatment Soft Tissue Mobilization LB Body Location R today Glut med, Pirf Mobilization Type Cross-Friction,Strumming Intensity/Depth Moderate Body Position Sidelying Comments good feedback decrease R hip muscle tightness PT-OP-R Modalities Start: 05/16/22 19:55 Freq: Status: Active Protocol: Document 08/31/22 13:00 AMB (Rec: 09/01/22 11:41 AMB [id number]) Electric Stimulation Electric Stimulation Interferential Current (IFC) Body Location B low back Duration (Minutes) 10 Intensity 14 Target/Sweep Sweep Patient Position Supine Combined With Heat/Cold Hot Pack PT-OP-T Assessment and Plan Start: 05/16/22 19:55 Freq: Status: Active Protocol: Document 09/05/22 12:19 SP (Rec: 09/05/22 13:06 SP [id number]) Physical Therapy Assessment Goals Two Impairment Transfers Short Term Goal (STG) Maggi will roll over in bed without an increase in back pain. 08/31: Pt reports needs to help her 1-2x/week with bed mobility STG Duration 4 weeks Seismograph Helper Goal (LTG) Maggi will move from supine to standing in the morning after doing her exercises without an increase in back pain. 06/20/22: Pain persists. 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 06/08/22 unsure if understands but states able to stand up to 3 hours before has to sit down due to LBP but at times if hurries causes increase pain, no time identified. 06/15/22: able to stand 30-60 min cooking in kitchen before LB starts to hurt and needs sit down or goes lay down and do stretches to make go away. 06/20/22: More pain with standing 1 hr to cook meal. STG Duration MET Seismograph Helper Goal (LTG) Maggi will walk for 30 minutes without an increase in bilateral hip pain. 10/19/22: GOAL MET: post injection hasn't had hip pain March or Apr. 06/15/22: able to stand 30-60 min cooking in kitchen before LB starts to hurt and needs sit down or goes lay down and do stretches to make go away. 06/20/22: Sometimes pain is worse with walking. LTG Duration MET Assessment Summary Assessment Pt improved amplitude, cues increase stride and posturing with better foot clearance. Pt good stair mgt near rail but not needed reciprocal stepping . Physical Therapy Plan Frequency and Duration Frequency of Treatment 2x/Week Duration of treatment (weeks) 8 Plan of Care Start Date 08/05/22 Plan of Care End Date 09/30/22 Therapeutic Interventions Therapeutic Interventions Balance Training,Gait Training ,Home Exercise Program,Joint Mobilizations,Manual Therapy, Neuromuscular Re-education, Self-Care/Home Management, Therapeutic Activities, Therapeutic Exercises Modalities Cold Pack/Ice Massage,Electric Stimulation,Hot Packs, Traction- Mechanical Next Visit Focus/Plan Next Note Type Treatment Note Next Visit Plan Check appts and POC , pt unsure 1-2x/wk. POC: Continue functional activities for balance and foot clearance. Continue to progress standing exercises, gait, continue with bed mobility training.
--- NOTE | 2022-09-12 13:45 | PT.OTN ---
Current Diagnoses Parkinson's disease (09/12/22) Spondylosis without myelopathy or radiculopathy, lumbar region (09/12/22) Spinal stenosis, lumbar region without neurogenic claudication (09/12/22) Trochanteric bursitis, right hip (09/12/22) Physical Therapy Treatment Note PT-OP-A Visit Information Start: 05/16/22 19:55 Freq: Status: Active Protocol: Document 09/12/22 13:06 SP (Rec: 09/12/22 13:47 SP [id number]) Out-Patient Physical Therapy Visit Information Visit Information Visit Type Treatment Note Visit Note 03/30 until next PN Visit Start Time 13:06 Visit Stop Time 13:45 Total Visit Minutes 39 Visit Number 29 Number of TAX COMPLIANCE AGENT Visits 2 Evaluation Information Evaluation Date 05/17/22 PT-OP-B Current Condition Start: 05/16/22 19:55 Freq: Status: Active Protocol: Document 05/17/22 13:01 AMB (Rec: 05/17/22 13:20 AMB [id number]) Current Condition History of Current Condition Onset Date actue exacerbation of chronic pain Current Complaints back pain History of Current Condition Maggi attends for back pain, parkinsons. Standing increases the pain. Rolling over in bed is painful and wakes her up. Does do BIG exercises and overall feels better while moving, standing stationary is the most painful . She cooks a lot and this is painful for her. When waking up legs feel weak. Has had PD for years, does notice freezing vinny in doorways, difficulty walking backwards. Treatment Goals Patient/Caregiver Goals STand, roll over less back pain, walking less hip pain bilateral Personal Factors Other Personal Factors That May Effect Parkinsons Therapy/Recovery PT-OP-C Subjective Start: 05/16/22 19:55 Freq: Status: Active Protocol: Document 09/12/22 13:06 SP (Rec: 09/12/22 13:47 SP [id number]) OP-PT Subjective Patient Comments Patient Comments Pt reports doesn't walk as fast with effort in [employer] due to safety as in PT but tries. PT-OP-G Mobility & Gait Start: 05/16/22 19:55 Freq: Status: Active Protocol: Document 05/17/22 13:45 AMB (Rec: 05/21/22 21:33 AMB [id number]-) OP Mobility Evaluation Bed Mobility Rolling pain with rolling over in bed OP Gait Assessment Comments Gait Comments Freezing at doorway, difficulty with turns, reduced trunk rotation PT-OP-J Posture/Palpation/Skin Start: 05/16/22 19:55 Freq: Status: Active Protocol: Document 05/17/22 13:45 AMB (Rec: 05/21/22 21:33 AMB [id number]) Posture Evaluation Comments Posture Comments Flat lumbar spine Palpation Assessment Location One Palpation Findings Soft Tissue Tightness, Tenderness Palpation Details lumbar paraspinals hypertonic PT-OP-K Range of Motion Start: 05/16/22 19:55 Freq: Status: Active Protocol: Document 06/20/22 13:52 LRN (Rec: 06/20/22 17:09 LRN [id number]) Hip Goniometric Range of Motion Hip Right Passive Straight Leg Raise 70 Abduction 35 Internal Rotation 35 External Rotation 55 Left Passive Testing Position Supine Straight Leg Raise 70 Abduction 30 Internal Rotation 20 External Rotation 65 PT-OP-Q Treatments Start: 05/16/22 19:55 Freq: Status: Active Protocol: Document 09/12/22 13:06 SP (Rec: 09/12/22 13:47 SP [id number]) Gym Equipment Sport Cord red Exercise Details side R and L, step up/ bk down Cord/Resistance Red Comments 4 step + blue foam CGA-5%A, no LOB Therapeutic Exercises Supine Exercises Lateral Hip stretch Supine Exercise Name Pirif/Lateral Hip stretch, ITB Side left Resistance manual/ self Reps/Minutes 60 Comments good feedback stretch Sitting Exercises LAQ Side bilateral Resistance TB #1 loop ankles/heel Reps/Minutes 2SH x10 each LE Comments good quad fac work reported Standing Exercises band walks Standing Exercise Name lateral Side bilateral Resistance GTB (provided TB #3 for home) Reps/Minutes 20 ft x3 laps Comments good hip abd work, painfree Gait Training Gait Activity stairs Device Used 0 Level of Assistance S Distance/Duration 28 stairs MAP BLDG Treatment Focus foot clearance, receiprocal stepping Comments good form receiprocal stepping asc/descend, cued heel on step asc and foot clear descend nearl rail not used. no AD Description amplitude ER hallway fwd, slow increase step length bwd Level of Assistance SBA Distance/Duration 80 ft x3 laps, s Comments cued chest/head lift, increase stride/heel clearance, arm swing. Manual Therapy Treatment Soft Tissue Mobilization glut med, piriformis Body Location R hip Mobilization Type Cross-Friction,Rolling, Sustained Pressure Intensity/Depth Moderate Body Position Sidelying Comments manual, good feedback less tightness post. Discussion self use racquetball and roll on wall. PT-OP-R Modalities Start: 05/16/22 19:55 Freq: Status: Active Protocol: Document 08/31/22 13:00 AMB (Rec: 09/01/22 11:41 AMB [id number]) Electric Stimulation Electric Stimulation Interferential Current (IFC) Body Location B low back Duration (Minutes) 10 Intensity 14 Target/Sweep Sweep Patient Position Supine Combined With Heat/Cold Hot Pack PT-OP-T Assessment and Plan Start: 05/16/22 19:55 Freq: Status: Active Protocol: Document 09/12/22 13:06 SP (Rec: 09/12/22 13:47 SP [id number]) Physical Therapy Assessment Goals Two Impairment Transfers Short Term Goal (STG) Maggi will roll over in bed without an increase in back pain. 08/31: Pt reports needs to help her 1-2x/week with bed mobility STG Duration 4 weeks Sheeter Waxer Operator Goal (LTG) Maggi will move from supine to standing in the morning after doing her exercises without an increase in back pain. 06/20/22: Pain persists. LTG Duration MET One Impairment Back pain Short Term Goal (STG) Maggi will stand to pulp cooker for 30 minutes without an increase in her baseline back pain. 06/08/22 unsure if understands but states able to stand up to 3 hours before has to sit down due to LBP but at times if hurries causes increase pain, no time identified. 06/15/22: able to stand 30-60 min cooking in kitchen before LB starts to hurt and needs sit down or goes lay down and do stretches to make go away. 06/20/22: More pain with standing 1 hr to cook meal. STG Duration MET [facility] Goal (LTG) Maggi will walk for 30 minutes without an increase in bilateral hip pain. 06/08/22: GOAL MET: post injection hasn't had hip pain March or Apr. 06/15/22: able to stand 30-60 min cooking in kitchen before LB starts to hurt and needs sit down or goes lay down and do stretches to make go away. 06/20/22: Sometimes pain is worse with walking. LTG Duration MET Assessment Summary Assessment Pt improved amplitude forward ER hallway with arms swings and foot stride/clearance, cued little more chest lift posturing tires maintaining posture by end hallway 80 ft, Improved back stepping stride with cues for chest lift posture and steps pass each other. Pt SBA no UE support asc/descend 2 flights stairs. Pt reports R hip tired and sore post effort band walk, went away post manual. Physical Therapy Plan Frequency and Duration Frequency of Treatment 2x/Week Duration of treatment (weeks) 8 Plan of Care Start Date 08/05/22 Plan of Care End Date 09/30/22 Therapeutic Interventions Therapeutic Interventions Balance Training,Gait Training ,Home Exercise Program,Joint Mobilizations,Manual Therapy, Neuromuscular Re-education, Self-Care/Home Management, Therapeutic Activities, Therapeutic Exercises Modalities Cold Pack/Ice Massage,Electric Stimulation,Hot Packs, Traction- Mechanical Next Visit Focus/Plan Next Note Type Treatment Note Next Visit Plan Updated POC 09/21 PT appt ( expires 09/30 bwtn 2 TAX COMPLIANCE AGENT appts) . Possible decrease 1xwk. POC: Continue functional activities for balance and foot clearance. Continue to progress standing exercises, gait, continue with bed mobility training.
--- NOTE | 2022-09-14 13:15 | PT.OTN ---
Current Diagnoses Parkinson's disease (09/14/22) Spondylosis without myelopathy or radiculopathy, lumbar region (09/14/22) Spinal stenosis, lumbar region without neurogenic claudication (09/14/22) Trochanteric bursitis, right hip (09/14/22) Physical Therapy Treatment Note PT-OP-A Visit Information Start: 05/16/22 19:55 Freq: Status: Active Protocol: Document 09/14/22 12:18 SP (Rec: 09/14/22 13:07 SP [id number]) Out-Patient Physical Therapy Visit Information Visit Information Visit Type Treatment Note Visit Note 04/30 until next PN Visit Start Time 12:18 Visit Stop Time 13:15 Total Visit Minutes 57 Visit Number 30 Number of TABLE GAMES FLOOR SUPERVISOR Visits 3 Evaluation Information Evaluation Date 05/17/22 PT-OP-B Current Condition Start: 05/16/22 19:55 Freq: Status: Active Protocol: Document 05/17/22 13:01 AMB (Rec: 05/17/22 13:20 AMB [id number]) Current Condition History of Current Condition Onset Date actue exacerbation of chronic pain Current Complaints back pain History of Current Condition Maggi attends for back pain, parkinsons. Standing increases the pain. Rolling over in bed is painful and wakes her up. Does do BIG exercises and overall feels better while moving, standing stationary is the most painful . She cooks a lot and this is painful for her. When waking up legs feel weak. Has had PD for years, does notice freezing vinny in doorways, difficulty walking backwards. Treatment Goals Patient/Caregiver Goals STand, roll over less back pain, walking less hip pain bilateral Personal Factors Other Personal Factors That May Effect Parkinsons Therapy/Recovery PT-OP-C Subjective Start: 05/16/22 19:55 Freq: Status: Active Protocol: Document 09/14/22 12:18 SP (Rec: 09/14/22 13:07 SP [id number]) OP-PT Subjective Patient Comments Patient Comments Pt reports doing ok today, R hip little sore today. PT-OP-G Mobility & Gait Start: 05/16/22 19:55 Freq: Status: Active Protocol: Document 05/17/22 13:45 AMB (Rec: 05/21/22 21:33 AMB [id number]) OP Mobility Evaluation Bed Mobility Rolling pain with rolling over in bed OP Gait Assessment Comments Gait Comments Freezing at doorway, difficulty with turns, reduced trunk rotation PT-OP-J Posture/Palpation/Skin Start: 05/16/22 19:55 Freq: Status: Active Protocol: Document 05/17/22 13:45 AMB (Rec: 05/21/22 21:33 AMB [id number]) Posture Evaluation Comments Posture Comments Flat lumbar spine Palpation Assessment Location One Palpation Findings Soft Tissue Tightness, Tenderness Palpation Details lumbar paraspinals hypertonic PT-OP-K Range of Motion Start: 05/16/22 19:55 Freq: Status: Active Protocol: Document 06/20/22 13:52 LRN (Rec: 06/20/22 17:09 LRN [id number]) Hip Goniometric Range of Motion Hip Right Passive Straight Leg Raise 70 Abduction 35 Internal Rotation 35 External Rotation 55 Left Passive Testing Position Supine Straight Leg Raise 70 Abduction 30 Internal Rotation 20 External Rotation 65 PT-OP-Q Treatments Start: 05/16/22 19:55 Freq: Status: Active Protocol: Document 09/14/22 12:18 SP (Rec: 09/14/22 13:07 SP [id number]) Gym Equipment Sport Cord red Exercise Details side R and L, step up/ bk down , STS Cord/Resistance Red Comments 6 step + blue foam, STS 14 box w/ Blue foam under x8 reps , 12 box + foam- x2 reps to low stopped. CGA-5%A, no LOB Therapeutic Exercises Sidelying Exercises open book Side bilateral Reps/Minutes 1x10 Comments good slow pacing, 2 breath end range Sitting Exercises Piriformis stretch Sitting Exercise Name IR/ ER stretch pre ther ex Side bilateral Reps/Minutes 60 Comments reports painfree good stretch Other Exercises Cat/Cow Other Exercise Name ok on hands today 09/14/22 Equipment Used Mat table Reps/Minutes 1x30 Comments vc for form, mod cues for cat position - improves w/ repetition tactile cue pipo pose Equipment Used Mat table Reps/Minutes 30x2 Comments not fully sit back but good back stretch Gait Training Gait Activity no AD Description amplitude, head turns, quick starts/stops Level of Assistance SBA Distance/Duration 340 ft (clinic 2 laps total) Comments cued chest/head lift, increase stride/heel clearance, arm swing. Manual Therapy Treatment Soft Tissue Mobilization glut med, piriformis Body Location R>L hip Mobilization Type Cross-Friction,Rolling, Sustained Pressure Intensity/Depth Moderate Body Position Sidelying Comments manual, good feedback less tightness post. Discussion self use racquetball and roll on wall. LB Body Location B QL, ES Mobilization Type Cross-Friction,Strumming Intensity/Depth Moderate Body Position Sidelying Comments good feedback decrease R hip muscle tightness Manual Traction L hip long axis pull Comments added today, good response PT-OP-R Modalities Start: 05/16/22 19:55 Freq: Status: Active Protocol: Document 09/14/22 12:18 SP (Rec: 09/14/22 13:07 SP [id number]) Electric Stimulation Electric Stimulation Interferential Current (IFC) Body Location L hip, low back Duration (Minutes) 10 Intensity 18 Target/Sweep Sweep Patient Position Sidelying Combined With Heat/Cold Hot Pack PT-OP-T Assessment and Plan Start: 05/16/22 19:55 Freq: Status: Active Protocol: Document 09/14/22 12:18 SP (Rec: 09/14/22 13:07 SP [id number]) Physical Therapy Assessment Goals Two Impairment Transfers Short Term Goal (STG) Maggi will roll over in bed without an increase in back pain. 08/31: Pt reports needs to help her 1-2x/week with bed mobility STG Duration 4 weeks Jail Goal (LTG) Maggi will move from supine to standing in the morning after doing her exercises without an increase in back pain. 06/20/22: Pain persists. 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 06/08/22 unsure if understands but states able to stand up to 3 hours before has to sit down due to LBP but at times if hurries causes increase pain, no time identified. 06/15/22: able to stand 30-60 min cooking in kitchen before LB starts to hurt and needs sit down or goes lay down and do stretches to make go away. 06/20/22: More pain with standing 1 hr to cook meal. STG Duration MET Jail Goal (LTG) Maggi will walk for 30 minutes without an increase in bilateral hip pain. 06/08/22: GOAL MET: post injection hasn't had hip pain March or Apr. 10/26/22: able to stand 30-60 min cooking in kitchen before LB starts to hurt and needs sit down or goes lay down and do stretches to make go away. 06/20/22: Sometimes pain is worse with walking. LTG Duration MET Assessment Summary Assessment Pt improved stride, foot clearance and posturing bigger arms swings with dynamic gait post sport cord activity, stretching and manual. Pt requested R hip still discomfort requested use of stim and MHP, good feedback response. Improved more equal saurav stride and posture leaving. Physical Therapy Plan Frequency and Duration Frequency of Treatment 2x/Week Duration of treatment (weeks) 8 Plan of Care Start Date 08/05/22 Plan of Care End Date 09/30/22 Therapeutic Interventions Therapeutic Interventions Balance Training,Gait Training ,Home Exercise Program,Joint Mobilizations,Manual Therapy, Neuromuscular Re-education, Self-Care/Home Management, Therapeutic Activities, Therapeutic Exercises Modalities Cold Pack/Ice Massage,Electric Stimulation,Hot Packs, Traction- Mechanical Next Visit Focus/Plan Next Note Type Treatment Note Next Visit Plan Updated POC 09/21 PT appt ( expires 09/30 bwtn 2 TABLE GAMES FLOOR SUPERVISOR appts) . Possible decrease 1xwk. POC: Continue functional activities for balance and foot clearance. Continue to progress standing exercises, gait, continue with bed mobility training.
--- NOTE | 2022-09-21 11:57 | PT.OTN ---
Current Diagnoses Parkinson's disease (09/21/22) Spondylosis without myelopathy or radiculopathy, lumbar region (09/21/22) Spinal stenosis, lumbar region without neurogenic claudication (09/21/22) Trochanteric bursitis, right hip (09/21/22) Physical Therapy Treatment Note PT-OP-A Visit Information Start: 05/16/22 19:55 Freq: Status: Active Protocol: Document 09/21/22 10:19 AMB (Rec: 09/21/22 11:56 AMB [id number]) Out-Patient Physical Therapy Visit Information Visit Information Visit Type Progress Note Visit Start Time 10:15 Visit Stop Time 11:15 Total Visit Minutes 60 Visit Number 31 Number of DAIRY EQUIPMENT SPECIALIST Visits 0 PT-OP-B Current Condition Start: 05/16/22 19:55 Freq: Status: Active Protocol: Document 05/17/22 13:01 AMB (Rec: 05/17/22 13:20 AMB [id number]) Current Condition History of Current Condition Onset Date actue exacerbation of chronic pain Current Complaints back pain History of Current Condition Maggi attends for back pain, parkinsons. Standing increases the pain. Rolling over in bed is painful and wakes her up. Does do BIG exercises and overall feels better while moving, standing stationary is the most painful . She cooks a lot and this is painful for her. When waking up legs feel weak. Has had PD for years, does notice freezing vinny in doorways, difficulty walking backwards. Treatment Goals Patient/Caregiver Goals STand, roll over less back pain, walking less hip pain bilateral Personal Factors Other Personal Factors That May Effect Parkinsons Therapy/Recovery PT-OP-C Subjective Start: 05/16/22 19:55 Freq: Status: Active Protocol: Document 09/21/22 10:19 AMB (Rec: 09/21/22 11:56 AMB [id number]) OP-PT Subjective Patient Comments Patient Comments Pt reports back pain continues to be about 5/10. tingling is present at times in R foot. Working on walking, walking backwards continues to be challenging. PT-OP-G Mobility & Gait Start: 05/16/22 19:55 Freq: Status: Active Protocol: Document 05/17/22 13:45 AMB (Rec: 05/21/22 21:33 AMB [id number]) OP Mobility Evaluation Bed Mobility Rolling pain with rolling over in bed OP Gait Assessment Comments Gait Comments Freezing at doorway, difficulty with turns, reduced trunk rotation PT-OP-J Posture/Palpation/Skin Start: 05/16/22 19:55 Freq: Status: Active Protocol: Document 05/17/22 13:45 AMB (Rec: 05/21/22 21:33 AMB [id number]) Posture Evaluation Comments Posture Comments Flat lumbar spine Palpation Assessment Location One Palpation Findings Soft Tissue Tightness, Tenderness Palpation Details lumbar paraspinals hypertonic PT-OP-K Range of Motion Start: 05/16/22 19:55 Freq: Status: Active Protocol: Document 06/20/22 13:52 LRN (Rec: 06/20/22 17:09 LRN [id number]) Hip Goniometric Range of Motion Hip Right Passive Straight Leg Raise 70 Abduction 35 Internal Rotation 35 External Rotation 55 Left Passive Testing Position Supine Straight Leg Raise 70 Abduction 30 Internal Rotation 20 External Rotation 65 PT-OP-Q Treatments Start: 05/16/22 19:55 Freq: Status: Active Protocol: Document 09/21/22 10:19 AMB (Rec: 09/21/22 11:56 AMB [id number]) Therapeutic Exercises Supine Exercises sciatic n glide Reps/Minutes 10 Comments good stretch, cued keep amplitude up Sidelying Exercises open book Side bilateral Reps/Minutes 1x10 Comments good slow pacing, 2 breath end range Standing Exercises band walks Standing Exercise Name lateral Side bilateral Resistance GTB Reps/Minutes 20 ft x3 laps Comments good hip abd work, painfree forward/backward/sidestepping Standing Exercise Name focus on amplitude Reps/Minutes 20 ft x3 laps each Comments cued tall posturing, arm swing Gait Training Gait Activity no AD Description amplitude, head turns, quick starts/stops Level of Assistance SBA Distance/Duration 500 ft (clinic 2 laps total) Comments cued chest/head lift, increase stride/heel clearance, arm swing. Manual Therapy Treatment Soft Tissue Mobilization glut med, piriformis Body Location R>L hip Mobilization Type Cross-Friction,Rolling, Sustained Pressure Intensity/Depth Moderate Body Position Sidelying Comments manual, good feedback less tightness post. Discussion self use racquetball and roll on wall. PT-OP-R Modalities Start: 05/16/22 19:55 Freq: Status: Active Protocol: Document 09/21/22 10:30 AMB (Rec: 09/21/22 11:57 AMB [id number]) Electric Stimulation Electric Stimulation Interferential Current (IFC) Body Location L hip, low back Duration (Minutes) 10 Intensity 18 Target/Sweep Sweep Patient Position Sidelying Combined With Heat/Cold Hot Pack PT-OP-T Assessment and Plan Start: 05/16/22 19:55 Freq: Status: Active Protocol: Document 09/21/22 10:19 AMB (Rec: 09/21/22 11:56 AMB [id number]) Physical Therapy Assessment Goals Two Impairment Transfers Short Term Goal (STG) Maggi will roll over in bed without an increase in back pain. 08/31: Pt reports needs to help her 1-2x/week with bed mobility STG Duration 4 weeks Prison Goal (LTG) Maggi will move from supine to standing in the morning after doing her exercises without an increase in back pain. 06/20/22: Pain persists. LTG Duration MET One Impairment Back pain Short Term Goal (STG) Maggi will stand to cooker operator for 30 minutes without an increase in her baseline back pain. 06/08/22 unsure if understands but states able to stand up to 3 hours before has to sit down due to LBP but at times if hurries causes increase pain, no time identified. 06/15/22: able to stand 30-60 min cooking in kitchen before LB starts to hurt and needs sit down or goes lay down and do stretches to make go away. 06/20/22: More pain with standing 1 hr to cook meal. STG Duration MET Plastic Surgery Nurse Goal (LTG) Maggi will walk for 30 minutes without an increase in bilateral hip pain. 06/08/22: GOAL MET: post injection hasn't had hip pain March or Apr. 06/15/22: able to stand 30-60 min cooking in kitchen before LB starts to hurt and needs sit down or goes lay down and do stretches to make go away. 06/20/22: Sometimes pain is worse with walking. LTG Duration MET Assessment Summary Assessment Pt states low back is currently 5/10. States she wants to continue to work on her back and her walking. Encouraged pt to continue to work on mobility at home. Pt' s gait has improved from eval, pt does continue to have some tingling and hip pain. Pt could consider PT dedicated to her Parkinson's in the future , as her stiffness from that is impacting her back pain as well. Is having improved bed mobility. Physical Therapy Plan Frequency and Duration Frequency of Treatment 2x/Week Duration of treatment (weeks) 8 Plan of Care Start Date 09/21/22 Plan of Care End Date 11/16/22 Therapeutic Interventions Therapeutic Interventions Balance Training,Gait Training ,Home Exercise Program,Joint Mobilizations,Manual Therapy, Neuromuscular Re-education, Self-Care/Home Management, Therapeutic Activities, Therapeutic Exercises Modalities Cold Pack/Ice Massage,Electric Stimulation,Hot Packs, Traction- Mechanical Next Visit Focus/Plan Next Note Type Treatment Note Next Visit Plan POC: Continue functional activities for balance and foot clearance. Continue to progress standing exercises, gait, continue with bed mobility training.
--- NOTE | 2022-09-21 12:03 | PT.OPPOC ---
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/22) Spinal stenosis, lumbar region without neurogenic claudication (09/21/22) Trochanteric bursitis, right hip (09/21/22) Visit Care Team Role Provider Type Rocio Camarillo PA-C Primary Care Provider Non-Staff Specialty: [facility] Address: [address] [place] [address], [id number] Email: [email or web address] MD Attending Provider Physician Referring Provider Specialty: Orthopedics Orthopedic Surgery Physical Medicine and Rehab Address: [address] [place] [address], [id number] Email: [email or web address] Plan Of Care PT-OP-T Assessment and Plan Start: 05/16/22 19:55 Freq: Status: Active Protocol: Document 09/21/22 10:19 AMB (Rec: 09/21/22 11:56 AMB [id number]) Physical Therapy Assessment Goals Two Impairment Transfers Short Term Goal (STG) Maggi will roll over in bed without an increase in back pain. 08/31: Pt reports needs to help her 1-2x/week with bed mobility STG Duration 4 weeks Care Home Goal (LTG) Maggi will move from supine to standing in the morning after doing her exercises without an increase in back pain. 06/20/22: Pain persists. 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 06/08/22 unsure if understands but states able to stand up to 3 hours before has to sit down due to LBP but at times if hurries causes increase pain, no time identified. 06/15/22: able to stand 30-60 min cooking in kitchen before LB starts to hurt and needs sit down or goes lay down and do stretches to make go away. 06/20/22: More pain with standing 1 hr to cook meal. STG Duration MET Care Home Goal (LTG) Maggi will walk for 30 minutes without an increase in bilateral hip pain. 06/08/22: GOAL MET: post injection hasn't had hip pain March or Apr. 06/15/22: able to stand 30-60 min cooking in kitchen before LB starts to hurt and needs sit down or goes lay down and do stretches to make go away. 06/20/22: Sometimes pain is worse with walking. LTG Duration MET Assessment Summary Assessment Pt states low back is currently 5/10. States she wants to continue to work on her back and her walking. Encouraged pt to continue to work on mobility at home. Pt' s gait has improved from eval, pt does continue to have some tingling and hip pain. Pt could consider PT dedicated to her Parkinson's in the future , as her stiffness from that is impacting her back pain as well. Is having improved bed mobility. Physical Therapy Plan Frequency and Duration Frequency of Treatment 2x/Week Duration of treatment (weeks) 8 Plan of Care Start Date 09/21/22 Plan of Care End Date 11/16/22 Therapeutic Interventions Therapeutic Interventions Balance Training,Gait Training ,Home Exercise Program,Joint Mobilizations,Manual Therapy, Neuromuscular Re-education, Self-Care/Home Management, Therapeutic Activities, Therapeutic Exercises Modalities Cold Pack/Ice Massage,Electric Stimulation,Hot Packs, Traction- Mechanical Next Visit Focus/Plan Next Note Type Treatment Note Next Visit Plan POC: Continue functional activities for balance and foot clearance. Continue to progress standing exercises, gait, continue with bed mobility training. Plan of Care Dates Plan of Care Start Date 09/21/22 Plan of Care End Date 11/16/22 Electronically Signed by: Diana Cruz, PT 09/21/22 [id number] If you are in agreement with this Plan of Care, please return a signed and dated copy. I have reviewed this Plan of Care and certify that the skilled therapy services above are required to meet the patient?s needs. Physician Signature Date Printed Name and Credentials Clinical Instructor Signature Printed Name and Credentials
--- NOTE | 2022-09-23 13:15 | PT.OTN ---
Current Diagnoses Parkinson's disease (09/23/22) Spondylosis without myelopathy or radiculopathy, lumbar region (09/23/22) Spinal stenosis, lumbar region without neurogenic claudication (09/23/22) Trochanteric bursitis, right hip (09/23/22) Physical Therapy Treatment Note PT-OP-A Visit Information Start: 05/16/22 19:55 Freq: Status: Active Protocol: Document 09/23/22 12:26 SP (Rec: 09/23/22 13:07 SP [id number]) Out-Patient Physical Therapy Visit Information Visit Information Visit Type Treatment Note Visit Start Time 12:24 Visit Stop Time 13:15 Total Visit Minutes 51 Visit Number 32 Number of DEWATERER OPERATOR Visits 1 Evaluation Information Evaluation Date 05/17/22 PT-OP-B Current Condition Start: 05/16/22 19:55 Freq: Status: Active Protocol: Document 05/17/22 13:01 AMB (Rec: 05/17/22 13:20 AMB [id number]) Current Condition History of Current Condition Onset Date actue exacerbation of chronic pain Current Complaints back pain History of Current Condition Maggi attends for back pain, parkinsons. Standing increases the pain. Rolling over in bed is painful and wakes her up. Does do BIG exercises and overall feels better while moving, standing stationary is the most painful . She cooks a lot and this is painful for her. When waking up legs feel weak. Has had PD for years, does notice freezing vinny in doorways, difficulty walking backwards. Treatment Goals Patient/Caregiver Goals STand, roll over less back pain, walking less hip pain bilateral Personal Factors Other Personal Factors That May Effect Parkinsons Therapy/Recovery PT-OP-C Subjective Start: 05/16/22 19:55 Freq: Status: Active Protocol: Document 09/23/22 12:26 SP (Rec: 09/23/22 13:07 SP [id number]) OP-PT Subjective Patient Comments Patient Comments Pt states across LB hurting. note walk as good/far. see neurologist. PT-OP-G Mobility & Gait Start: 05/16/22 19:55 Freq: Status: Active Protocol: Document 05/17/22 13:45 AMB (Rec: 05/21/22 21:33 AMB [id number]) OP Mobility Evaluation Bed Mobility Rolling pain with rolling over in bed OP Gait Assessment Comments Gait Comments Freezing at doorway, difficulty with turns, reduced trunk rotation PT-OP-J Posture/Palpation/Skin Start: 05/16/22 19:55 Freq: Status: Active Protocol: Document 05/17/22 13:45 AMB (Rec: 05/21/22 21:33 AMB [id number]) Posture Evaluation Comments Posture Comments Flat lumbar spine Palpation Assessment Location One Palpation Findings Soft Tissue Tightness, Tenderness Palpation Details lumbar paraspinals hypertonic PT-OP-K Range of Motion Start: 05/16/22 19:55 Freq: Status: Active Protocol: Document 06/20/22 13:52 LRN (Rec: 06/20/22 17:09 LRN [id number]) Hip Goniometric Range of Motion Hip Right Passive Straight Leg Raise 70 Abduction 35 Internal Rotation 35 External Rotation 55 Left Passive Testing Position Supine Straight Leg Raise 70 Abduction 30 Internal Rotation 20 External Rotation 65 PT-OP-Q Treatments Start: 05/16/22 19:55 Freq: Status: Active Protocol: Document 09/23/22 12:26 SP (Rec: 09/23/22 13:07 SP [id number]) Therapeutic Exercises Sitting Exercises TS/ LS rotation Sitting Exercise Name arm contact table vs across chest TS rotation Side bilateral Reps/Minutes 3 SH x10 Comments good feedback stretch STS Sitting Exercise Name eccentric squat 18 table Equipment Used arms across chest Reps/Minutes x10 reps Comments cued shlds down/back, eccentric sit w/ knees apart- no UT assist Gait Training Gait Activity stairs Device Used 0 Level of Assistance S Distance/Duration 4x4 Treatment Focus foot clearance, receiprocal stepping Comments good form receiprocal stepping asc/descend, cued heel on step asc and foot clear descend nearl rail not used. no AD Description amplitude, head turns, quick starts/stops Level of Assistance SBA Distance/Duration (clinic 3 laps total) Comments cued chest/head lift, increase stride/heel clearance, arm swing, TS rotation. Manual Therapy Treatment Soft Tissue Mobilization glut med, piriformis Body Location R>L hip Mobilization Type Cross-Friction,Rolling, Sustained Pressure Intensity/Depth Moderate Body Position Sidelying Comments manual, good feedback less tightness post. Discussion self use racquetball and roll on wall. LB Body Location B QL, ES Mobilization Type Cross-Friction,Strumming Intensity/Depth Moderate Body Position Sidelying Comments good feedback decrease R hip muscle tightness Neuro Re-Education Treatment Balance Activities obstacle course Details 8 step, 4 step, 3 hurdles Comments cued hip /knee flexion foot clearance jose angel. PT-OP-R Modalities Start: 05/16/22 19:55 Freq: Status: Active Protocol: Document 09/23/22 12:26 SP (Rec: 09/23/22 13:07 SP [id number]) Electric Stimulation Electric Stimulation Interferential Current (IFC) Body Location low back Duration (Minutes) 10 Intensity 26 Target/Sweep Sweep Patient Position Hooklying Combined With Heat/Cold Hot Pack Comments good feedback response PT-OP-T Assessment and Plan Start: 05/16/22 19:55 Freq: Status: Active Protocol: Document 09/23/22 12:26 SP (Rec: 09/23/22 13:07 SP [id number]) Physical Therapy Assessment Goals Two Impairment Transfers Short Term Goal (STG) Maggi will roll over in bed without an increase in back pain. 08/31: Pt reports needs to help her 1-2x/week with bed mobility STG Duration 4 weeks Professional Nursing Assistant Goal (LTG) Maggi will move from supine to standing in the morning after doing her exercises without an increase in back pain. 06/20/22: Pain persists. 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 06/08/22 unsure if understands but states able to stand up to 3 hours before has to sit down due to LBP but at times if hurries causes increase pain, no time identified. 06/15/22: able to stand 30-60 min cooking in kitchen before LB starts to hurt and needs sit down or goes lay down and do stretches to make go away. 06/20/22: More pain with standing 1 hr to cook meal. STG Duration MET Detention Goal (LTG) Maggi will walk for 30 minutes without an increase in bilateral hip pain. 06/08/22: GOAL MET: post injection hasn't had hip pain March or Apr. 06/15/22: able to stand 30-60 min cooking in kitchen before LB starts to hurt and needs sit down or goes lay down and do stretches to make go away. 06/20/22: Sometimes pain is worse with walking. LTG Duration MET Assessment Summary Assessment Pt improved upright thoracic lift posturing, arms swings, longer stride forward with amplitude and backstepping larger steps 50% of hallways distance with stability by end of tx post manual and stating feels better. DEWATERER OPERATOR discussed 1x;wk and consider BIG program for increase big movements for endurance gait with but suggested not holding his hand to allow arms swings and TS rotation felt better in PT tx. DEWATERER OPERATOR re-ed stretching, core ex given and estim home unit when feeling pain, can bring back in if need review use. Physical Therapy Plan Frequency and Duration Frequency of Treatment 2x/Week Duration of treatment (weeks) 8 Plan of Care Start Date 09/21/22 Plan of Care End Date 11/16/22 Therapeutic Interventions Therapeutic Interventions Balance Training,Gait Training ,Home Exercise Program,Joint Mobilizations,Manual Therapy, Neuromuscular Re-education, Self-Care/Home Management, Therapeutic Activities, Therapeutic Exercises Modalities Cold Pack/Ice Massage,Electric Stimulation,Hot Packs, Traction- Mechanical Next Visit Focus/Plan Next Note Type Treatment Note Next Visit Plan Recheck neuro appt if discussed med, LBP/ankle IV, shld shrugs and wrist extension movements then find posturing rounded stiff trunk gait and small steps. POC: Continue functional activities for balance and foot clearance. Continue to progress standing exercises, gait, continue with bed mobility training.
--- NOTE | 2022-09-26 17:41 | PT.OTN ---
Current Diagnoses Parkinson's disease (09/26/22) Spondylosis without myelopathy or radiculopathy, lumbar region (09/26/22) Spinal stenosis, lumbar region without neurogenic claudication (09/26/22) Trochanteric bursitis, right hip (09/26/22) Physical Therapy Treatment Note PT-OP-A Visit Information Start: 05/16/22 19:55 Freq: Status: Active Protocol: Document 09/26/22 13:54 NBM (Rec: 09/26/22 14:39 NB [id number]) Out-Patient Physical Therapy Visit Information Visit Information Visit Type Treatment Note Visit Start Time 13:52 Visit Stop Time 14:45 Total Visit Minutes 53 Visit Number 33 Number of CITRUS FRUIT COLORER Visits 2 PT-OP-B Current Condition Start: 05/16/22 19:55 Freq: Status: Active Protocol: Document 05/17/22 13:01 AMB (Rec: 05/17/22 13:20 AMB [id number]) Current Condition History of Current Condition Onset Date actue exacerbation of chronic pain Current Complaints back pain History of Current Condition Maggi attends for back pain, parkinsons. Standing increases the pain. Rolling over in bed is painful and wakes her up. Does do BIG exercises and overall feels better while moving, standing stationary is the most painful . She cooks a lot and this is painful for her. When waking up legs feel weak. Has had PD for years, does notice freezing vinny in doorways, difficulty walking backwards. Treatment Goals Patient/Caregiver Goals STand, roll over less back pain, walking less hip pain bilateral Personal Factors Other Personal Factors That May Effect Parkinsons Therapy/Recovery PT-OP-C Subjective Start: 05/16/22 19:55 Freq: Status: Active Protocol: Document 09/26/22 13:54 NBM (Rec: 09/26/22 14:39 NB [id number]) OP-PT Subjective Patient Comments Patient Comments Pt reports 5/10 low back pain today. Spouse reports saw neurologist who advised pt has Parkinsons and discussed Parkinsons physical therapy. Spouse states they also think he has Parkinson's. Levodopa was increased and pt is to follow up with neuro next week . PT-OP-G Mobility & Gait Start: 05/16/22 19:55 Freq: Status: Active Protocol: Document 05/17/22 13:45 AMB (Rec: 05/21/22 21:33 AMB [id number]) OP Mobility Evaluation Bed Mobility Rolling pain with rolling over in bed OP Gait Assessment Comments Gait Comments Freezing at doorway, difficulty with turns, reduced trunk rotation PT-OP-J Posture/Palpation/Skin Start: 05/16/22 19:55 Freq: Status: Active Protocol: Document 05/17/22 13:45 AMB (Rec: 05/21/22 21:33 AMB [id number]) Posture Evaluation Comments Posture Comments Flat lumbar spine Palpation Assessment Location One Palpation Findings Soft Tissue Tightness, Tenderness Palpation Details lumbar paraspinals hypertonic PT-OP-K Range of Motion Start: 05/16/22 19:55 Freq: Status: Active Protocol: Document 06/20/22 13:52 LRN (Rec: 06/20/22 17:09 LRN [id number]) Hip Goniometric Range of Motion Hip Right Passive Straight Leg Raise 70 Abduction 35 Internal Rotation 35 External Rotation 55 Left Passive Testing Position Supine Straight Leg Raise 70 Abduction 30 Internal Rotation 20 External Rotation 65 PT-OP-Q Treatments Start: 05/16/22 19:55 Freq: Status: Active Protocol: Document 09/26/22 13:54 NBM (Rec: 09/26/22 14:39 NBM [id number]) Therapeutic Exercises Supine Exercises Happy baby stretch Reps/Minutes 60 sec Comments cues for form TA Comments cued w/ ex's LTR Side bilateral Equipment Used 55 cm physioball Reps/Minutes x10 ea single knee to chest Supine Exercise Name manual assist initially then able self Side bilateral Equipment Used grasp behind thigh Reps/Minutes 30x2 Comments cued head/ shld relax back table, gentle hug knee toward chest piriformis stretch Supine Exercise Name Piriformis stretch: manual assist for controlled movement /relax, benefit Side bilateral Resistance L?R Reps/Minutes 60 x 1 Comments cued head/ shld relax back table, gentle hug knee toward chest Sidelying Exercises open book Side bilateral Reps/Minutes 1x10 Comments good slow pacing, 2 breath end range Manual Therapy Treatment Soft Tissue Mobilization Shoulder Body Location B UT, LS Mobilization Type Rolling,Strumming,Sustained Pressure,Trigger Point Release Intensity/Depth Moderate Body Position Hooklying Comments R>L Cervical Body Location paraspinals, SO, scalenes Mobilization Type Rolling,Sustained Pressure Intensity/Depth Moderate Body Position Hooklying Comments manual trx x2 Good feedback response: I could fall asleep. Self-Care/Home Management Treatment Education Patient Education Safety Other Education Discussed with pt and spouse both possibly having Parkinson 's Disease and encouraged to make a plan for caregiving and support should this be the case - both express they will do this. PT-OP-R Modalities Start: 05/16/22 19:55 Freq: Status: Active Protocol: Document 09/26/22 13:54 NBM (Rec: 09/26/22 14:39 NBM [id number]) Electric Stimulation Electric Stimulation Interferential Current (IFC) Body Location low back Duration (Minutes) 10 Intensity 20 Target/Sweep Sweep Patient Position Hooklying Combined With Heat/Cold Hot Pack Comments good feedback response PT-OP-T Assessment and Plan Start: 05/16/22 19:55 Freq: Status: Active Protocol: Document 09/26/22 13:54 NBM (Rec: 09/26/22 14:39 NBM [id number]) Physical Therapy Assessment Impairments Impairments Activity Tolerance,Balance, Functional Activities, Functional Mobility,Gait,Pain, Posture,ROM,Strength Goals Two Impairment Transfers Short Term Goal (STG) Maggi will roll over in bed without an increase in back pain. 08/31: Pt reports needs to help her 1-2x/week with bed mobility STG Duration 4 weeks Mine Exploration Engineer Goal (LTG) Maggi will move from supine to standing in the morning after doing her exercises without an increase in back pain. 06/20/22: Pain persists. 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 06/08/22 unsure if understands but states able to stand up to 3 hours before has to sit down due to LBP but at times if hurries causes increase pain, no time identified. 06/15/22: able to stand 30-60 min cooking in kitchen before LB starts to hurt and needs sit down or goes lay down and do stretches to make go away. 06/20/22: More pain with standing 1 hr to cook meal. STG Duration MET Halfway Goal (LTG) Maggi will walk for 30 minutes without an increase in bilateral hip pain. 06/08/22: GOAL MET: post injection hasn't had hip pain March or Apr. 06/15/22: able to stand 30-60 min cooking in kitchen before LB starts to hurt and needs sit down or goes lay down and do stretches to make go away. 06/20/22: Sometimes pain is worse with walking. LTG Duration MET Assessment Summary Assessment Low back pain improves by end of session and palpable tightness to cervical mm decreases with manual R>L. Discussed with pt and spouse both possibly having Parkinson 's Disease and encouraged to make a plan for caregiving and support should this be the case - both express they will do this. Physical Therapy Plan Frequency and Duration Frequency of Treatment 2x/Week Duration of treatment (weeks) 8 Plan of Care Start Date 09/21/22 Plan of Care End Date 11/16/22 Therapeutic Interventions Therapeutic Interventions Balance Training,Gait Training ,Home Exercise Program,Joint Mobilizations,Manual Therapy, Neuromuscular Re-education, Self-Care/Home Management, Therapeutic Activities, Therapeutic Exercises Modalities Cold Pack/Ice Massage,Electric Stimulation,Hot Packs, Traction- Mechanical Next Visit Focus/Plan Next Note Type Treatment Note Next Visit Plan LBP/ankle IV, shld shrugs and wrist extension movements then find posturing rounded stiff trunk gait and small steps. POC: Continue functional activities for balance and foot clearance. Continue to progress standing exercises, gait, continue with bed mobility training.
--- NOTE | 2022-10-04 15:15 | PT.OTN ---
Current Diagnoses Parkinson's disease (10/04/22) Spondylosis without myelopathy or radiculopathy, lumbar region (10/04/22) Spinal stenosis, lumbar region without neurogenic claudication (10/04/22) Trochanteric bursitis, right hip (10/04/22) Physical Therapy Treatment Note PT-OP-A Visit Information Start: 05/16/22 19:55 Freq: Status: Active Protocol: Document 10/04/22 14:33 SP (Rec: 10/04/22 15:41 SP [id number]) Out-Patient Physical Therapy Visit Information Visit Information Visit Type Treatment Note Visit Start Time 14:33 Visit Stop Time 15:15 Total Visit Minutes 42 Visit Number 34 Number of WELDING EQUIPMENT SALES REPRESENTATIVE Visits 3 Evaluation Information Evaluation Date 05/17/22 PT-OP-B Current Condition Start: 05/16/22 19:55 Freq: Status: Active Protocol: Document 05/17/22 13:01 AMB (Rec: 05/17/22 13:20 AMB [id number]) Current Condition History of Current Condition Onset Date actue exacerbation of chronic pain Current Complaints back pain History of Current Condition Maggi attends for back pain, parkinsons. Standing increases the pain. Rolling over in bed is painful and wakes her up. Does do BIG exercises and overall feels better while moving, standing stationary is the most painful . She cooks a lot and this is painful for her. When waking up legs feel weak. Has had PD for years, does notice freezing vinny in doorways, difficulty walking backwards. Treatment Goals Patient/Caregiver Goals STand, roll over less back pain, walking less hip pain bilateral Personal Factors Other Personal Factors That May Effect Parkinsons Therapy/Recovery PT-OP-C Subjective Start: 05/16/22 19:55 Freq: Status: Active Protocol: Document 10/04/22 14:33 SP (Rec: 10/04/22 15:41 SP [id number]) OP-PT Subjective Patient Comments Patient Comments Pt reported woke up nausea and little dizzy during the night but better now. She reports PT-OP-G Mobility & Gait Start: 05/16/22 19:55 Freq: Status: Active Protocol: Document 05/17/22 13:45 AMB (Rec: 05/21/22 21:33 AMB [id number]) OP Mobility Evaluation Bed Mobility Rolling pain with rolling over in bed OP Gait Assessment Comments Gait Comments Freezing at doorway, difficulty with turns, reduced trunk rotation PT-OP-J Posture/Palpation/Skin Start: 05/16/22 19:55 Freq: Status: Active Protocol: Document 05/17/22 13:45 AMB (Rec: 05/21/22 21:33 AMB [id number]) Posture Evaluation Comments Posture Comments Flat lumbar spine Palpation Assessment Location One Palpation Findings Soft Tissue Tightness, Tenderness Palpation Details lumbar paraspinals hypertonic PT-OP-K Range of Motion Start: 05/16/22 19:55 Freq: Status: Active Protocol: Document 06/20/22 13:52 LRN (Rec: 06/20/22 17:09 LRN [id number]) Hip Goniometric Range of Motion Hip Right Passive Straight Leg Raise 70 Abduction 35 Internal Rotation 35 External Rotation 55 Left Passive Testing Position Supine Straight Leg Raise 70 Abduction 30 Internal Rotation 20 External Rotation 65 PT-OP-Q Treatments Start: 05/16/22 19:55 Freq: Status: Active Protocol: Document 10/04/22 14:33 SP (Rec: 10/04/22 15:41 SP [id number]) Gym Equipment Sport Cord red Exercise Details side F/B/Lateral Cord/Resistance Red Comments 6 step then + blue foam CGA-5%A, no LOB Therapeutic Exercises Supine Exercises Happy baby stretch Reps/Minutes 60 sec Comments Therapist assist maintain position sciatic n glide Reps/Minutes 10 Comments good stretch ER stretch Supine Exercise Name Figure 4 stretch supine w/10x active stretch Side bilateral Reps/Minutes 2x30 Comments More comfortable in supine piriformis stretch Supine Exercise Name Piriformis stretch: manual assist for controlled movement /relax, benefit Side bilateral Resistance L>R Reps/Minutes 60 x 1 Comments cued head/ shld relax back table, gentle hug knee toward chest Gait Training Gait Activity stairs Device Used 0 Level of Assistance S Distance/Duration 4x4 Treatment Focus foot clearance, receiprocal stepping Comments good form receiprocal stepping asc/descend, cued heel on step asc and foot clear descend nearl rail not used. no AD Description amplitude, head turns, quick starts/stops Level of Assistance SBA Distance/Duration MAP bldg, ER hallway, around outside MAP Bldg and uneven terrain landscapng Treatment Focus increase step length, longer strides, arms swing, upright psosturuing Comments cued chest/head lift, increase stride/heel clearance, arm swing, TS rotation. PT-OP-R Modalities Start: 05/16/22 19:55 Freq: Status: Active Protocol: Document 09/26/22 13:54 NBM (Rec: 09/26/22 14:39 NBM [id number]) Electric Stimulation Electric Stimulation Interferential Current (IFC) Body Location low back Duration (Minutes) 10 Intensity 20 Target/Sweep Sweep Patient Position Hooklying Combined With Heat/Cold Hot Pack Comments good feedback response PT-OP-T Assessment and Plan Start: 05/16/22 19:55 Freq: Status: Active Protocol: Document 10/04/22 14:33 SP (Rec: 10/04/22 15:41 SP [id number]) Physical Therapy Assessment Goals Two Impairment Transfers Short Term Goal (STG) Maggi will roll over in bed without an increase in back pain. 08/31: Pt reports needs to help her 1-2x/week with bed mobility STG Duration 4 weeks Support Associate Goal (LTG) Maggi will move from supine to standing in the morning after doing her exercises without an increase in back pain. 06/20/22: Pain persists. LTG Duration MET One Impairment Back pain Short Term Goal (STG) Maggi will stand to griddle cook for 30 minutes without an increase in her baseline back pain. 06/08/22 unsure if understands but states able to stand up to 3 hours before has to sit down due to LBP but at times if hurries causes increase pain, no time identified. 06/15/22: able to stand 30-60 min cooking in kitchen before LB starts to hurt and needs sit down or goes lay down and do stretches to make go away. 06/20/22: More pain with standing 1 hr to cook meal. STG Duration MET [facility] Living Goal (LTG) Maggi will walk for 30 minutes without an increase in bilateral hip pain. 06/08/22: GOAL MET: post injection hasn't had hip pain March or Apr. 06/15/22: able to stand 30-60 min cooking in kitchen before LB starts to hurt and needs sit down or goes lay down and do stretches to make go away. 06/20/22: Sometimes pain is worse with walking. LTG Duration MET Assessment Summary Assessment Pt responded well to dynamic gait, stair mgt, continued cues for posturing arm swings, foot clearance and increase stride especially back stepping. close SBA over uneven terrain good stability. Pt reports no pain end tx. Physical Therapy Plan Frequency and Duration Frequency of Treatment 2x/Week Duration of treatment (weeks) 8 Plan of Care Start Date 09/21/22 Plan of Care End Date 11/16/22 Therapeutic Interventions Therapeutic Interventions Balance Training,Gait Training ,Home Exercise Program,Joint Mobilizations,Manual Therapy, Neuromuscular Re-education, Self-Care/Home Management, Therapeutic Activities, Therapeutic Exercises Modalities Cold Pack/Ice Massage,Electric Stimulation,Hot Packs, Traction- Mechanical Next Visit Focus/Plan Next Note Type Treatment Note Next Visit Plan Encourage large movements. POC: Continue functional activities for balance and foot clearance. Continue to progress standing exercises, gait, continue with bed mobility training.
--- NOTE | 2022-10-11 13:45 | PT.OTN ---
Current Diagnoses Parkinson's disease (10/11/22) Spondylosis without myelopathy or radiculopathy, lumbar region (10/11/22) Spinal stenosis, lumbar region without neurogenic claudication (10/11/22) Trochanteric bursitis, right hip (10/11/22) Physical Therapy Treatment Note PT-OP-A Visit Information Start: 05/16/22 19:55 Freq: Status: Active Protocol: Document 10/11/22 13:05 SP (Rec: 10/11/22 13:46 SP [id number]) Out-Patient Physical Therapy Visit Information Visit Information Visit Type Treatment Note Visit Start Time 13:05 Visit Stop Time 13:45 Total Visit Minutes 40 Visit Number 35 Number of DETECTIVE NARCOTICS AND VICE Visits 4 Evaluation Information Evaluation Date 05/17/22 PT-OP-B Current Condition Start: 05/16/22 19:55 Freq: Status: Active Protocol: Document 05/17/22 13:01 AMB (Rec: 05/17/22 13:20 AMB [id number]) Current Condition History of Current Condition Onset Date actue exacerbation of chronic pain Current Complaints back pain History of Current Condition Maggi attends for back pain, parkinsons. Standing increases the pain. Rolling over in bed is painful and wakes her up. Does do BIG exercises and overall feels better while moving, standing stationary is the most painful . She cooks a lot and this is painful for her. When waking up legs feel weak. Has had PD for years, does notice freezing vinny in doorways, difficulty walking backwards. Treatment Goals Patient/Caregiver Goals STand, roll over less back pain, walking less hip pain bilateral Personal Factors Other Personal Factors That May Effect Parkinsons Therapy/Recovery PT-OP-C Subjective Start: 05/16/22 19:55 Freq: Status: Active Protocol: Document 10/11/22 13:05 SP (Rec: 10/11/22 13:46 SP [id number]) OP-PT Subjective Patient Comments Patient Comments Pt reported nausea and dizziness not much now, still getting R hip pain and shuffle stepping especially backwards . PT-OP-G Mobility & Gait Start: 05/16/22 19:55 Freq: Status: Active Protocol: Document 05/17/22 13:45 AMB (Rec: 05/21/22 21:33 AMB [id number]) OP Mobility Evaluation Bed Mobility Rolling pain with rolling over in bed OP Gait Assessment Comments Gait Comments Freezing at doorway, difficulty with turns, reduced trunk rotation PT-OP-J Posture/Palpation/Skin Start: 05/16/22 19:55 Freq: Status: Active Protocol: Document 05/17/22 13:45 AMB (Rec: 05/21/22 21:33 AMB [id number]) Posture Evaluation Comments Posture Comments Flat lumbar spine Palpation Assessment Location One Palpation Findings Soft Tissue Tightness, Tenderness Palpation Details lumbar paraspinals hypertonic PT-OP-K Range of Motion Start: 05/16/22 19:55 Freq: Status: Active Protocol: Document 06/20/22 13:52 LRN (Rec: 06/20/22 17:09 LRN [id number]) Hip Goniometric Range of Motion Hip Right Passive Straight Leg Raise 70 Abduction 35 Internal Rotation 35 External Rotation 55 Left Passive Testing Position Supine Straight Leg Raise 70 Abduction 30 Internal Rotation 20 External Rotation 65 PT-OP-Q Treatments Start: 05/16/22 19:55 Freq: Status: Active Protocol: Document 10/11/22 13:05 SP (Rec: 10/11/22 13:46 SP [id number]) Therapeutic Exercises Sitting Exercises LAQ Side bilateral Resistance 4# leg wt Reps/Minutes 2SH x10 each LE Comments good quad fac work reported Piriformis stretch Sitting Exercise Name IR/ ER stretch post ther ex Side bilateral Reps/Minutes 60 Comments reports painfree good stretch STS Sitting Exercise Name HABD coming to standing, across chest sitting Equipment Used floor, blue foam, rockerboard Reps/Minutes 5 reps each Comments cued shlds down/back, eccentric sit w/ knees apart- no UT assist Standing Exercises BIG stepping Standing Exercise Name back stepping w/arms out side (HABD) then on lap together Side bilateral Reps/Minutes x10 Comments in between sets back stepping ER hallway- improved stride Step Ups Standing Exercise Name F/B/Lateral Resistance CGA/ SBA Equipment Used //bar PRN contact (x2) Reps/Minutes x10 reps each direction Comments cued awareness LE clearance step up Gait Training Gait Activity stairs Device Used 0 Level of Assistance S Distance/Duration 28 MAP stairs Treatment Focus foot clearance, receiprocal stepping Comments good form receiprocal stepping asc/descend no UE, stable no AD Description amplitude, head turns, quick starts/stops, bwd stepping Level of Assistance SBA Distance/Duration MAP bldg, ER hallway Treatment Focus increase step length, longer strides, arms swing, upright psosturuing Comments cued chest/head lift, increase stride/heel clearance, arm swing, TS rotation. Manual Therapy Treatment Soft Tissue Mobilization glut med, piriformis Body Location R>L hip Mobilization Type Cross-Friction,Rolling, Sustained Pressure Intensity/Depth Moderate Body Position Sidelying Comments manual, good feedback less tightness post. Discussion self use racquetball and roll on wall. LB Body Location R QL, ES Mobilization Type Cross-Friction,Strumming Intensity/Depth Moderate Body Position Sidelying Comments good feedback decrease R hip muscle tightness Manual Traction L hip long axis pull Comments added today, good response PT-OP-R Modalities Start: 05/16/22 19:55 Freq: Status: Active Protocol: Document 09/26/22 13:54 NBM (Rec: 09/26/22 14:39 NBM [id number]) Electric Stimulation Electric Stimulation Interferential Current (IFC) Body Location low back Duration (Minutes) 10 Intensity 20 Target/Sweep Sweep Patient Position Hooklying Combined With Heat/Cold Hot Pack Comments good feedback response PT-OP-T Assessment and Plan Start: 05/16/22 19:55 Freq: Status: Active Protocol: Document 10/11/22 13:05 SP (Rec: 10/11/22 13:46 SP [id number]) Physical Therapy Assessment Goals Two Impairment Transfers Short Term Goal (STG) Maggi will roll over in bed without an increase in back pain. 08/31: Pt reports needs to help her 1-2x/week with bed mobility 10/11/22: Progressing: little bit Rolling R and L at night in R LB/ R L hip. STG Duration 4 weeks progressing 10/11/22 Prison Goal (LTG) Maggi will move from supine to standing in the morning after doing her exercises without an increase in back pain. 06/20/22: Pain persists. LTG Duration MET One Impairment Back pain Short Term Goal (STG) Maggi will stand to cook vacuum kettle for 30 minutes without an increase in her baseline back pain. 06/08/22 unsure if understands but states able to stand up to 3 hours before has to sit down due to LBP but at times if hurries causes increase pain, no time identified. 06/15/22: able to stand 30-60 min cooking in kitchen before LB starts to hurt and needs sit down or goes lay down and do stretches to make go away. 06/20/22: More pain with standing 1 hr to cook meal. STG Duration MET [employer] Goal (LTG) Maggi will walk for 30 minutes without an increase in bilateral hip pain. 06/08/22: GOAL MET: post injection hasn't had hip pain March or Apr. 06/15/22: able to stand 30-60 min cooking in kitchen before LB starts to hurt and needs sit down or goes lay down and do stretches to make go away. 06/20/22: Sometimes pain is worse with walking. LTG Duration MET Assessment Summary Assessment Pt improved back stepping stride post large BIG movements. She good ease receiprocal stepping ascend/ descend stairs with no UE support. Pt reported decreased R hip tightness end tx post manual and her self stim unit at home using more and finding decreases pain when needed. Physical Therapy Plan Frequency and Duration Frequency of Treatment 2x/Week Duration of treatment (weeks) 8 Plan of Care Start Date 09/21/22 Plan of Care End Date 11/16/22 Therapeutic Interventions Therapeutic Interventions Balance Training,Gait Training ,Home Exercise Program,Joint Mobilizations,Manual Therapy, Neuromuscular Re-education, Self-Care/Home Management, Therapeutic Activities, Therapeutic Exercises Modalities Cold Pack/Ice Massage,Electric Stimulation,Hot Packs, Traction- Mechanical Next Visit Focus/Plan Next Note Type Treatment Note Next Visit Plan Encourage large movements. POC: Continue functional activities for balance and foot clearance. Continue to progress standing exercises, gait, continue with bed mobility training.
--- NOTE | 2022-10-26 14:06 | PT.OTN ---
Current Diagnoses Parkinson's disease (10/26/22) Spondylosis without myelopathy or radiculopathy, lumbar region (10/26/22) Spinal stenosis, lumbar region without neurogenic claudication (10/26/22) Trochanteric bursitis, right hip (10/26/22) Physical Therapy Treatment Note PT-OP-A Visit Information Start: 05/16/22 19:55 Freq: Status: Active Protocol: Document 10/26/22 13:48 AMB (Rec: 10/26/22 14:00 AMB [id number]) Out-Patient Physical Therapy Visit Information Visit Information Visit Type Treatment Note Visit Start Time 13:05 Visit Stop Time 14:00 Total Visit Minutes 55 Visit Number 36 Number of RIGGING UP WORKER Visits 0 PT-OP-B Current Condition Start: 05/16/22 19:55 Freq: Status: Active Protocol: Document 05/17/22 13:01 AMB (Rec: 05/17/22 13:20 AMB [id number]) Current Condition History of Current Condition Onset Date actue exacerbation of chronic pain Current Complaints back pain History of Current Condition Maggi attends for back pain, parkinsons. Standing increases the pain. Rolling over in bed is painful and wakes her up. Does do BIG exercises and overall feels better while moving, standing stationary is the most painful . She cooks a lot and this is painful for her. When waking up legs feel weak. Has had PD for years, does notice freezing vinny in doorways, difficulty walking backwards. Treatment Goals Patient/Caregiver Goals STand, roll over less back pain, walking less hip pain bilateral Personal Factors Other Personal Factors That May Effect Parkinsons Therapy/Recovery PT-OP-C Subjective Start: 05/16/22 19:55 Freq: Status: Active Protocol: Document 10/26/22 13:48 AMB (Rec: 10/26/22 14:00 AMB [id number]) OP-PT Subjective Patient Comments Patient Comments Continues to have radiating leg pain. Monday reports nausea, dizziness, and headache. PT-OP-G Mobility & Gait Start: 05/16/22 19:55 Freq: Status: Active Protocol: Document 05/17/22 13:45 AMB (Rec: 05/21/22 21:33 AMB [id number]) OP Mobility Evaluation Bed Mobility Rolling pain with rolling over in bed OP Gait Assessment Comments Gait Comments Freezing at doorway, difficulty with turns, reduced trunk rotation PT-OP-J Posture/Palpation/Skin Start: 05/16/22 19:55 Freq: Status: Active Protocol: Document 05/17/22 13:45 AMB (Rec: 05/21/22 21:33 AMB [id number]) Posture Evaluation Comments Posture Comments Flat lumbar spine Palpation Assessment Location One Palpation Findings Soft Tissue Tightness, Tenderness Palpation Details lumbar paraspinals hypertonic PT-OP-K Range of Motion Start: 05/16/22 19:55 Freq: Status: Active Protocol: Document 06/20/22 13:52 LRN (Rec: 06/20/22 17:09 LRN [id number]) Hip Goniometric Range of Motion Hip Right Passive Straight Leg Raise 70 Abduction 35 Internal Rotation 35 External Rotation 55 Left Passive Testing Position Supine Straight Leg Raise 70 Abduction 30 Internal Rotation 20 External Rotation 65 PT-OP-Q Treatments Start: 05/16/22 19:55 Freq: Status: Active Protocol: Document 10/26/22 13:48 AMB (Rec: 10/26/22 14:00 AMB [id number]) Therapeutic Exercises Supine Exercises sciatic n glide Reps/Minutes 10 Comments good stretch IT band stretch Supine Exercise Name HS, calf stretch as well Side bilateral Resistance in PT only Equipment Used manual Reps/Minutes 30x2 Comments to challenging performing self Sitting Exercises Piriformis stretch Sitting Exercise Name IR/ ER stretch post ther ex Side bilateral Reps/Minutes 60 Comments reports painfree good stretch Standing Exercises Step Ups Standing Exercise Name F/B/Lateral Resistance CGA/ SBA Equipment Used //bar PRN contact Reps/Minutes x10 reps each direction Comments cued awareness LE clearance L> R Gait Training Gait Activity stairs Device Used 0 Level of Assistance S Distance/Duration 28 MAP stairs Treatment Focus foot clearance, receiprocal stepping Comments good form receiprocal stepping asc/descend no UE, stable no AD Description amplitude, head turns, quick starts/stops, bwd stepping Level of Assistance SBA Distance/Duration MAP bldg, ER hallway Treatment Focus increase step length, longer strides, arms swing, upright psosturuing Comments cued chest/head lift, increase stride/heel clearance, arm swing, TS rotation. Manual Therapy Treatment Soft Tissue Mobilization glut med, piriformis Body Location R>L hip Mobilization Type Cross-Friction,Rolling, Sustained Pressure Intensity/Depth Moderate Body Position Sidelying Comments manual, good feedback less tightness post. Discussion self use racquetball and roll on wall. PT-OP-R Modalities Start: 05/16/22 19:55 Freq: Status: Active Protocol: Document 10/26/22 13:45 AMB (Rec: 10/27/22 13:55 AMB [id number]) Electric Stimulation Electric Stimulation Interferential Current (IFC) Body Location low back Duration (Minutes) 10 Intensity 20 Target/Sweep Sweep Patient Position Hooklying Combined With Heat/Cold Hot Pack Comments good feedback response PT-OP-T Assessment and Plan Start: 05/16/22 19:55 Freq: Status: Active Protocol: Document 10/26/22 13:48 AMB (Rec: 10/26/22 14:00 AMB [id number]) Physical Therapy Assessment Goals Two Impairment Transfers Short Term Goal (STG) Maggi will roll over in bed without an increase in back pain. 08/31: Pt reports needs to help her 1-2x/week with bed mobility 10/11/22: Progressing: little bit Rolling R and L at night in R LB/ R L hip. STG Duration 4 weeks progressing 10/11/22 [employer] Consultant Goal (LTG) Maggi will move from supine to standing in the morning after doing her exercises without an increase in back pain. 06/20/22: Pain persists. LTG Duration MET Assessment Summary Assessment Pt specifically requested IFC so did set up at end of session. Discussed gait/ balance concerns, appears more likely to be Parkinson's related rather than lumbar. Pt continues to have radicular sx, pain varies, pt rated at 5/10 today. Pt states pain with bed mobility variable, has good and bad days. Physical Therapy Plan Frequency and Duration Frequency of Treatment 2x/Week Duration of treatment (weeks) 8 Plan of Care Start Date 09/21/22 Plan of Care End Date 11/16/22 Therapeutic Interventions Therapeutic Interventions Balance Training,Gait Training ,Home Exercise Program,Joint Mobilizations,Manual Therapy, Neuromuscular Re-education, Self-Care/Home Management, Therapeutic Activities, Therapeutic Exercises Modalities Cold Pack/Ice Massage,Electric Stimulation,Hot Packs, Traction- Mechanical Next Visit Focus/Plan Next Note Type Treatment Note Next Visit Plan Encourage large movements. POC: Continue functional activities for balance and foot clearance. Continue to progress standing exercises, gait, continue with bed mobility training.
--- NOTE | 2022-11-01 13:16 | PT-OP ANOTE ---
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 Offered call back if want my tomorrow 9am opening or TH am [phone].
--- NOTE | 2022-11-09 14:30 | PT.OTN ---
Current Diagnoses Parkinson's disease (11/09/22) Spondylosis without myelopathy or radiculopathy, lumbar region (11/09/22) Spinal stenosis, lumbar region without neurogenic claudication (11/09/22) Trochanteric bursitis, right hip (11/09/22) Physical Therapy Treatment Note PT-OP-A Visit Information Start: 05/16/22 19:55 Freq: Status: Active Protocol: Document 11/09/22 13:49 SP (Rec: 11/09/22 14:35 SP [id number]) Out-Patient Physical Therapy Visit Information Visit Information Visit Type Treatment Note Visit Note Pt in bathroom when went to get. Visit Start Time 13:50 Visit Stop Time 14:30 Total Visit Minutes 40 Visit Number 37 Number of RESIDENCE DIRECTOR Visits 1 Evaluation Information Evaluation Date 05/17/22 PT-OP-B Current Condition Start: 05/16/22 19:55 Freq: Status: Active Protocol: Document 05/17/22 13:01 AMB (Rec: 05/17/22 13:20 AMB [id number]) Current Condition History of Current Condition Onset Date actue exacerbation of chronic pain Current Complaints back pain History of Current Condition Maggi attends for back pain, parkinsons. Standing increases the pain. Rolling over in bed is painful and wakes her up. Does do BIG exercises and overall feels better while moving, standing stationary is the most painful . She cooks a lot and this is painful for her. When waking up legs feel weak. Has had PD for years, does notice freezing vinny in doorways, difficulty walking backwards. Treatment Goals Patient/Caregiver Goals STand, roll over less back pain, walking less hip pain bilateral Personal Factors Other Personal Factors That May Effect Parkinsons Therapy/Recovery PT-OP-C Subjective Start: 05/16/22 19:55 Freq: Status: Active Protocol: Document 11/09/22 13:49 SP (Rec: 11/09/22 14:35 SP [id number]) OP-PT Subjective Patient Comments Patient Comments Pt arrives niyah toes catching floor rounded posture , soft spoken. She reports didn't do much yesterday due to dizziness and threw up. Stated hasnt told doctor yet, not made an appt. PT-OP-G Mobility & Gait Start: 05/16/22 19:55 Freq: Status: Active Protocol: Document 05/17/22 13:45 AMB (Rec: 05/21/22 21:33 AMB [id number]) OP Mobility Evaluation Bed Mobility Rolling pain with rolling over in bed OP Gait Assessment Comments Gait Comments Freezing at doorway, difficulty with turns, reduced trunk rotation PT-OP-J Posture/Palpation/Skin Start: 05/16/22 19:55 Freq: Status: Active Protocol: Document 05/17/22 13:45 AMB (Rec: 05/21/22 21:33 AMB [id number]) Posture Evaluation Comments Posture Comments Flat lumbar spine Palpation Assessment Location One Palpation Findings Soft Tissue Tightness, Tenderness Palpation Details lumbar paraspinals hypertonic PT-OP-K Range of Motion Start: 05/16/22 19:55 Freq: Status: Active Protocol: Document 06/20/22 13:52 LRN (Rec: 06/20/22 17:09 LRN [id number]) Hip Goniometric Range of Motion Hip Right Passive Straight Leg Raise 70 Abduction 35 Internal Rotation 35 External Rotation 55 Left Passive Testing Position Supine Straight Leg Raise 70 Abduction 30 Internal Rotation 20 External Rotation 65 PT-OP-Q Treatments Start: 05/16/22 19:55 Freq: Status: Active Protocol: Document 11/09/22 13:49 SP (Rec: 11/09/22 14:35 SP [id number]) Gym Equipment Shuttle Recovery bilateral squat Details cued slow pacin Resistance 50# Shuttle Recovery Platform Stable Reps/Time x10 Therapeutic Exercises Supine Exercises fig 4 Supine Exercise Name initiated Side right Resistance manual assist Reps/Minutes 30 Comments good feedback anterior hip stretch piriformis stretch Supine Exercise Name Piriformis stretch Resistance R Equipment Used manual assist Reps/Minutes 30 Comments cued head/ shld relax back table, gentle hug knee toward chest Sitting Exercises lumbar flexion<> sit reach open chest Sitting Exercise Name initiated in PT Reps/Minutes x8 reps Comments good feedback response TS/ LS rotation Sitting Exercise Name TS rotation reaching across body Side bilateral Reps/Minutes x8 reps Comments good feedback stretch Standing Exercises BIG stepping Standing Exercise Name 1. step back trunk flexion arms back 2. step forward arms out side stretch Side bilateral Reps/Minutes x8 Comments cued tall, arms wide Gait Training Gait Activity no AD Description amplitude w/ big arm swing Level of Assistance SBA Distance/Duration small loop clinic Treatment Focus increase step length, longer strides, arms swing, up posturing, arm swing Comments cued arms swing with LE, bigger stride, intermittent cues Manual Therapy Treatment Soft Tissue Mobilization glut med, piriformis Body Location R hip Mobilization Type Cross-Friction,Rolling, Sustained Pressure Intensity/Depth Moderate Body Position Sidelying Comments manual, good feedback less tightness post. Discussion self use racquetball and roll on wall. Neuro Re-Education Treatment Balance Activities ball cone transfer Details squat, cross body reach, change hands over head squat cross body next cone Comments 5 min, floor, uneven cushions, folded mat jose angel stepping Details fwd/bwd/lateral Surface firm Equipment single step over back, alternate, then added oval cushions Reps/Duration 4 laps total Comments cued feet/ trunk forward vinny lateral stepping. PT-OP-R Modalities Start: 05/16/22 19:55 Freq: Status: Active Protocol: Document 10/26/22 13:45 AMB (Rec: 10/27/22 13:55 AMB [id number]) Electric Stimulation Electric Stimulation Interferential Current (IFC) Body Location low back Duration (Minutes) 10 Intensity 20 Target/Sweep Sweep Patient Position Hooklying Combined With Heat/Cold Hot Pack Comments good feedback response PT-OP-T Assessment and Plan Start: 05/16/22 19:55 Freq: Status: Active Protocol: Document 11/09/22 13:49 SP (Rec: 11/09/22 14:35 SP [id number]) Physical Therapy Assessment Goals Two Impairment Transfers Short Term Goal (STG) Maggi will roll over in bed without an increase in back pain. 08/31: Pt reports needs to help her 1-2x/week with bed mobility 10/11/22: Progressing: little bit Rolling R and L at night in R LB/ R L hip. STG Duration 4 weeks progressing 10/11/22 Color Room Attendant Goal (LTG) Maggi will move from supine to standing in the morning after doing her exercises without an increase in back pain. 06/20/22: Pain persists. LTG Duration MET Assessment Summary Assessment Pt improved thoracic rotation, taller posturing stride and arm swing with encouragement and demonstration to follow. R hip decreased discomfort post manual and stretching. Little carryover noted leaving. Pt would benefit from BIG and LOUD protocol for audible speech and bigger movements. Physical Therapy Plan Frequency and Duration Frequency of Treatment 2x/Week Duration of treatment (weeks) 8 Plan of Care Start Date 09/21/22 Plan of Care End Date 11/16/22 Therapeutic Interventions Therapeutic Interventions Balance Training,Gait Training ,Home Exercise Program,Joint Mobilizations,Manual Therapy, Neuromuscular Re-education, Self-Care/Home Management, Therapeutic Activities, Therapeutic Exercises Modalities Cold Pack/Ice Massage,Electric Stimulation,Hot Packs, Traction- Mechanical Next Visit Focus/Plan Next Note Type Treatment Note Next Visit Plan Encourage large movements. POC: Continue functional activities for balance and foot clearance. Continue to progress standing exercises, gait, continue with bed mobility training.
--- NOTE | 2022-11-15 20:51 | PT.OTN ---
Current Diagnoses Parkinson's disease (11/15/22) Spondylosis without myelopathy or radiculopathy, lumbar region (11/15/22) Spinal stenosis, lumbar region without neurogenic claudication (11/15/22) Trochanteric bursitis, right hip (11/15/22) Physical Therapy Treatment Note PT-OP-A Visit Information Start: 05/16/22 19:55 Freq: Status: Active Protocol: Document 11/15/22 13:54 AMB (Rec: 11/15/22 14:33 AMB [id number]) Out-Patient Physical Therapy Visit Information Visit Information Visit Type Discharge Summary Visit Start Time 13:50 Visit Stop Time 14:30 Total Visit Minutes 40 Visit Number 38 PT-OP-B Current Condition Start: 05/16/22 19:55 Freq: Status: Active Protocol: Document 05/17/22 13:01 AMB (Rec: 05/17/22 13:20 AMB [id number]) Current Condition History of Current Condition Onset Date actue exacerbation of chronic pain Current Complaints back pain History of Current Condition Maggi attends for back pain, parkinsons. Standing increases the pain. Rolling over in bed is painful and wakes her up. Does do BIG exercises and overall feels better while moving, standing stationary is the most painful . She cooks a lot and this is painful for her. When waking up legs feel weak. Has had PD for years, does notice freezing vinny in doorways, difficulty walking backwards. Treatment Goals Patient/Caregiver Goals STand, roll over less back pain, walking less hip pain bilateral Personal Factors Other Personal Factors That May Effect Parkinsons Therapy/Recovery PT-OP-C Subjective Start: 05/16/22 19:55 Freq: Status: Active Protocol: Document 11/15/22 13:54 AMB (Rec: 11/15/22 14:33 AMB [id number]) OP-PT Subjective Patient Comments Patient Comments NO dizziness this week. Sees ortho tomorrow. PT-OP-G Mobility & Gait Start: 05/16/22 19:55 Freq: Status: Active Protocol: Document 05/17/22 13:45 AMB (Rec: 05/21/22 21:33 AMB [id number]) OP Mobility Evaluation Bed Mobility Rolling pain with rolling over in bed OP Gait Assessment Comments Gait Comments Freezing at doorway, difficulty with turns, reduced trunk rotation PT-OP-J Posture/Palpation/Skin Start: 05/16/22 19:55 Freq: Status: Active Protocol: Document 05/17/22 13:45 AMB (Rec: 05/21/22 21:33 AMB [id number]-) Posture Evaluation Comments Posture Comments Flat lumbar spine Palpation Assessment Location One Palpation Findings Soft Tissue Tightness, Tenderness Palpation Details lumbar paraspinals hypertonic PT-OP-K Range of Motion Start: 05/16/22 19:55 Freq: Status: Active Protocol: Document 06/20/22 13:52 LRN (Rec: 06/20/22 17:09 LRN [id number]) Hip Goniometric Range of Motion Hip Right Passive Straight Leg Raise 70 Abduction 35 Internal Rotation 35 External Rotation 55 Left Passive Testing Position Supine Straight Leg Raise 70 Abduction 30 Internal Rotation 20 External Rotation 65 PT-OP-Q Treatments Start: 05/16/22 19:55 Freq: Status: Active Protocol: Document 11/15/22 13:45 AMB (Rec: 11/17/22 20:49 AMB [id number]-) Therapeutic Exercises Supine Exercises sciatic n glide Reps/Minutes 10 Comments good stretch ER stretch Supine Exercise Name Figure 4 stretch supine w/10x active stretch Side bilateral Reps/Minutes 2x30 Comments More comfortable in supine Hip PROM Supine Exercise Name Hip PROM Side bilateral Reps/Minutes 6' LTR Side bilateral Equipment Used 55 cm physioball Reps/Minutes x10 ea single knee to chest Supine Exercise Name manual assist initially then able self Side bilateral Equipment Used grasp behind thigh Reps/Minutes 30x2 Comments cued head/ shld relax back table, gentle hug knee toward chest Standing Exercises squats Standing Exercise Name lifting 10# crate from floor Equipment Used on/off floor Reps/Minutes STS from sit chair, then x10 greens picker off floor Comments cued head up, scap retracted, elbows next to ribs, lift LEs/ scap retract Sink Stretch Standing Exercise Name L/sink stretch Equipment Used counter Comments Cues for sinking in to stretch . PT-OP-R Modalities Start: 05/16/22 19:55 Freq: Status: Active Protocol: Document 10/26/22 13:45 AMB (Rec: 10/27/22 13:55 AMB [id number]-) Electric Stimulation Electric Stimulation Interferential Current (IFC) Body Location low back Duration (Minutes) 10 Intensity 20 Target/Sweep Sweep Patient Position Hooklying Combined With Heat/Cold Hot Pack Comments good feedback response PT-OP-T Assessment and Plan Start: 05/16/22 19:55 Freq: Status: Active Protocol: Document 11/15/22 13:54 AMB (Rec: 11/15/22 14:33 AMB [id number]) Physical Therapy Assessment Goals Two Impairment Transfers Short Term Goal (STG) Maggi will roll over in bed without an increase in back pain. STG Duration MET Bandsaw Operator Goal (LTG) Maggi will move from supine to standing in the morning after doing her exercises without an increase in back pain. 06/20/22: Pain persists. 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 06/08/22 unsure if understands but states able to stand up to 3 hours before has to sit down due to LBP but at times if hurries causes increase pain, no time identified. 06/15/22: able to stand 30-60 min cooking in kitchen before LB starts to hurt and needs sit down or goes lay down and do stretches to make go away. 06/20/22: More pain with standing 1 hr to cook meal. STG Duration MET Alf Goal (LTG) Maggi will walk for 30 minutes without an increase in bilateral hip pain. 06/08/22: GOAL MET: post injection hasn't had hip pain March or Apr. 06/15/22: able to stand 30-60 min cooking in kitchen before LB starts to hurt and needs sit down or goes lay down and do stretches to make go away. 06/20/22: Sometimes pain is worse with walking. LTG Duration MET Assessment Summary Assessment Pain in the back with extended sitting for more than 30 minutes. Rolling over in bed is feeling better. Going to consider getting an injection for her back pain. Does feel like stretching can sometimes increase back pain, so reviewed, small improvement with Oswestry, but overall continuing to note pain with extended sitting/stiffness. Physical Therapy Plan Frequency and Duration Frequency of Treatment 2x/Week Duration of treatment (weeks) 8 Plan of Care Start Date 09/21/22 Plan of Care End Date 11/16/22 Therapeutic Interventions Therapeutic Interventions Balance Training,Gait Training ,Home Exercise Program,Joint Mobilizations,Manual Therapy, Neuromuscular Re-education, Self-Care/Home Management, Therapeutic Activities, Therapeutic Exercises Modalities Cold Pack/Ice Massage,Electric Stimulation,Hot Packs, Traction- Mechanical Discharge Physical Therapy Discharge Reasons Plateau in Progress
== END 2022-11-23 14:42 | disposition home or self-care (01) ==
LOC: PHYS 13:45
PROVIDERS: PCP Physician Assistant; Referring Provider Physical Medicine & Rehabilitation Pain Medicine; Visit Provider Physical Medicine & Rehabilitation Pain Medicine
DX: M48.061 Spinal stenosis, lumbar region without neurogenic claudication (principal); M47.816 Spondylosis without myelopathy or radiculopathy, lumbar region; M70.61 Trochanteric bursitis, right hip; G20 Parkinson's disease
CPT/HCPCS: 97014; 97032; 97110; 97112; 97116; 97140; 97162; 97530; 97535; G0283

== ENCOUNTER → 2023-01-30 14:58 | Outpatient (CLI) | payer MEDICARE, OTHER, SELFPAY | PROVIDERS: PCP Physician Assistant; Visit Provider Urology | DX: N32.81 Overactive bladder (principal); R82.81 Pyuria; Z86.69 Personal history of other diseases of the nervous system and sense organs | CPT/HCPCS: 51798; 81002; 87086; 99214 ==

== ENCOUNTER 2024-10-09 09:51 | Day surgery (SDC) | payer MEDICARE, OTHER, SELFPAY ==
--- NOTE | 2024-10-09 | PATH_ITS ---
[facility] Accession Number: [id number] No. of containers..01 Tissue . 01 Material submitted: . stomach - STOMACH . 01 Clinical history: . R/O H.PYLORI . 01 Diagnosis: STOMACH: Gastric mucosa with minimal chronic inflammation. No Helicobacter organisms identified. No intestinal metaplasia, dysplasia, or malignancy identified. [facility] 10/14/20247 Local . 01 Electronically signed: . Moiz Roche MD, Pathologist NPI- [id number] . 01 Gross description: . NO SITE DESIGNATED: Received in formalin are 2 fragment(s) of amor, soft tissue measuring 0.3 x 0.2 x 0.2 cm to 0.3 x 0.3 x 0.2 cm submitted entirely in 1 cassette(s) /DOM 10/14/2024 Local . 01 Microscopic: . STOMACH: An immunohistochemical stain was performed to evaluate for Helicobacter organisms and is negative. The control stains appropriately. * This test was developed and the performance characteristics were validated by [facility]. It has not been cleared or approved by the Food and Drug Administration. . 01 Pathologist provided ICD-10: K29.30 . 01 CPT . 265161, R30391 Specimen Comment: A courtesy copy of this report has been sent to [phone] Performed at: [address] [address], [place], [place] [id number] MD Moiz Roche MD Phone: [phone]
[2024-10-09] MEDS: LACTATED RINGERS 1,000 ML 42 ML IV (10:26)
[2024-10-09 10:47] VITALS: BP 163/85; PULSE 69; RESP 16; TEMP 36.9; O2SAT 97
--- NOTE | 2024-10-09 11:09 | PM.PREOP ---
Pre-operative Note Interval Note History & Physical reviewed/Exam performed by Physician: Yes Changes to H&P: No ASA Class (for procedural sedation): II
--- NOTE | 2024-10-09 11:10 | PM.OP.EGD ---
Operative Date/Time/Diagnoses Date of procedure: 10/09/24 Pre-op diagnosis: Dysphagia and dyspepsia Procedure & Clinicians Study performed: EGD Indications: Dysphagia and dyspepsia Surgeon: Bettie Husain Procedure Notes Procedure in detail: After informed consent was obtained the patient was placed in left lateral decubitus position. The video upper scope was placed into the oropharynx and with the patient's help swallowed into the esophagus. The esophagus stomach and duodenal were carefully examined. On withdrawal, retroflexed view the GE junction performed. The scope was removed. The patient tolerated procedure well. Blood loss none Complications none Sedation mac Findings 1. Normal esophagus 2. Mild patchy erythema biopsies taken to rule out Helicobacter 3. Normal duodenal bulb and sweep Will be in touch by telephone regarding her findings and whether she needs to be treated for Helicobacter.
[2024-10-09 11:23] VITALS: BP 116/55; PULSE 58; RESP 16; TEMP 36.4; O2SAT 96
[2024-10-09 11:29] VITALS: BP 101/54; PULSE 57; RESP 19; TEMP 36.4; O2SAT 95
[2024-10-09 11:36] VITALS: BP 117/73; PULSE 55; RESP 13; TEMP 36.4; O2SAT 95
[2024-10-09 11:40] VITALS: BP 137/80; PULSE 55; RESP 15; TEMP 36.4; O2SAT 96
[2024-10-09 11:47] VITALS: BP 128/81; PULSE 59; RESP 18; TEMP 36.3; O2SAT 98
== END 2024-10-09 12:35 | disposition home or self-care (01) ==
PROVIDERS: PCP Physician Assistant; Referring Provider Internal Medicine Gastroenterology; Visit Provider Internal Medicine Gastroenterology
PROC: 0DJ08ZZ Inspection of Upper Intestinal Tract, Via Natural or Artificial Opening Endoscopic (ICD-10-PCS; CPT 43239; principal; 2024-10-09 14:00)
DX: K29.50 Unspecified chronic gastritis without bleeding (principal)
CPT/HCPCS: 43239; J2704